=== PATIENT | female | born 1945 | race Caucasian/White ===

== ENCOUNTER 2024-06-25 11:45 | Outpatient (CLI) | payer MEDICARE, SELFPAY ==
--- NOTE | ~2024-06-25 | CT_ITS ---
EXAMINATION: CT brain wo con DATE: 06/25/2024 12:02 INDICATION: Syncope. Collapse. TECHNIQUE: Computed tomography (CT) of the head was performed without intravenous contrast. The dose- length product was 599.57 mGy-cm. Automated exposure control and iterative reconstruction technique w ere employed. COMPARISON: None FINDINGS: Generalized atrophy. There are scattered moderate periventricular and subcortical white mat ter changes, most likely related to small vessel ischemic disease (microangiopathy). There is intracr anial atherosclerosis. No ventriculomegaly or midline shift. Basilar cisterns are patent. No acute in farction, hemorrhage, mass or mass effect. There are changes of lens replacement surgery. Paranasal s inuses and mastoids are pneumatized. No depressed skull fractures. IMPRESSION: 1. No acute intracranial abnormality. 2: Chronic age-related findings. Reviewed, dictated and finalized at location A.
== END 2024-06-25 11:46 | disposition home or self-care (01) ==
LOC: MICIMG 11:47
PROVIDERS: PCP Family Medicine; Visit Provider Family Medicine
DX: R55 Syncope and collapse (principal)
CPT/HCPCS: 70450

== ENCOUNTER 2024-07-08 21:18 | Observation (INO) | payer MEDICARE, SELFPAY ==
[2024-07-08] VITALS (18 sets, daily range): BP systolic 143–158; BP diastolic 82–110; PULSE 83–106; RESP 14–20; TEMP 36.5; O2SAT 94–100
--- NOTE | ~2024-07-08 | XR_ITS ---
XR foot RT min 3V Ordering provider: Timi Delgadillo MD History: . pain s/p fall . Comparison: None. FINDINGS: BONES: No acute fracture or dislocation. Postoperative changes in the first and second metatarsal bon es. Osteopenia of the bones. JOINT SPACES: Narrowing of the tarsometatarsal joints. Osteoarthritic changes of the first and second metatarsophalangeal joints. No tarsal coalition. SOFT TISSUES: Normal. Calcaneal spur. IMPRESSION: No acute osseous abnormality of the right foot. Postoperative changes. Reviewed, dictated and finalized at location A.
--- NOTE | ~2024-07-08 | CT_ITS ---
Noncontrast CT scan of the thoracic spine CLINICAL HISTORY: Back pain, status post fall TECHNIQUE: Axial noncontrast imaging of the thoracic spine was performed. Sagittal and coronal reform atted images were constructed. Dose reduction technique was used on this scan by utilizing automated exposure control and iterative reconstruction technique. The dose-length product (DLP) was 576.24 mGy -cm. FINDINGS: There is mild compression deformity of T6, likely acute to subacute. No other fracture or s ubluxation seen. There is severe degenerative disc narrowing from T6 through T10. There are mild face t joint degenerative changes of lower thoracic spine. No definite disc bulge or herniation seen. No d efinite spinal canal stenosis identified. There is bilateral neural foraminal narrowing at T5-T6, T6- T7, T7-T8. Paravertebral soft tissues are unremarkable. Moderate hiatal hernia noted. Impression: T6 compression fracture, likely acute to subacute. Degenerative changes, as above. Reviewed, dictated and finalized at [facility]. Impression: T6 compression fracture, likely acute to subacute. Degenerative changes, as above.
--- NOTE | ~2024-07-08 | XR_ITS ---
XR chest 2V Ordering provider: Timi Delgadillo MD History: 79 years Female with . dizziness, pt fell . Comparison: None. FINDINGS: MEDIASTINUM: The cardiac silhouette is not enlarged. LUNGS: No infiltrates, effusions or pneumothorax. OTHER: No free air under the diaphragm. Kyphosis. Degenerative the spine. Small soft tissue density i s seen in the left paraspinal area is not seen in the lateral view most likely summation shadow. Foll ow-up 3 months x-rays advised for correlation. IMPRESSION: No acute cardiopulmonary pathology. Reviewed, dictated and finalized at location A.
--- NOTE | ~2024-07-08 | XR_ITS ---
XR ankle RT min 3V Ordering provider: Timi Delgadillo MD History: . pain s/p fall . Comparison: None. FINDINGS: BONES: No acute fracture or dislocation. Osteopenia of the bones. Postoperative changes in the pelvic bones. JOINT SPACES: Slight narrowing of the ankle joint. SOFT TISSUES: Soft tissue swelling over the medial and lateral malleoli. Calcaneus spur. IMPRESSION: No acute osseous abnormality of the right ankle. Reviewed, dictated and finalized at location A.
--- NOTE | ~2024-07-08 | XR_ITS ---
XR hip BI 2V w AP pelvis Ordering provider: Timi Delgadillo MD History: . pain s/p fall . Comparison: None. FINDINGS: BONES: No acute fracture or dislocation. HIP JOINT SPACES: Bilateral hip arthroplasty. SACROILIAC JOINT SPACES/LUMBAR SPINE: The sacroiliac joint spaces are normal. Mild degenerative king es of the visualized lower lumbar spine. Postoperative changes in the spine and iliac bones. PUBIC SYMPHYSIS: Normal. SOFT TISSUES: Normal. IMPRESSION: No acute osseous abnormality of the bilateral hips and pelvis. Postoperative changes in the hips and the spine. Reviewed, dictated and finalized at location A.
--- NOTE | ~2024-07-08 | CT_ITS ---
CT brain wo con Ordering provider: Timi Delgadillo MD History: 79 years Female with . dizzy falls . Comparison: June 25, 2024 Technique: CT of the head without contrast. Radiation reduction technique utilized.The dose-length pr oduct was 681 mGy-cm. 3 FINDINGS: BRAIN PARENCHYMA AND CSF SPACES: Moderate leukoaraiosis and diffuse cortical atrophy. Moderate athero matous disease. No midline shift, mass effect or hemorrhage. The brain parenchyma and CSF spaces are otherwise normal. VISUALIZED PARANASAL SINUSES: Well aerated. MASTOIDS: Well aerated. BONES: The bones appear intact. SOFT TISSUES: Visualized nasopharynx is normal. Superficial soft tissues are normal. Hyperdense area seen in the right orbit unchanged from previous IMPRESSION: No acute intracranial findings. Reviewed, dictated and finalized at location A.
--- NOTE | ~2024-07-08 | CT_ITS ---
Noncontrast CT scan of the cervical spine Technique: Multiple contiguous axial [address] images of the cervical spine were obtained and rec onstructed in 2D sagittal and coronal planes on the acquisition scanner. Dose reduction technique was used on this scan by utilizing automated exposure control, adjustment of the mA and/or kV according to patient size. The dose-length product (DLP) was 147.71 mGy-cm. Clinical History: Pain Findings: No fractures or dislocations. There is advanced degenerative disc narrowing at C5-C6 and C 6-C7. There is bilateral neural foraminal narrowing at C5-C6 and probably C6-C7. No prevertebral soft tissue swelling. Impression: No fracture or subluxation of the cervical spine. Degenerative change at the lower cervical spine, as above. Reviewed, dictated and finalized at location M. Impression: No fracture or subluxation of the cervical spine. Degenerative change at the lower cervical spine, as above.
--- NOTE | ~2024-07-08 | XR_ITS ---
XR wrist RT min 3V Ordering provider: Timi Delgadillo MD History: . pain s/p fall . Comparison: None. FINDINGS: BONES: Old fracture of the ulnar spinous process. Possibility of fracture in the distal ulna cannot b e excluded. Clinical correlation advised. JOINT SPACES: Severe osteoarthritic changes of the first carpometacarpal joint and scaphotrapezial ghanshyam int. Narrowing of the radiocarpal joint. SOFT TISSUES: Normal. IMPRESSION: Possible fracture in the distal ulna. Clinical correlation advised Reviewed, dictated and finalized at location A.
--- NOTE | ~2024-07-08 | MR_ITS ---
EXAMINATION: MR brain/brain stem wo/w con DATE: 07/09/2024 12:35 INDICATION: Dizziness TECHNIQUE: Magnetic resonance imaging (MRI) of the brain and brainstem was performed without and with 10 mL ProHance intravenous contrast. Sequences included sagittal and axial T1-weighted SE, axial dif fusion-weighted FS SE, axial T2*-weighted GRE, axial T2-weighted FLAIR, and axial T2-weighted FSE. Po stcontrast axial and coronal T1-weighted SE was obtained. Apparent diffusion coefficient (ADC) maps w ere created. COMPARISON: CT dated 07/08/2024 FINDINGS: There are no areas of restricted diffusion to suggest acute infarction. No intracranial hemorrhage or abnormal intracranial mass lesion. There are scattered areas of nonspecific increased T2-weighted si gnal intensity in the pontine and cerebral white matter, predominantly involving the deep and periven tricular white matter. There are no intraparenchymal signal abnormalities seen on the other pulse seq uences. Symmetric prominence of the sulci and ventricles consistent with moderate age-appropriate dif fuse cerebral volume loss. There are no abnormal extra-axial fluid collections. Flow voids are seen i n the cerebral arteries on the T2-weighted sequences consistent with their expected patency. Changes of bilateral intraocular lens replacement. Visualized orbits and soft tissues are unremarkable. Ther e are no areas of abnormal enhancement on the post contrast images. IMPRESSION: 1. No acute intracranial process. 2. Age-related changes including mild to moderate diffuse volume loss and moderate scattered pontine and cerebral white matter T2 hyperintensity consistent with chronic small vessel ischemic disease. Reviewed, dictated and finalized at location B. IMPRESSION: 1. No acute intracranial process. 2. Age-related changes including mild to moderate diffuse volume loss and moder ate scattered pontine and cerebral white matter T2 hyperintensity consistent wi th chronic small vessel ischemic disease.
--- NOTE | 2024-07-08 21:21 | ECG_ITS ---
Test Date: 2024-07-08 21:26:12 Measurements Intervals Mayo Rate: 96 P: 6 DE: 194 QRS: -7 QRSD: 56 T: 10 QT: 317 QTc: 402 Interpretive Statements SINUS RHYTHM EARLY PRECORDIAL R/S TRANSITION BASELINE ARTIFACT- II, III, AVR, AVL, AVF, V1-V6 BORDERLINE ECG No previous ECG available for comparison Electronically Signed On 07-09-2024 06:19:23 CDT by Vincenzo Colvin D.O.
[2024-07-08 21:45] LABS: Basophils Percent Auto 0.3 % (0.2-1.2); Eosinophils Absolute Auto 0.1 K/mm3 (0-0.3); Eosinophils Percent Auto 1.1 % (0-4.4); Hematocrit 33.9 % (37.0-47.0); Hemoglobin 10.8 g/dL (12.0-15.0); Immature Granulocyte Absolute 0.02 K/mm3 (0.00-0.031); Immature Granulocyte Percent A 0.3 % (0-0.5); Lymphocytes Percent Auto 12.3 % (18.3-44.2); Mean Corpuscular HGB Conc 31.9 g/dl (32-36); Mean Corpuscular Hemoglobin 29.3 pg (26-34); Mean Corpuscular Volume 92.1 fl (80-100); Mean Platelet Volume 9.8 fl (7.4-10.4); Monocytes Absolute Auto 0.7 K/mm3 (0.1-0.6); Neutrophils Absolute Auto 4.9 K/mm3 (1.3-6.7); Platelet Count Result 327 k/mm3 (150-375); Red Blood Count 3.68 M/mm3 (4.2-5.4); Red Cell Distribution Width 14.6 % (11.5-14.5); White Blood Count 6.5 K/mm3 (4.5-10.0)
[2024-07-08 21:55] LABS: Alanine Aminotransferase 14 U/L (6-35); Albumin Level 4.1 g/dL (3.5-5.1); Alkaline Phosphatase 79 U/L (38-126); Anion Gap 10 mmol/L (4-12); Aspartate Amino Transferase 23 U/L (14-36); Bilirubin,Total 0.6 mg/dL (0.2-1.3); Blood Urea Nitrogen 18 mg/dL (7-17); Calcium 8.6 mg/dL (8.4-10.2); Carbon Dioxide 22 mmol/L (22-30); Chloride 97 mmol/L (98-107); Estimated CRCL calculation 44 ml/min; Estimated Glomerular Filt Rate > 60; Glucose 117 mg/dL (65-110); Potassium 4.4 mmol/L (3.4-5.0); Sodium 129 mmol/L (137-145)
--- NOTE | 2024-07-08 22:05 | PC.NURSE ---
Went into pt room to give medication. Pt at scan. Will give medication when pt is back in room.
--- OUTSIDE RECORDS SUMMARY | 2024-07-08 22:18 | XMS_ITS | Referral Summary ---
Author Organization [facility] Medical Office Building B Address [address] [place] [address] Care Team Providers Care Aerial Installer Name Role Phone Ruddy Kingsley MD Primary Care Provider Encounters Date Type Department Care Team Description 06/28/2024 Orders Only [facility] Medical Group Primary Care at [address] [phone] Ruddy Kingsley MD Syncope and collapse 06/24/2024 12:30 PM CDT Ancillary Procedure [facility] Medical [facility] Cardiology at [address] [place] [address] Syncope, unspecified syncope type 05/27/2024 Telephone [facility] Medical [facility] Primary Care at [address] [phone] Ruddy Kingsley MD Medical Question/Miscellane ous 05/24/2024 Telephone [facility] Advanced Medicine 8th [place] [address] [place] [phone] Shelia Johansen 05/21/2024 Results Follow-Up [facility] Medical [facility] Primary Care at [address] [phone] Ruddy Kingsley MD Anemia, unspecified type (Primary Dx) 05/20/2024 10:00 AM [facility] Ancillary Procedure [facility] Vascular and Vein Surgery at [address] [place] [address] Syncope, unspecified syncope type; Syncope and collapse 05/19/2024 10:38 AM [facility] - 05/19/2024 11:59 PM [facility] Hospital Encounter [address] [address] Syncope, unspecified syncope type Discharge Disposition: Discharge to home or self care 05/19/2024 10:30 AM [facility] Lab [facility] Outpatient Lab at [address] [phone] 05/19/2024 9:45 AM [facility] Office Visit [facility] Primary Care at [address] [phone] Ruddy Kingsley MD Syncope, unspecified syncope type (Primary Dx); Syncope and collapse 05/18/2024 Nurse Triage [facility] Primary Care at [address] [phone] Sharee Tariq RN from Last 3 Months Allergies Active Allergy Reactions Criticality Noted Date Comments Mold Other (See comments),Rhinitis Low 11/26/2013 MOLD AND DUST CAUSE EYE IRRITATION AND RUNNY NOSE Other Rhinitis Low 02/22/2021 Agent: Dust Medications traMADoL (ULTRAM) 50 mg tabletIndications :Degeneration of intervertebral disc of lumbar region, unspecified whether pain present TAKE ONE-HALF TABLET BY MOUTH EVERY 8 HOURS NEEDED 12/02/19 24 Active latanoprost (XALATAN) 0.005 % ophthalmic solution 07/20/19 21 Active cholecalciferol (VITAMIN D-3) 5,000 unit capsuleIndication s:Vitamin D insufficiency Active cetirizine (ZyrTEC) 10 mg tablet Take 1 tablet (10 mg total) by mouth Active acetaminophen (TYLENOL) 325 mg tablet Take 2 tablets (650 mg total) by mouth every 4 (four) hours as needed 02/25/20 21 Active baclofen (LIORESAL) 10 mg tablet Take 1 tablet (10 mg total) by mouth nightly 01/03/20 21 Active dorzolamide (TRUSOPT) 2 % ophthalmic solution 1 drop 3 (three) times a day Active lisinopriL (PRINIVIL,ZESTRIL ) 10 mg tabletIndications :Essential hypertension Take 1 tablet (10 mg total) by mouth daily 90 tablet 3 01/22/20 24 2024 Active ferrous sulfate 325 mg (65 mg of elemental iron) tabletIndications :Iron Deficiency Anemia Take 1 tablet (325 mg total) by mouth daily with breakfast 30 tablet 05/21/[address] (PROTONIX) 40 mg EC tabletIndications :Gastroesophageal reflux disease without esophagitis Take 1 tablet (40 mg total) by mouth daily 30 tablet 3 06/30/19 25 2025 Active venlafaxine XR (EFFEXOR-XR) 150 mg 24 hr capsule Take 1 capsule (150 mg total) by mouth daily Take with 75 mg xr tab to bring total dose to 225 mg daily 30 capsule 06/30/19 Active venlafaxine XR (EFFEXOR-XR) 75 mg 24 hr capsule Take 1 capsule (75 mg total) by mouth daily Take with 150 mg xr tab to bring total dose to 225 mg daily 30 capsule 06/30/192025 Active pantoprazole DR (PROTONIX) 40 mg EC tabletIndications :Gastroesophageal reflux disease without esophagitis Take 1 tablet (40 mg total) by mouth daily 12/14/19 21 2024 Discontinued(R eorder) venlafaxine 225 mg tablet extended release 24hr 24 hr tabletIndications :Anxiety with Depression Take 1 tablet (225 mg total) by mouth daily with breakfast 30 tablet 3 01/22/20 24 2024 Discontinued Active Problems Problem Noted Date Diagnosed Date Syncope 05/23/2024 Encounter for medical examination to establish c are 01/22/2024 Assessment & Plan (01/22/2024 11:50 AM CDT): A(n) initial well visit to establish care has been performed today. Stella Connors is not up to date on screening tests. She is in need of DEXA, hepatitis B, C, and Cholesterol screening. She is not up to date on needed preventative vaccinations; She is in need of Influenza and Zoster. We discussed healthy lifestyle habits, educational material has been given. Medications reviewed, changes documented as per the medical record and discussed with patient along with risks vs benefits. Specific topics reviewed: drugs, ETOH, and tobacco, importance of regular dental care, importance of regular exercise, importance of varied diet, limit TV, media violence, minimize junk food, and seat belts. Will increase venlafaxine to 225 mg daily, also increase lisinopril to 10 mg daily Will consider neuroimaging; but I want to see the labs first Continue current regimen otherwise for now Return in 6 months Tension headache, chronic 01/22/2024 Difficulty sleeping 09/18/2021 Cellulitis of left lower leg 02/23/2021 Dizziness 11/24/2020 Urge incontinence 11/24/2020 Myofascial pain 11/02/2020 Postlaminectomy syndrome of lumbar region 2019 Facet degeneration of lumbosacral region 020 Lumbar disc disease with radiculopathy 0 Lumbar disc herniation 06/14/2019 Macrocytic anemia 11/17/2018 B12 deficiency 06/17/2018 Benign paroxysmal positional vertigo 08/21/2017 Incidental pulmonary nodule 06/03/2017 H/O total hip arthroplasty, right 05/26/2017 Primary osteoarthritis of right hip 05/26/2017 DDD (degenerative disc disease), lumbar 05/12/19 18 Glaucoma of both eyes 05/12/2017 Overview (01/22/2024): Only using drops in right eye Seasonal allergic rhinitis due to pollen 018 Insomnia 12/25/2015 Gastroesophageal reflux disease 06/23/2015 Hyperglycemia 06/23/2015 Recurrent major depressive disorder, in full rem ission 06/23/2015 Localized osteoarthrosis of left hip 03/09/2013 Degenerative arthritis of hip 02/16/2013 Hyperlipidemia 12/30/2012 Overview (01/22/2024): KOKI REVELES MD Raynaud's syndrome 06/22/2010 Overview (01/22/2024): Severity:controlled Chronicity:chronic NASRIN GEE MD Chronic low back pain 04/26/2010 Overview (01/22/2024): Severity:moderate Chronicity:acute NASRIN GEE MD Depressive disorder 11/29/2009 Overview (01/22/2024): KOKI REVELES MD Essential hypertension 10/30/2007 Overview (01/22/2024): KOKI REVELES MD Immunizations Immunization Administration Dates Next Due H1N1 Inj 04/13/2009 Influenza, Quadrivalent, Hig h Dose, Preservative Free, Intrr 03/18/2022,01/03/2021,12/25/2019 Influenza, Quadrivalent, Spl it, Preservative Free, Intramuscular 12/10/2017,01/12/2014,07/14/2011,02/12 Influenza, Trivalent, High D ose, Split, Preservative Free, Intramuscular 02/22/2019,02/11/2017,02/09/2017,12/24,03/16/2015 Influenza, Trivalent, IM (MDV) 02/06/2023,2021 Influenza, Trivalent, Preser vative Free, Intramuscular 03/31/2013 Influenza, Unspecified 12/28/2023,12/31/2011,01/2011 [employer] Sars-Cov-2 Bivalent V accination (12+ YRS) 03/18/2022 Pneumococcal Conjugate PCV 13 04/19/2015, 015 Pneumococcal Polysaccharide PPV23 12/29/2012 Tdap 04/14/2022 Social History Tobacco Use Types Packs/Day Years Used Date Smoking Tobacco: Never Smokeless Tobacco: Never Tobacco Cessation:Counseling Given: Not Answered AUDIT-C Answer Date Recorded Q1: How often do you have a drink containing alcohol? 4 or more times a week 01/22/2024 Q2: How many drinks containi ng alcohol do you have on a typical day when you are drinking? 1 or 2 Q3: How often do you have si x or more drinks on one occasion? Never 01/22/2024 PHQ-2 Answer Date Recorded PHQ-2 Total Score (If total score is 3 or more points, staff should administer the PHQ-9) 1 05/19/2024 PHQ-9 Answer Date Recorded PHQ-9 Total Score 5 05/19/2024 Comments Unknown Sex and Gender Information Value Date Recorded Sex Assigned at Not on file Legal Sex Female 3:59 PM CDT Gender Identity Not on file Sexual Orientation Not on file Last Filed Vital Signs Vital Sign Reading Time Taken Comments Blood Pressure 112/70 05/19/2024 9:58 AM [facility] Pulse 122 05/19/2024 9:58 AM [facility] Temperature 36 C (96.8 F) 05/19/2024 9:42 AM [facility] Respiratory Rate 18 05/19/2024 9:42 AM [facility] Oxygen Saturation 97% 05/19/2024 9:58 AM [facility] Inhaled Oxygen Concentration - - Weight 56.7 kg (125 lb) 05/19/2024 9:42 AM [facility] Height 152.4 cm (5') 05/19/2024 9:42 AM [facility] Body Mass Index 24.41 05/19/2024 9:42 AM [facility] Plan of Treatment Not on file Procedures Procedure Name Priority Date/Time Associated Diagnosis Comments TRANSTHORACIC ECHO (TTE) COMPLETE W DOPPLER/CF WO CONTRAST Routine 06/24/2024 12:56 PM CDT Syncope, unspecified syncope type US CAROTIDS DUPLEX BILATERAL Schedule Routine, Read Routine (OP Routine) 05/20/2024 10:29 AM [facility] Syncope, unspecified syncope type Syncope and collapse EGFR Routine 05/19/2024 10:38 AM [facility] [facility] Syncope, unspecified syncope type DIFFERENTIAL AUTO Routine 05/19/2024 10: 38 AM [facility] [facility] Syncope, unspecified syncope type MAGNESIUM Routine 05/19/2024 10:38 AM [facility] Syncope, unspecified syncope type COMPREHENSIVE METABOLIC PANEL Routine 05/19/2024 10:38 AM [facility] Syncope, unspecified syncope type CBC WITH AUTO DIFFERENTIAL Routine 05/19/2024 10:38 AM [facility] Syncope, unspecified syncope type ECG 12-LEAD Routine 05/19/2024 10:16 AM [facility] [facility] Syncope, unspecified syncope type from Last 3 Months Results * TRANSTHORACIC ECHO (TTE) COMPLETE W DOPPLER/CF WO CONTRAST (06/24/2024 12:56 PM CDT) LV EF 65 % CONS SCIMAGE Anatomical Region Laterality Modality Ultrasound 06/24/2024 12:3 5 PM CDT Narrative 06/25/2024 7:09 AM CDT [facility] Medical Group Cardiology [address], [address], [place] [address] P:[phone] P:[phone] Echocardiographic Report Patient Name: STELLA CONNORS : 1945 Study Date: 06/24/2024 12:35:22 PM Gender: F Tech: SW Location: [facility] Ref Provider: RUDDY KINGSLEY Height(Cm): 152 BSA: 1.55 Weight(Kg): 56.7 Heart Rate: 93 BP: 112 / 70 Quality: Good Order Provider: RUDDY KINGSLEY PROCEDURES: Echocardiographic Report: Transthoracic echocardiogram with complete 2D, M-Mode, and color Doppler examination. With Strain Analysis. INDICATIONS: R55 Syncope and collapse. MEASUREMENTS: 2D/MM Value Range Doppler Value Range EF Mod BP 54 % [ 54 - 74 ] AV Mean PG 4 mmHg Estimated EF 65 % AV Peak Hira 1.40 m/s [ 1.00 - 1.70 ] LVIDd 2D 3.99 cm [ 3.80 - 5.20 ] AV Peak PG 8 mmHg LVIDd MM 4.79 cm [ 3.80 - 5.20 ] AV VTI 24.81 cm LVIDs 2D 2.65 cm [ 2.20 - 3.50 ] LVOT Peak Hira 0.89 m/s [ 0.70 - 1.10 ] LVIDs MM 3.03 cm [ 2.20 - 3.50 ] LVOT VTI 16.73 cm LVPWd 2D 0.82 cm [ 0.60 - 0.90 ] MV E Peak Hira 0.61 m/s [ 0.60 - 1.30 ] LVPWd MM 0.93 cm [ 0.60 - 0.90 ] MV A Peak Hira 0.93 m/s [ 1.00 - 1.20 ] IVSd 2D 0.76 cm [ 0.60 - 0.90 ] MV Decel Time 179 msec [ 104 - 258 ] IVSd MM 0.76 cm [ 0.60 - 0.90 ] PV Peak Hira 0.72 m/s [ 0.40 - 0.80 ] LA Dimension MM 3.33 cm [ 2.70 - 3.80 ] TR Peak Hira 2.57 m/s [ 1.00 - 2.80 ] AoR Diam MM 3.08 cm [ 2.70 - 3.70 ] TR Peak PG 26 mmHg LA Volume Index 34 cc/m2 [ 16 - 34 ] RVSP 34.00 mmHg [ 10.00 - 36.00 ] Lateral E` 0.07 m/s [ 0.10 - 0.15 ] E/E` 9 2D/MM Value Range Doppler Value Range - FINDINGS: Interpretation Site: Exam was interpreted at [facility]. Left Ventricle: Normal left ventricular size. Normal global left ventricular systolic function. Impaired diastolic relaxation Grade I. Ejection fraction is measured at 54 %. Ejection Fraction is visually estimated to be 65 %. Global Longitudinal Strain is -16 %. Right Ventricle: Normal right ventricular size. Left Atrium: There is mild enlargement of left atrium. Right Atrium: The right atrium is normal in size. Atrial Septum: Normal atrial septum. Mitral Valve: Normal appearance of the mitral valve. Trivial regurgitation of the mitral valve. Aortic Valve: Normal appearance of the aortic valve. Tricuspid Valve: Normal appearance of the tricuspid valve. Estimated peak RVSP is 34 mmHg. Mild tricuspid regurgitation. Pulmonic Valve: Normal appearance of the pulmonic valve. Pericardium: Normal pericardium with no significant pericardial effusion. Aorta: Normal aortic root. IVC: Normal size and normal respiratory collapse consistent with normal right atrial pressure (<5 mmHg). Pulmonary Artery: Normal pulmonary artery size. CONCLUSIONS: Normal left ventricular size. Normal global left ventricular systolic function. Impaired diastolic relaxation Grade I. Ejection fraction is measured at 54 %. Ejection Fraction is visually estimated to be 65 %. Global Longitudinal Strain is -16 %. There is mild enlargement of left atrium. Normal appearance of the mitral valve. Trivial regurgitation of the mitral valve. Electronically Signed By: Jay Wisdom MD, [facility] 06/25/2024 7:09:17 AM CDT Procedure Note Jay Wisdom MD - 06/25/2024 [facility] Medical Group Cardiology [address], [address], [place] [address] P:[phone] P:[phone] Echocardiographic Report Patient Name: STELLA CONNORS : 1945 Study Date: 06/24/2024 12:35:22 PM Gender: F Tech: Location: [facility] Ref Provider: RUDDY KINGSLEY Height(Cm): 152 BSA: 1.55 Weight(Kg): 56.7 Heart Rate: 93 BP: 112 / 70 Quality: Good Order Provider: RUDDY KINGSLEY PROCEDURES: Echocardiographic Report: Transthoracic echocardiogram with complete 2D, M-Mode, and color Dopplerexamination. With Strain Analysis. INDICATIONS: R55 Syncope and collapse. MEASUREMENTS: 2D/MM Value Range Doppler ValueRange EF Mod BP 54 % [ 54 - 74 ] AV Mean PG 4mmHg Estimated EF 65 % AV Peak Hira 1.40m/s [ 1.00 - 1.70 ] LVIDd 2D 3.99 cm [ 3.80 - 5.20 ] AV Peak PG 8mmHg LVIDd MM 4.79 cm [ 3.80 - 5.20 ] AV VTI 24.81cm LVIDs 2D 2.65 cm [ 2.20 - 3.50 ] LVOT Peak Hira 0.89m/s [ 0.70 - 1.10 ] LVIDs MM 3.03 cm [ 2.20 - 3.50 ] LVOT VTI 16.73cm LVPWd 2D 0.82 cm [ 0.60 - 0.90 ] MV E Peak Hira 0.61m/s [ 0.60 - 1.30 ] LVPWd MM 0.93 cm [ 0.60 - 0.90 ] MV A Peak Hira 0.93m/s [ 1.00 - 1.20 ] IVSd 2D 0.76 cm [ 0.60 - 0.90 ] MV Decel Time 179msec [ 104 - 258 ] IVSd MM 0.76 cm [ 0.60 - 0.90 ] PV Peak Hira 0.72m/s [ 0.40 - 0.80 ] LA Dimension MM 3.33 cm [ 2.70 - 3.80 ] TR Peak Hira 2.57m/s [ 1.00 - 2.80 ] AoR Diam MM 3.08 cm [ 2.70 - 3.70 ] TR Peak PG 26mmHg LA Volume Index 34 cc/m2 [ 16 - 34 ] RVSP 34.00mmHg [ 10.00 - 36.00 ] Lateral E` 0.07 m/s [ 0.10 - 0.15 ] E/E` 9 2D/MM Value Range Doppler ValueRange - FINDINGS: Interpretation Site: Exam was interpreted at [facility]. Left Ventricle: Normal left ventricular size. Normal global left ventricular systolicfunction. Impaired diastolic relaxation Grade I. Ejection fraction is measured at 54 %.Ejection Fraction is visually estimated to be 65 %. Global Longitudinal Strain is -16 %. Right Ventricle: Normal right ventricular size. Left Atrium: There is mild enlargement of left atrium. Right Atrium: The right atrium is normal in size. Atrial Septum: Normal atrial septum. Mitral Valve: Normal appearance of the mitral valve. Trivial regurgitation of the mitralvalve. Aortic Valve: Normal appearance of the aortic valve. Tricuspid Valve: Normal appearance of the tricuspid valve. Estimated peak RVSP is 34 mmHg.Mild tricuspid regurgitation. Pulmonic Valve: Normal appearance of the pulmonic valve. Pericardium: Normal pericardium with no significant pericardial effusion. Aorta: Normal aortic root. IVC: Normal size and normal respiratory collapse consistent with normal rightatrial pressure (<5 mmHg). Pulmonary Artery: Normal pulmonary artery size. CONCLUSIONS: Normal left ventricular size. Normal global left ventricular systolicfunction. Impaired diastolic relaxation Grade I. Ejection fraction is measured at 54 %.Ejection Fraction is visually estimated to be 65 %. Global Longitudinal Strain is -16 %. There is mild enlargement of left atrium. Normal appearance of the mitral valve. Trivial regurgitation of the mitralvalve. Electronically Signed By: Jay Wisdom MD, [facility] 06/25/2024 7:09:17 AM CDT us Ruddy Kingsley MD CV ECHO PROCEDURES Final Re sult * US Carotids (05/20/2024 10:29 AM [facility]) Anatomical Region Laterality Modality Vascular Bilateral Ultrasound 05/20/2024 9:54 AM [facility] Narrative 05/21/2024 8:10 AM [facility] Vascular & Vein Surgery [address] [place] [address] Carotid Duplex Ultrasound Report Patient Name: STELLA CONNORS : 1945 (79y ) Study Date: 05/20/2024 9:54:48 AM Gender: F Mail Room Clerk: Location: [facility] Ref Provider: RUDDY KINGSLEY Quality: Adequate Order Provider: RUDDY KINGSLEY PROCEDURES: Carotid Report: Carotid duplex examination of the extracranial arteries was performed using 2D, color and spectral Doppler. INDICATIONS: R55 Syncope and collapse and R55 Syncope and collapse. HISTORY: Hypertension. Hyperlipidemia. COMPARISONS: Prior MRA 03/21/18- WN. MEASUREMENTS: Right Value Left Value RT Prox CCA PSV 104 cm/sec LT Prox CCA PSV 90 cm/sec RT Prox CCA EDV 13 cm/sec LT Prox CCA EDV 12 cm/sec RT Distal CCA PSV 77 cm/sec LT Distal CCA PSV 72 cm/sec RT Distal CCA EDV 15 cm/sec LT Distal CCA EDV 14 cm/sec RT Prox ICA PSV 95 cm/sec LT Prox ICA PSV 89 cm/sec RT Prox ICA EDV 10 cm/sec LT Prox ICA EDV 12 cm/sec RT Mid ICA PSV 91 cm/sec LT Mid ICA PSV 67 cm/sec RT Mid ICA EDV 26 cm/sec LT Mid ICA EDV 19 cm/sec RT Distal ICA PSV 78 cm/sec LT Distal ICA PSV 77 cm/sec RT Distal ICA EDV 18 cm/sec LT Distal ICA EDV 19 cm/sec RT ECA Prx PSV 67 cm/sec LT ECA Prx PSV 57 cm/sec RT ICA/CCA 1.23 ratio LT ICA/CCA 1.23 ratio Rt Vert Dst PSV 62 cm/sec Lt Vert Dst PSV 61 cm/sec FINDINGS: Rt Common Carotid Artery: Duplex imaging of the right common carotid artery is within normal limits without evidence of atherosclerotic disease. Tortuous at origin. Rt Internal Carotid Artery: The plaque in the right internal carotid artery appears to be heterogeneous and smooth. Atherosclerotic changes of the right internal carotid artery without hemodynamically significant Doppler findings. <50% stenosis. Tortuous at distal segment. Rt External Carotid Artery: The right external carotid artery is patent without evidence of atherosclerotic plaque. Rt Vertebral Artery: The right vertebral artery is patent with antegrade flow. Lt Common Carotid Artery: Duplex imaging of the left common carotid artery is within normal limits without evidence of atherosclerotic disease. Lt Internal Carotid Artery: The plaque in the left internal carotid artery appears to be homogenous and smooth. Atherosclerotic changes of the left internal carotid artery without hemodynamically significant Doppler findings. <50% stenosis. Tortuous at distal segment. Lt External Carotid Artery: The left external carotid artery is patent without evidence of atherosclerotic plaque. Lt Vertebral Artery: The left vertebral artery is patent with antegrade flow. Comments: Brachial artery systolic blood pressure is 137 on the right, 128 on the left. CONCLUSIONS: 1. No evidence of hemodynamically significant disease of the bilateral extracranial carotid system. ATTESTATION: I have reviewed and interpreted the pertinent images and measurements of this study. I attest to the conclusions in the final report that is provided above. Electronically Signed By: Deshaun Rodriguez MD 05/21/2024 8:09:43 AM [facility] Procedure Note Deshaun Rodriguez MD - 05/21/2024 Vascular & Vein Surgery [address] [place] [id number] Carotid Duplex Ultrasound Report Patient Name: STELLA CONNORS : 1945 (79y ) Study Date: 05/20/2024 9:54:48 AM Gender: F Mail Room Clerk: Location: [facility] Ref Provider: RUDDY KINGSLEY Quality: Adequate Order Provider: RUDDY KINGSLEY PROCEDURES: Carotid Report: Carotid duplex examination of the extracranial arterieswas performed using 2D, color and spectral Doppler. INDICATIONS: R55 Syncope and collapse and R55 Syncope and collapse. HISTORY: Hypertension. Hyperlipidemia. COMPARISONS: Prior MRA 03/21/18- WNL. MEASUREMENTS: Right Value Left Value RT Prox CCA PSV 104 cm/sec LT Prox CCA PSV 90 cm/sec RT Prox CCA EDV 13 cm/sec LT Prox CCA EDV 12 cm/sec RT Distal CCA PSV 77 cm/sec LT Distal CCA PSV 72 cm/sec RT Distal CCA EDV 15 cm/sec LT Distal CCA EDV 14 cm/sec RT Prox ICA PSV 95 cm/sec LT Prox ICA PSV 89 cm/sec RT Prox ICA EDV 10 cm/sec LT Prox ICA EDV 12 cm/sec RT Mid ICA PSV 91 cm/sec LT Mid ICA PSV 67 cm/sec RT Mid ICA EDV 26 cm/sec LT Mid ICA EDV 19 cm/sec RT Distal ICA PSV 78 cm/sec LT Distal ICA PSV 77 cm/sec RT Distal ICA EDV 18 cm/sec LT Distal ICA EDV 19 cm/sec RT ECA Prx PSV 67 cm/sec LT ECA Prx PSV 57 cm/sec RT ICA/CCA 1.23 ratio LT ICA/CCA 1.23 ratio Rt Vert Dst PSV 62 cm/sec Lt Vert Dst PSV 61 cm/sec FINDINGS: Rt Common Carotid Artery: Duplex imaging of the right common carotidartery is within normal limits without evidence of atherosclerotic disease. Tortuous atorigin. Rt Internal Carotid Artery: The plaque in the right internal carotidartery appears to be heterogeneous and smooth. Atherosclerotic changes of the right internalcarotid artery without hemodynamically significant Doppler findings. <50% stenosis.Tortuous at distal segment. Rt External Carotid Artery: The right external carotid artery is patentwithout evidence of atherosclerotic plaque. Rt Vertebral Artery: The right vertebral artery is patent with antegradeflow. Lt Common Carotid Artery: Duplex imaging of the left common carotid arteryis within normal limits without evidence of atherosclerotic disease. Lt Internal Carotid Artery: The plaque in the left internal carotid arteryappears to be homogenous and smooth. Atherosclerotic changes of the left internalcarotid artery without hemodynamically significant Doppler findings. <50% stenosis.Tortuous at distal segment. Lt External Carotid Artery: The left external carotid artery is patentwithout evidence of atherosclerotic plaque. Lt Vertebral Artery: The left vertebral artery is patent with antegradeflow. Comments: Brachial artery systolic blood pressure is 137 on the right, 128on the left. CONCLUSIONS: 1. No evidence of hemodynamically significant disease of the bilateralextracranial carotid system. ATTESTATION: I have reviewed and interpreted the pertinent images and measurements ofthis study. I attest to the conclusions in the final report that is provided above. Electronically Signed By: Deshaun Rodriguez MD 05/21/2024 8:09:43 AM [facility] Ruddy Kingsley MD IMG US PROCEDURES Final Res ult * eGFR (05/19/2024 10:38 AM [facility]ET [facility]) eGFR 86 >=60 mL/min/1. 73 m2 Comment: Interpretive Data Reference Interval Normal >/= 90 mL/min/1.73m2 Mildly decreased* 60 - 89 mL/min/1.73m2 Mildly to moderately decreased 45 - 59 mL/min/1.73m2 Moderately to severely decreased 30 - 44 mL/min/1.73m2 Severely decreased 15 - 29 mL/min/1.73m2 Kidney Failure < 15 mL/min/1.73m2 *Relative to young adult level Estimated glomerular filtration rate is determined by the 2020 CKD-EPI equation recommended by the National [employer] (A Unifying Approach to GFR Estimation: Recommendations of the NKF-ASK Task Force on Reassessing the Inclusion of Race in Diagnosing Kidney Disease, JASN 2020). The CKD-EPI equation should not be used for patients with unstable renal function and has not been validated in children and those over 70. Current interpretive data was last reviewed 2021. Blood 05/19/2024 10:3 8 AM [facility] 05/19/2024 2:52 PM [facility] Ruddy Kingsley MD LAB BLOOD ORDERABLES Final Result [facility] [id number] [address] [place] [address] * Differential, auto (05/19/2024 10:38 AM MARKET GARDENER) Neutrophil abs 3.2 1.5 - 6.5 K/cumm Imm gran abs 0.0 0.0 - 0.1 K/cumm [facility] Lymphocyte abs 1.7 0.8 - 3.3 K/cumm [facility] Monocyte abs 0.5 0.2 - 0.8 K/cumm [facility] Eosinophil abs 0.2 0.0 - 0.5 K/cumm [facility] Basophil abs 0.0 0.0 - 0.1 K/cumm [facility] Neutrophil pct 56.5 % [facility] Comment: Interpretive Data Percent cell count reference ranges are not reported, since discordance with absolute values may lead to misinterpretation of CBC data. Current Interpretive Data was last revised on 2017. Imm gran pct 0.4 % [facility] Comment: Interpretive Data Percent cell count reference ranges are not reported, since discordance with absolute values may lead to misinterpretation of CBC data. Current Interpretive Data was last revised on 2017. Lymphocyte pct 30.0 % [facility] Comment: Interpretive Data Percent cell count reference ranges are not reported, since discordance with absolute values may lead to misinterpretation of CBC data. Current Interpretive Data was last revised on 2017. Monocyte pct 9.0 % [facility] Comment: Interpretive Data Percent cell count reference ranges are not reported, since discordance with absolute values may lead to misinterpretation of CBC data. Current Interpretive Data was last revised on 2017. Eosinophil pct 3.4 % [facility] Comment: Interpretive Data Percent cell count reference ranges are not reported, since discordance with absolute values may lead to misinterpretation of CBC data. Current Interpretive Data was last revised on 2017. Basophil pct 0.7 % [facility] Comment: Interpretive Data Percent cell count reference ranges are not reported, since discordance with absolute values may lead to misinterpretation of CBC data. Current Interpretive Data was last revised on 2017. Blood 05/19/2024 10:3 8 AM MARKET GARDENER 05/19/2024 2:51 PM MARKET GARDENER us Ruddy Kingsley MD LAB BLOOD ORDERABLES Final Result Performing Organization Address City/State/ZIP Co la Phone Number [facility] [address] Department [place] [address] * (ABNORMAL) CBC with auto differential (05/19/2024 10:38 [address] MARK[address] GARDENER) Pathologist [facility] WBC 5.7 3.8 - 9.9 K/cumm Hgb 9.0(L) 11.9 - 15.5 g/dL [facility] Hct 29.4(L) 35.6 - 45.5 % [facility] Plt 382 150 - 400 K/cumm [facility] MPV 10.1 9.1 - 12.3 fL [facility] RBC 3.12(L) 3.90 - 5.20 M/cumm [facility] MCV 94.2 81.3 - 96.4 fL [facility] MCH 28.8 27.1 - 33.3 pg [facility] MCHC 30.6(L) 32.3 - 35.7 g/dL [facility] RDW CV 14.4 11.1 - 14.9 % [facility] RDW SD 49.2(H) 35.7 - 48.1 fL [facility] NRBC abs 0.00 0.00 - 0.01 K/cumm [facility] Blood 05/19/2024 10:3 8 AM MARKET GARDENER 05/19/2024 2:51 PM MARK[address] GARDENER Ruddy Kingsley MD LAB BLOOD ORDERABLES Final Result Performing Organization Address City/[facility] Co de Phone Number [facility] [address] [place] [address] * Magnesium (05/19/2024 10:38 [address] MARK[address] GARDENER) [facility] Magnesium 2.0 1.4 - 2.5 mg/dL Blood 05/19/2024 10:3 8 AM MARKET GARDENER 05/19/2024 2:51 PM MARK[address] GARDENER Ruddy Kingsley MD LAB BLOOD ORDERABLES Final Result Performing Organization Address [facility] Co de Phone Number [facility] [address] Department [place] [address] * (ABNORMAL) Comprehensive metabolic panel (05/19/2024 10:[address] G[address]ENER) Sodium 131(L) 135 - 145 mmol/L Potassium, pl 4.6 3.3 - 4.9 mmol/L [facility] Chloride 96(L) 97 - 110 mmol/L [facility] CO2 24 22 - 32 mmol/L [facility] Anion gap 11 2 - 15 mmol/L [facility] BUN 18 6 - 25 mg/dL [facility] Creatinine 0.71 0.60 - 1.10 mg/dL [facility] Glucose 93 70 - 199 mg/dL [facility] Comment: Interpretive Data Fasting glucose >/= 126 mg/dl is diagnostic for diabetes. Fasting is defined as no caloric intake for at least 8 hours. Fasting glucose between 100 mg/dl to 125 mg/dl is diagnostic of prediabetes. In a patient with classic symptoms of hyperglycemia or hyperglycemic crisis, a random glucose >/= 200 mg/dl is diagnostic for diabetes. In the absence of unequivocal hyperglycemia, results should be confirmed by repeat testing. The classification and Diagnosis of Diabetes Diabetes Care 2021; 46: S19-S40. Current interpretive data was last revised 2022. Calcium 9.4 8.5 - 10.3 mg/dL [facility] Bilirubin, total 0.3 0.1 - 1.2 mg/dL [facility] Protein, pl 6.8 6.5 - 8.5 g/dL [facility] Albumin 4.1 3.5 - 5.0 g/dL [facility] Alk phos 72 40 - 130 Units/L [facility] ALT 11 7 - 45 Units/L [facility] AST 24 10 - 45 Units/L [facility] Blood 05/19/2024 10:3 8 AM MARK[address] GARDENER 05/19/2024 2:51 PM MARKET GARDENER us Ruddy Kingsley MD LAB BLOOD ORDERABLES Final Result [facility] [place] [id number] [place] [address] * ECG 12-LEAD (05/19/2024 10:16 AM MARK[address] GARDENER) Narrative Ruddy Kingsley MD - 05/19/2024 10:16 AM MARK[address] GARDENER Ruddy Kingsley MD 05/23/2024 11:22 AM ECG 12 lead Date/Time: 05/19/2024 10:16 AM Performed by: Ruddy Kingsley MD Authorized by: Ruddy Kingsley MD Comparison: not compared with previous ECG Previous ECG: no previous ECG available Rhythm: sinus rhythm Rate: normal QRS axis: normal Conduction: conduction normal ST Segments: ST segments normal T flattening: V1-V6 Clinical impression: non-specific ECG us Ruddy Kingsley MD ECG ORDERABLES Edited Resu lt - Final from Last 3 Months Insurance [facility] Address: [address] [address] [facility] Address: [address] [address] Care Teams Aerial Installer Relationship Specialty Start Date End Date Ruddy Kingsley MD [address] [address] PCP - General Family Medicine 01/22/24
--- OUTSIDE RECORDS SUMMARY | 2024-07-08 22:18 | XMS_ITS | Encounter Summary ---
Author Organization [facility] Address [address] [place] [address] Phone Care Team Providers Care Jinriksha Driver Name Role Phone Sudhir Back MD, Holly Elizabeth DO Primary Care Prov ider Reason for Visit * Reason Comments Medication Refill Encounter Details Date Type Department Care Team (Late st Contact Info) Description 03/14/2022 Refill [facility] - Family Medicine - [facility] [address] [place] [address] Bryant Mcallister MD [address] [place] [address] Medication Refill Social History Tobacco Use Types Packs/Day Years Used Date Smoking Tobacco: Never Smokeless Tobacco: Never Alcohol Use Standard Drinks/Week Comments Yes 0 (1 standard drink = 0.6 oz pur e alcohol) 1-2 glass of wine daily PHQ-2 Answer Date Recorded Total Score - Questions 1-9 0 08/30 Education Answer Date Recorded What is the highest level of school you have completed or the highest degree you have received? Associate degree: academic program 05/07/2021 Sexually Active Control Partners Comments Not Currently Comments No Sex and Gender Information Value Date Recorded Sex Assigned at Not on file Legal Sex Female 3:02 AM CANDY STARCH MOLD PRINTER Gender Identity Not on file Sexual Orientation Not on file documented as of this encounter Miscellaneous Notes * Telephone Encounter - Sravanthi Schmidt RN - 03/18/2022 7:52 AM CST Images from the original note were not included. Caroline Gonsalves You 3 days ago RP Left message to call & schedule an appt Y [employer]ARCH [employer] PRINTER * Telephone Encounter - Radha Hanks DO - 03/14/2022 1:19 PM CANDY ST[employer] M[employer] PRINTER tsh and cmp, they were ordered after her 6 month visit in May Y [employer] M[employer] PRINTER * Telephone Encounter - Sravanthi Schmidt RN - 03/14/2022 11:08 AM CST What labs does patient need? Y [employer] M[employer] PRINTER * Telephone Encounter - Radha Hanks DO - 03/14/2022 11:04 AM CST Patient is due for follow up appointment with labs prior Y [employer]ARCH MOLD PRINTER * Telephone Encounter - Debbie Saldivar RN - 03/14/2022 7:26 AM CANDY ST[employer] M[employer] PRINTER Requested Prescriptions Pending Prescriptions Disp Refills ??? lisinopril (PRINIVIL, ZESTRIL) 5 MG Tablet [Pharmacy Med Name: LISINOPRIL 5 MG Tablet] 90 Tablet 3 Sig: TAKE 1 TABLET EVERY DAY Refill request received for Lisinopril 5 mg. RANJEET: 09/14/21 NOV: Visit date not found Last Ordered: 03/20/21 #90 with 3 refills Medication pended and routed for review. Y STARCH MOLD PRINTER documented in this encounter Plan of Treatment Not on file documented as of this encounter Goals Goal Patient Goal Type Associated Problems Recent Progress Patient-Stated? Author I'd like to bend over with a pain score of 7 or below Pain Management No Jeannette Chaidez, RN Note: Goal Reviewed with: patient Readiness to change: Ready to change Department associated with goal: [facility] Steps to achieve goal: injetion documented as of this encounter Visit Diagnoses Not on filedocumented in this encounter Additional Health Concerns Assessment Noted Time PHQ-9 Depression Total Score: 0 05/09/19 22 3:06 PM CANDY ST[employer] M[employer] PRINTER documented as of this encounter Care Teams Jinriksha Driver Relationship Specialty Start Date End Date Radha Hanks DO [address] [place] [address] PCP - General Family Medicine 01/08/20 Sudhir Back MD Consulting Physician Neurological Surgery 02/10/13 documented as of this encounter
--- OUTSIDE RECORDS SUMMARY | 2024-07-08 22:18 | XMS_ITS | Clinical Summary ---
Author Organization [facility] Address [address] [place] [address] Care Team Providers Care Military Science Instructor Name Role Phone Ruddy Kingsley MD Primary Care Provider Allergies Active Allergy Reactions Criticality Noted Date [...] by mouth daily with breakfast 30 tablet 11 05/21/[address] (PROTONIX) [...] hypertension 10/30/2007 Overview (01/22/2024): KOKI REVELES MD Encounters Date Type Department Care Team Description 06/28/[address] [facility] Primary Care at [address] [address] Ruddy Kingsley MD Syncope and collapse 06/24/2024 12:30 PM CDT Ancillary Procedure [facility] Cardiology at [address] [place] [address] Syncope, unspecified syncope type 05/27/2024 Telephone [facility] Primary Care at [address] [address] Ruddy Kingsley MD Medical Question/Miscellane ous 05/24/2024 Telephone [facility] Cardiology [address] [place] [address] 8th [place] [address] [place] [address] Shelia Johansen 05/21/2024 Results Follow-Up [facility] Primary Care at [address] [address] Ruddy Kingsley MD Anemia, unspecified type (Primary Dx) 05/20/2024 10:00 AM BOTTLE SORTER Ancillary Procedure [facility] Vascular and Vein Surgery at [address] [place] [address] Syncope, unspecified syncope type; Syncope and collapse 05/19/2024 10:38 AM BOTTLE SORTER - 05/19/2024 11:59 PM BOTTLE SORTER Hospital Encounter [id number] [place] [address] Syncope, unspecified syncope type Discharge Disposition: Discharge to home or self care 05/19/2024 10:30 AM BOTTLE SORTER Lab [facility] Outpatient Lab at [address] [address] 05/19/2024 9:45 AM BOTTLE SORTER Office Visit [facility] Primary Care at [address] [address] Ruddy Kingsley MD Syncope, unspecified syncope type (Primary Dx); Syncope and collapse 05/18/[address] [facility] Primary Care at [address] [address] Sharee Tariq RN from Last 3 Months Immunizations Immunization Administration Dates Next Due H1N1 Inj 04/13/2009 Influenza, Quadrivalent, Hig h Dose, Preservative Free, Intrr 03/18/2022,01/03/2021,12/25/2019 Influenza, Quadrivalent, Spl it, Preservative Free, Intramuscular 12/10/2017,01/12/2014,07/14/2011,02/12 Influenza, Trivalent, High D ose, Split, Preservative Free, Intramuscular 02/22/2019,02/11/2017,02/09/2017,12/24,03/16/2015 Influenza, Trivalent, IM (MDV) 02/06/2023,2021 Influenza, Trivalent, Preser vative Free, Intramuscular 03/31/2013 Influenza, Unspecified 12/28/2023,12/31/2011,01/2011 Memvu Sars-Cov-2 Bivalent V accination (12+ YRS) 03/18/2022 Pneumococcal Conjugate PCV 13 04/19/2015, 015 Pneumococcal Polysaccharide PPV23 12/29/2012 Tdap 04/14/2022 Surgical History Surgery Date Site/Laterality Comments BREAST BIOPSY 03/05/2016 Right BUNIONECTOMY HIP SURGERY Bilateral hip replacement Medical History Medical History Date Comments Vertigo Hypertension Depression Anxiety Allergic Headache Family History Medical History Relation Name Comments No Known Problems Brother 1 No Known Problems Brother 2 No Known Problems Father Dementia Mother No Known Problems Sister Relation Name Status Comments Brother 1 Alive Brother 2 Alive Father Mother Sister Alive Social History Tobacco Use Types Packs/Day Years [...] on file Sexual Orientation Not on file Obstetrics History Last Filed Vital Signs Vital Sign Reading Time Taken Comments Blood Pressure 112/70 05/19/2024 9:58 AM BOTTLE SORTER Pulse 122 05/19/2024 9:58 AM BOTTLE SORTER Temperature 36 C (96.8 F) 05/19/2024 9:42 AM BOTTLE SORTER Respiratory Rate 18 05/19/2024 9:42 AM BOTTLE SORTER Oxygen Saturation 97% 05/19/2024 9:58 AM BOTTLE SORTER Inhaled Oxygen Concentration - - Weight 56.7 kg (125 lb) 05/19/2024 9:42 AM BOTTLE SORTER Height 152.4 cm (5') 05/19/2024 9:42 AM BOTTLE SORTER Body Mass Index 24.41 05/19/2024 9:42 AM BOTTLE SORTER Plan of Treatment Health Maintenance Due Date Last Done Comments Hepatitis B Screening 1963 Covid-19 Vaccine ( season) 2024 11/27/2023, 03/18/2022, 01/03/2021, Additional history exists Fall Risk Assessment 01/21/2025 01/22/2024 Well Visit 65+ 01/21/2025 01/22/2024 Zoster Vaccine (1 of 2) 01/21/2025 Post poned from 1994 (Insurance / Financial) Depression Screening 05/19/2025 05/19/2024, 05/19/2024, 01/22/2024, Additional history exists Osteoporosis Screening-Bone Density Scan 05/19/2025 11/29/2020, 11/29/2020, 02/20/2016 Postponed from 11/29/2022 (Patient declined, but will receive in the future) DTaP/Tdap/Td Vaccine (2 - Td or Tdap) 04/14/2032 04/14/2022 Pneumococcal vaccine 65+ Completed 016, 12/21/2014, 12/29/2012 Influenza Vaccine Completed 12/28/2023, , 03/19/2022, Additional history exists Procedures Procedure Name Priority Date/Time Associated Diagnosis Comments TRANSTHORACIC ECHO (TTE) COMPLETE W DOPPLER/CF WO CONTRAST Routine 06/24/2024 12:56 PM CDT Syncope, unspecified syncope type US CAROTIDS DUPLEX BILATERAL Schedule Routine, Read Routine (OP Routine) 05/20/2024 10:29 AM BOTTLE SORTER Syncope, unspecified syncope type Syncope and collapse EGFR Routine 05/19/2024 10:38 AM BOTTLE SORTER Syncope, unspecified syncope type DIFFERENTIAL AUTO Routine 05/19/2024 10: 38 AM BOTTLE SORTER Syncope, unspecified syncope type MAGNESIUM Routine 05/19/2024 10:38 AM BOTTLE SORTER Syncope, unspecified syncope type COMPREHENSIVE METABOLIC PANEL Routine 05/19/2024 10:38 AM BOTTLE SORTER Syncope, unspecified syncope type CBC WITH AUTO DIFFERENTIAL Routine 05/19/2024 10:38 AM BOTTLE SORTER Syncope, unspecified syncope type ECG 12-LEAD Routine 05/19/2024 10:16 AM BOTTLE SORTER Syncope, unspecified syncope type from Last 3 Months Results * TRANSTHORACIC ECHO (TTE) COMPLETE W DOPPLER/CF WO CONTRAST (06/24/2024 12:56 PM CDT) LV EF 65 % CONS SCIMAGE Anatomical Region Laterality Modality Ultrasound 06/24/2024 12:3 5 PM CDT Narrative 06/25/2024 7:[address] [facility] Cardiology [address], [address], [place] [address] P:[phone] P:[phone] Echocardiographic Report Patient Name: STELLA CONNORS : [...] FINDINGS: Interpretation Site: Exam was interpreted at [facility]. Left Ventricle: Normal left ventricular [...] valve. Electronically Signed By: Jay Wisdom MD, [facility] 06/25/2024 7:09:17 AM CDT Procedure Note Jay Wisdom MD - 06/25/2024 [facility] Cardiology [address], [address], [place] [address] P:[phone] P:[phone] Echocardiographic Report Patient Name: STELLA CONNORS : [...] FINDINGS: Interpretation Site: Exam was interpreted at [facility]. Left Ventricle: Normal left ventricular [...] mitralvalve. Electronically Signed By: Jay Wisdom MD, [facility] 06/25/2024 7:09:17 AM CDT us Ruddy Kingsley MD CV ECHO PROCEDURES Final Re sult * Vl US Carotids (05/20/2024 10:29 AM BOTTLE SORTER) Anatomical Region Laterality Modality Vascular Bilateral Ultrasound 05/20/2024 9:54 AM BOTTLE SORTER Narrative 05/21/2024 8:10 AM BOTTLE SORTER Vascular & Vein Surgery [address] [place] [address] Carotid Duplex Ultrasound Report Patient Name: STELLA CONNORS : 1945 (79y ) Study Date: 05/20/2024 9:54:48 AM Gender: F Butcher All Round: Location: VV Ref Provider: RUDDY KINGSLEY Quality: Adequate Order [...] By: Deshaun Rodriguez MD 05/21/2024 8:09:43 AM BOTTLE SORTER Procedure Note Deshaun Rodriguez MD - 05/21/2024 Vascular & Vein Surgery [address] [facility] [place] [address] Carotid Duplex Ultrasound Report Patient Name: STELLA CONNORS : 1945 (79y ) Study Date: 05/20/2024 9:54:48 AM Gender: F Butcher All Round: Location: VVSE Ref Provider: RUDDY KINGSLEY Quality: Adequate Order [...] By: Deshaun Rodriguez MD 05/21/2024 8:09:43 AM BOTTLE SORTER us Ruddy Kingsley MD IM US PROCEDURES Final Res ult * eGFR (05/19/2024 10:38 AM BOTTLE SORTER) eGFR 86 >=60 mL/min/1. 73 m2 Comment: [...] reviewed 2021. Blood 05/19/2024 10:3 8 AM BOTTLE SORTER 05/19/2024 2:52 PM BOTTLE SORTER us Ruddy Kingsley MD LAB BLOOD ORDERABLES Final Result [facility] [id number] Department [place] [address] * Differential, auto (05/19/2024 10:38 AM BOTTLE SORTER) Pathologist [facility] Neutrophil abs 3.2 1.5 - 6.5 K/cumm Imm gran abs 0.0 0.0 - 0.1 K/cumm [facility] Lymphocyte abs 1.7 0.8 - 3.3 K/cumm [facility] Monocyte abs 0.5 0.2 - 0.8 K/cumm [facility] Eosinophil abs 0.2 0.0 - 0.5 K/cumm [facility] Basophil abs 0.0 0.0 - 0.1 K/cumm [facility] Neutrophil pct 56.5 % [facility] Comment: Interpretive Data Percent cell count reference ranges are not reported, since discordance with absolute values may lead to misinterpretation of CBC data. Current Interpretive Data was last revised on 2017. Imm gran pct 0.4 % [facility] Comment: Interpretive Data Percent cell count reference ranges are not reported, since discordance with absolute values may lead to misinterpretation of CBC data. Current Interpretive Data was last revised on 2017. Lymphocyte pct 30.0 % [facility] Comment: Interpretive Data Percent cell count reference ranges are not reported, since discordance with absolute values may lead to misinterpretation of CBC data. Current Interpretive Data was last revised on 2017. Monocyte pct 9.0 % [facility] Comment: Interpretive Data Percent cell count reference ranges are not reported, since discordance with absolute values may lead to misinterpretation of CBC data. Current Interpretive Data was last revised on 2017. Eosinophil pct 3.4 % [facility] Comment: Interpretive Data Percent cell count reference ranges are not reported, since discordance with absolute values may lead to misinterpretation of CBC data. Current Interpretive Data was last revised on 2017. Basophil pct 0.7 % [facility] Comment: Interpretive Data Percent cell count reference ranges are not reported, since discordance with absolute values may lead to misinterpretation of CBC data. Current Interpretive Data was last revised on 2017. Blood 05/19/2024 10:3 8 AM BOTTLE SORTER 05/19/2024 2:51 PM BOTTLE SORTER us Ruddy Kingsley MD LAB BLOOD ORDERABLES Final Result Performing Organization Address City/State/[facility] Co de Phone Number [facility] [address] Department [place] [address] * (ABNORMAL) CBC with auto differential (05/19/2024 10:38 AM BOTTLE SORTER) WBC 5.7 3.8 - 9.9 K/cumm Hgb 9.0(L) 11.9 - 15.5 g/dL [facility] Hct 29.4(L) 35.6 - 45.5 % [facility] Plt 382 150 - 400 K/cumm [facility] MPV 10.1 9.1 - 12.3 fL [facility] RBC 3.12(L) 3.90 - 5.20 M/cumm CERNER [...] [facility] Blood 05/19/2024 10:3 8 AM BOTTLE SORTER 05/19/2024 2:51 PM BOTTLE SORTER Ruddy Kingsley MD LAB BLOOD ORDERABLES Final Result Performing Organization Address [facility] Co dc Phone Number [facility] [address] [facility] [place] [address] * Magnesium (05/19/2024 10:38 AM BOTTLE SORTER) [facility] Magnesium 2.0 1.4 - 2.5 mg/dL Blood 05/19/2024 10:3 8 AM BOTTLE SORTER 05/19/2024 2:51 PM BOTTLE SORTER Ruddy Kingsley MD LAB BLOOD ORDERABLES Final Result Performing Organization Address [facility] Phone Number [facility] [address] [place] [address] * (ABNORMAL) Comprehensive metabolic panel (05/19/2024 10:38 AM BOTTLE SORTER) Pathologist [facility] Sodium 131(L) 135 - 145 mmol/L Potassium, pl 4.6 3.3 - 4.9 mmol/L [facility] Chloride 96(L) 97 - 110 mmol/L [facility] CO2 24 22 - 32 mmol/L [facility] Anion gap 11 2 - 15 mmol/L [facility] BUN 18 6 - 25 mg/dL [facility] Creatinine 0.71 0.60 - 1.10 mg/dL [facility] Glucose 93 70 - 199 mg/dL [facility] Comment: Interpretive Data Fasting glucose >/= 126 [...] [facility] Blood 05/19/2024 10:3 8 AM BOTTLE SORTER 05/19/2024 2:51 PM BOTTLE SORTER us Ruddy Kingsley MD LAB BLOOD ORDERABLES Final Result Performing Organization Address City/State/ZIP [facility] Phone Number [facility] [address] [facility] Department [place] [address] * ECG 12-LEAD (05/19/2024 10:16 AM BOTTLE SORTER) Narrative Ruddy Kingsley MD - 05/19/2024 10:16 AM BOTTLE SORTER Ruddy Kingsley MD 05/23/2024 11:22 AM ECG [...] - Final from Last 3 Months Insurance [facility] MEDICARE [facility] Address[id number] [place] [address] [facility] MEDICARE [facility] [facility] Address: [id number] [place] [address] Care Teams Military Science Instructor Relationship Specialty Start Date End Date Ruddy Kingsley MD [address] [place] [address] PCP - General Family Medicine 01/22/24
--- OUTSIDE RECORDS SUMMARY | 2024-07-08 22:18 | XMS_ITS | Encounter Summary ---
Author Organization [facility] Address [address] [place] [address] Phone Care Team Providers Care Fast Brim Pouncer Name Role Phone Sabrina Vazquez MD Primary Care Provider Sudhir Graham MD Unavailable Unavailable Sabrina Vazquez MD Unavailable Unavailable Radha Hanks DO Primary Care Prov ider Reason for Visit * Reason Onset Date Comments Medication Refill 07/23/2019 trazodone 50 m g Encounter Details Date Type Department Care Team (Late st Contact Info) Description 07/23/2019 Refill [facility] [address], [place] [id number] Cheikh Landon MD [address], [place] [id number] Medication Refill (trazodone 50 mg) Social History Tobacco Use Types Packs/Day Years Used Date Smoking Tobacco: Never Smokeless Tobacco: Never Alcohol Use Standard Drinks/Week Comments Yes 0 (1 standard drink = 0.6 oz pur e alcohol) 1-2 glass of wine daily PHQ-2 Answer Date Recorded PHQ-2 Score 0 11/30/2018 Sexually Active Control Partners Comments Not Currently Comments No Sex and Gender Information Value Date Recorded Sex Assigned at Not on file Legal Sex Female 3:02 AM PRINTER SLOTTER FEEDER Gender Identity Not on file Sexual Orientation Not on file COVID-19 Exposure Response Date Recorded In the last month, have you been in contact with someone who was confirmed or suspected to have Coronavirus / COVID-19? No / Unsure 07/02/2019 2:05 PM CDT documented as of this encounter Miscellaneous Notes * Telephone Encounter - Leonarda Escamilla - 07/26/2019 12:04 PM CDT I called patient to get her scheduled for follow up, per patient she does not understand why this refill sent to us, says she has not seen you in a while and says she is doing good and no follow up appointment needed, patient declined follow appt. Told her I will route this to dr for review. * Telephone Encounter - Cheikh Landon MD - 07/26/2019 12:00 PM CDT Sent refill for 30 days, needs to make f/u visit to continue * Telephone Encounter - Leonarda Escamilla - 07/23/2019 2:18 PM CDT Refill request received for trazodone 50 mg. Patient not been seen for a while and does not look like we are refilling this med. Please review RANJEET: 11-06-18 NOV: none Last Filled: Not refilled by us 12-18-18 # 90 Medication pended and routed for review. documented in this encounter Plan of Treatment Not on file documented as of this encounter Visit Diagnoses Diagnosis Major depressive disorder, recurrent episode, in full remission (HCC) Major depressive disorder, recurrent episode, in full remission documented in this encounter Additional Health Concerns Infection Onset Date Last Indicated Resolved Time COVID - 19 Confirmed 03/24/2021 03/27/2021 022 12:16 AM PRINTER SLOTTER FEEDER Assessment Noted Time PHQ-9 Depression Total Score: 0 11/07/19 19 2:00 PM CDT documented as of this encounter Care Teams Fast Brim Pouncer Relationship Specialty Start Date End Date Sabrina Vazquez MD PCP - General Family Medicine 04/11/14 01/07/20 Sabrina Vazquez MD PCP - Payer Assigned Physician Family Medicine 11/17/17 01/07/20 Radha Hanks DO [address] [place] [address] PCP - General Family Medicine 01/08/20 Sudhir Back MD Consulting Physician Neurological Surgery 02/10/13 documented as of this encounter
--- OUTSIDE RECORDS SUMMARY | 2024-07-08 22:18 | XMS_ITS | Continuity of Care Document ---
Author Organization [facility] Address [address] [address] Phone Care Team Providers Care Communications Project Lead Name Role Phone Rudy YUEIveth Unavailable Unavailable Procedures Procedure Date THERAPEUTIC EXERCISES NEUROMUSCULAR RE-ED FUNC ACTIVITY 15 MIN THERAPEUTIC EXERCISES MANUAL THERAPY FUNC ACTIVITY 15 MIN THERAPEUTIC EXERCISES NEUROMUSCULAR RE-ED MANUAL THERAPY FUNC ACTIVITY 15 MIN THERAPEUTIC EXERCISES NEUROMUSCULAR RE-ED FUNC ACTIVITY 15 MIN THERAPEUTIC EXERCISES MANUAL THERAPY FUNC ACTIVITY 15 MIN THERAPEUTIC EXERCISES MANUAL THERAPY FUNC ACTIVITY 15 MIN THERAPEUTIC EXERCISES NEUROMUSCULAR RE-ED MANUAL THERAPY FUNC ACTIVITY 15 MIN PT EVALUATION THERAPEUTIC EXERCISES NEUROMUSCULAR RE-ED MANUAL THERAPY FUNC ACTIVITY 15 MIN Carrying, Moving And Handling Objects-Cu rrent Carrying, Moving And Handling Objects-Go al Medications Name Dose Freq Route DOC Jan Pain Assess Positive DOC 2012 No Falls or 1 Fall w/o Injury Screened f or Fall Risk Advance Directives Directive Yes / No Effective Date File Name No Information Encounters Encounter Description Practice Location Reason(s) For Visit Diagnoses Date Provider Providers Copied on Encounter [facility], [address], [place], [place], [id number], [place] tel:[phone] [facility] [place] No Information 3 Ross Iveth. [address] [place], [address], . tel: [phone] [facility], [address], [place], [place], [id number], [place] tel:[phone] [facility] [place] No Information 2 3 Leopoldo Jovie. [address] [place], [address], [place]. tel: [phone] [facility], [address], [place], [place], [id number], tel:[phone] [facility] No Information 3 Ross Iveth. [address] [place], [address], [place]. tel: [phone] [facility], [address], [place], [place], [id number], [place] tel: [phone] [facility] No Information 3 Ross Iveth. [address] [place], [address], [place]. tel: [phone] [facility], [address], [place], [place], [id number], [place] tel: [phone] [facility] No Information 3 Leopoldo Jovie. [address] [place], [address], [place]. tel: [phone] [facility], [address], [place], [place], [id number], [place] tel:[phone] [facility] No Information 3 Leopoldo Jovie. [address] [place], [address], . tel: [phone] [facility], [address], [place], [place], [id number], tel:[phone] Delmis Alvarenga No Information 3 Rudy Lazaro. [facility] [place], [place], [facility], . tel: [phone] [facility], [address], [place], [place], [id number], tel:[phone] [place] Alva[place]ga Stress incontinence, femaleLumbagoPain in joint involving pelvic region and thigh 3 Leopoldo Jackie. [address] [place], [address], . tel: [phone] Family History Family Member Type Diagnosis Age At Onset No Information Payers Payer name Insurance type Covered democrat ID Authorshayya zoila(s) Medicare [place] [id number] MEDICARE C AP Consociate CI [id number] Social History Type Description Quantity Date Captured Comments Sex Female Smoking Status No Information Chief Complaint And Reason For Visit No Information Reason For Referral Reason For Referral No Information History Of Present Illness Encounter Date Complaint History Of Prese nt Illness No Information Functional Status Date Functional Assessmen t No Information Instructions Date Instruction Additional Infor mation No Information Assessments Type Assessment Date No Information Patient Care Teams Name Effective Dates (start - stop) Status Members No Information
--- OUTSIDE RECORDS SUMMARY | 2024-07-08 22:18 | XMS_ITS | Encounter Summary ---
Author Organization [facility] Address [address] [facility] 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 Gender Identity Not on file Sexual Orientation Not on file documented as of this encounter Plan of Treatment Not on file documented as of this encounter Procedures Procedure Name Priority Date/Time Associated Diagnosis Comments HEMATOLOGICAL CHROMOSOME ANALYSIS Routine 01/21/2020 2:00 PM CDT Anemia, unspecified BONE MARROW, FLOW CYTOMETRY Routine 01/21/2020 2:00 PM CDT Anemia, unspecified FISH, MDS/MYELOID PANEL -5/5Q-,-7/7Q-,+8,20Q-, ELEROY FFMDS Routine 01/21/2020 2:00 PM CDT Anemia, unspecified PATHOLOGY BONE MARROW Routine 01/21/2020 2:00 PM CDT Anemia, unspecified documented in this encounter Results * FISH, MDS/MYELOID PANEL -5/5Q-,-7/7Q-,+8,20Q-,ELEROY FFMDS (01/21/2020 2:00 PM CDT) Pathologist [facility] FFMDS, FISH MDS PANEL SEE SCANNED RESULT 01/28/2020 10:47 AM CDT [facility] Comment: Testing is complete. Final report has been sent to the referring laboratory. Note: There may be a delay of up to 2 hours before report is available to view in [facility]. Test Performed by: [facility] [address] [place] [id number] This is a corrected result. Previous result was SEE NOTE on 01/28/2020 at 0935 CDT Blood Venipuncture / Unknown 01/21/2020 2:00 PM CDT 01/22/2020 8:20 AM CDT us Fidel Mcclain MD LAB SEND OUT GENETIC Edited Result - Final [facility] [address] [place] [address], * BONE MARROW, FLOW CYTOMETRY (01/21/2020 2:00 PM CDT) Pathologist [facility] Final Diagnosis Bone marrow aspirate findings: No abnormal lymphoid or progenitor cell population is detected. See comment. 01/24/2020 10:55 AM CDT [facility] at 1055 CDT Comment See also results reported for material allocated for routine processing ([id number]). 01/24/2020 10:55 AM CDT [facility] Gross Description A. Received in an EDTA anticoagulated tube is a total of 1.0 mL bone marrow aspirate. 01/24/2020 10:55 AM [facility] Microscopic Description Stella Antunez is a 74-year-old female with a history of cytopenias. Bone marrow aspirate was procured and a portion of the sample was allocated for flow cytometric evaluation. A cell suspension of the allocated material was prepared and incubated with a panel of antibodies that identify lymphocyte, plasma cell and progenitor cell maturation and differentiation antigens. Evaluation of the cells in the gated QL12-mnpegrni mononuclear cell region shows 71% CD3-positive T-cells in a T-helper to suppressor cell ratio of 5.1. T-cells show appropriate expression of matthews T-cell antigen CD5 and they show appropriate expression of either CD4 or CD8. Also present is a population of SS31-mfgawkuu B-cells that account for 11% of the cells in the gated region. B-cells coexpress CD20 and CD22. B-cells demonstrate no evidence of surface kappa or lambda immunoglobulin light chain restriction. Also present is a population of OH21-balipqju progenitor cells (blasts) that account for an estimated less than 2% of nucleated cells in the prepared cell suspension. Selective evaluation of GF67-snfwcimg cells reveals a population of ZK57-qbakwotb apparent plasma cells that account for an estimated less than 2% of nucleated cells in the prepared cell suspension. The cell population shows no evidence of cytoplasmic kappa or lambda immunoglobulin light chain restriction. Evaluation of a Grover stained bone marrow aspirate smear and cytospin preparation shows mixed hematopoietic precursors. 01/24/2020 10:55 AM [facility] Phenotyping Markers Utilized Marker Principle Reactivity CD3 T-cell lineage-associated CD4 T-cell subset CD5 T-cell lineage-associated CD8 T-cell subset, NK-cell lineage-associated CD10 B-cell lineage-associated CD11c NK-cell, monocytic lineage-associated CD19 B-cell lineage-associated CD20 B-cell lineage-associated CD22 B-cell lineage-associated CD23 Activated B-cell lineage-associated CD25 Interleukin-2 receptor CD34 Hematopoietic progenitor cells CD38 B-cell subset CD45 Leukocytes, broad spectrum CD56 NK-cell lineage-associated cCD79a Cytoplasmic B-cell lineage-associated CD138 B-cell lineage-associated Weston Surface immunoglobulin light chain Lambda Surface immunoglobulin light chain cyto-Weston Cytoplasmic immunoglobulin light chain cyto-Lambda Cytoplasmic immunoglobulin light chain This test was developed and its performance characteristics determined by [facility]. It has not been cleared or approved by the U.S. Food and Drug Administration. 01/24/2020 10:55 AM CDT [facility] Comment: This document was completed utilizing speech recognition software. Grammatical errors, random word insertions, pronoun errors, and incomplete sentences are an occasional consequence of this system due to software limitations, ambient noise, and hardware issues. Any formal questions or concerns about the content, text or information contained within the body of this dictation should be directly addressed to the provider for clarification. Case Report Flow Cytometry Report Case: [id number] Authorizing Provider: Fidel Mcclain, Collected: 01/21/2020 02:00 PM Ordering Location: [facility] Received: 01/22/2020 08:37 AM [facility] Laboratory Services Pathologist: Ever Knowles MD Specimen: Bone Marrow 01/24/2020 10:55 AM CDT [facility] Bone Marrow BONE MARROW SPECIMEN / Unknown 01/21/2020 2:00 PM CDT 01/22/2020 8:37 AM CDT us Fidel Mcclain MD PATHOLOGY/CYTOLOGY O RDERABLES Final Result Performing Organization Address City/State/[facility] Co de Phone Number [facility] [address] [place] [address], * HEMATOLOGICAL CHROMOSOME ANALYSIS (01/21/2020 2:00 PM CDT) Final Diagnosis Normal 46,XX[20] 02/07/2020 3:27 PM WILDLIFE CONSERVATION PROFESSOR [facility] at 1527 WILDLIFE CONSERVATION PROFESSOR LAB AP CLINICAL INDICATION Anemia, unspecified 02/07/2020 3:27 PM WILDLIFE CONSERVATION PROFESSOR [facility] LAB AP METHOD Cells from a bone marrow aspirate specimen were cultured for 24 and 48 hours without mitogen and harvested after mitotic arrest. Slides were stained using a GTG-banding procedure. Chromosome number and structure were analyzed at the microscope. Karyotypes of selected metaphases were prepared using an image analysis system. No. of Cells Counted: 20 Modal Chromosome No.: 46 No. of Cells Analyzed: 20 No. of Clones: 1 No. of Cells Captured: 20 No. of Nonclonal Cells: 1 No. of Cells Karyotyped: 8 Haploid Band Resolution: 400 02/07/2020 3:27 PM [facility] Cytogenetic analysis revealed a modal karyotype containing 46 chromosomes, including two X chromosomes. No consistent numerical or structural abnormalities were detected. These results indicate a female with an apparently normal banding pattern. 02/07/2020 3:27 PM [facility] AP RELATED ORDERS A portion of the specimen was sent to [facility], subsequently referred to [facility], for FISH analysis for MDS panel, and results were reported to be negative. 02/07/2020 3:27 PM WILDLIFE CONSERVATION PROFESSOR [facility] Case Report Surgical Pathology Report Case: [id number] Authorizing Provider: Fidel Mcclain, Collected: 01/21/2020 02:00 PM Ordering Location: [facility] Received: 01/22/2020 08:37 AM [facility] Laboratory Services Pathologist: Emi Valdez, PhD Specimen: Bone Marrow 02/07/2020 3:27 PM WILDLIFE CONSERVATION PROFESSOR [facility] Other BONE MARROW SPECIMEN / Unknown 01/21/2020 2:00 PM CDT 01/22/2020 8:37 AM CDT us Fidel Mcclain MD PATHOLOGY/CYTOLOGY O RDERABLES Final Result Performing Organization Address City/State/[facility] Co de Phone Number [facility] [address] [place] [address], * PATHOLOGY BONE MARROW (01/21/2020 2:00 PM CDT) Case Report Bone Marrow Pathology Report Case: [id number] Authorizing Provider: Fidel Mcclain, Collected: 01/21/2020 02:00 PM Ordering Location: [facility] Received: 01/22/2020 08:37 AM [facility] Laboratory Services Pathologist: Juan Bradford MD Specimen: Bone Marrow, Left iliac 01/27/2020 1:19 PM CDT [facility] Final Diagnosis Bone marrow aspirate smears, core biopsy and aspirate clot: 1. Mildly hypocellular bone marrow for age with maturing trilineage hematopoiesis. 2. Normocytic anemia with adequate iron stores. 3. No morphologic or immunophenotypic evidence of malignancy. 4. See comment. 01/27/2020 1:19 PM CDT [facility] at 1319 CDT Comment Flow cytometry revealed no abnormal lymphoid or myeloid cell population (see [id number]). Cytogenetic studies are pending and will be reported separately (see [id number]). 01/27/2020 1:19 PM CDT [facility] Bone Marrow Summary Number of cells counted: 300 Myeloid/Erythroid ratio: 3.1 Blasts Less than 2% Promyelocytes Less than 2% Myelocytes 4% Metamyelocytes 23% Segmented/band neutrophils 39% Eosinophils 3% Monocytes 3% Lymphocytes 5% Plasma cells 1% Erythroid precursors 22% 01/27/2020 1:19 PM CDT [facility] Gross Description A. Left iliac Received are blood cell count data, peripheral blood smear, bone marrow aspirate smears, touch imprint, core biopsy and aspirate clot from the above patient. The core biopsy is submitted for decalcification prior to histologic processing. 01/27/2020 1:19 PM CDT [facility] Microscopic Description Peripheral blood cell count performed on 01-21-2020 shows a hemoglobin of 10.9 g/dl, hematocrit 33.8%, MCV 95.5 fl, MCH 30.8 pg, and RDW 12.6%. White blood cells number 4680/cmm with a differential that shows 39% neutrophils, 48% lymphocytes, 9% monocytes, 3% eosinophils and 1% basophils. Platelets number 306,000/cmm. Evaluation of a Grover-stained blood smear shows a normochromic, normocytic red blood cell population with no anisopoikilocytosis . White cells appear adequate in number with a differential as described above. Granulocytes show no significant nuclear hyper or hyposegmentation. Granulocytes show no significant cytoplasmic hypogranulation. Platelets appear adequate in number and show no diagnostic morphologic changes. Bone marrow aspirate smears and touch imprint are adequate for evaluation. Erythroid precursors are adequately represented and show normoblastic maturation. Myeloid precursors are adequately represented and show control officer manager maturation. Megakaryocytes are adequately represented; no abnormal forms are seen. No increase in blasts is seen. Bone marrow biopsy and aspirate clot sections demonstrate similar histologic findings and therefore they are described together. These demonstrate adequate sampling of medullary tissue with an overall cellularity of 10-20%. The estimated myeloid/erythroid ratio appears normal. Erythroid, myeloid, and megakaryocytic precursors are all represented and show progressive cellular maturation. No lymphoid aggregates, granulomatous inflammation, necrosis or metastatic tumor are seen. One iron-stained aspirate clot and one core biopsy are reviewed. Iron stores appear adequate. Sideroblasts are present. Ring sideroblasts are not increased in number. Reticulin stain shows no significant reticulin fibrosis. Trichrome stain is negative for collagen fibrosis. CD34 and CD117 immunostains reveal scattered positive blasts. E-cadherin immunostain is positive in erythroid precursors. Factor VIII immunostain highlights megakaryocytes present in adequate numbers. Controls reacted appropriately. 01/27/2020 1:19 PM CDT [facility] Comment: This document was completed utilizing speech recognition software. Grammatical errors, random word insertions, pronoun errors, and incomplete sentences are an occasional consequence of this system due to software limitations, ambient noise, and hardware issues. Any formal questions or concerns about the content, text or information contained within the body of this dictation should be directly addressed to the provider for clarification. Bone Marrow BONE MARROW SPECIMEN / Unknown 01/21/2020 2:00 PM CDT 01/22/2020 8:37 AM CDT us Fidel Mcclain MD PATHOLOGY/CYTOLOGY O RDERABLES Final Result [facility] [address] [facility] [facility] [place] [address], documented in this encounter Visit Diagnoses Diagnosis Anemia, unspecified documented in this encounter Additional Health Concerns Infection Onset Date Last Indicated Resolved Time COVID - 19 Confirmed 03/24/2021 03/27/2021 022 12:16 AM WILDLIFE CONSERVATION PROFESSOR Assessment Noted Time PHQ-9 Depression Total Score: 0 11/07/19 19 2:00 PM CDT documented as of this encounter Care Teams Porter Marina Relationship Specialty Start Date End Date Radha Hanks DO [address] [place] [address] PCP - General Family Medicine 01/08/20 Sudhir Back MD Consulting Physician Neurological Surgery 02/10/13 documented as of this encounter
--- OUTSIDE RECORDS SUMMARY | 2024-07-08 22:18 | XMS_ITS | Encounter Summary ---
Author Organization [facility] Address [address] [place] [address] Care Team Providers Care Mh Teacher Name Role Phone Ruddy Kingsley MD Primary Care Provider Encounter Details Date Type Department Care Team (Late st Contact Info) Description 05/21/2024 Results Follow-Up [facility] Primary Care at [address] [address] Ruddy Kingsley MD [address] [place] [address] [address] [place] [address] Anemia, unspecified type (Primary Dx) Social History Tobacco Use Types Packs/Day Years Used Date Smoking Tobacco: Never Smokeless Tobacco: Never AUDIT-C Answer Date Recorded Q1: How often [...] on file documented as of this encounter Ordered Prescriptions Prescription Sig Dispense Quantity Refills Last Filled Start Date End Date ferrous sulfate 325 mg (65 mg of elemental iron) tabletIndications: Iron Deficiency Anemia Take 1 tablet (325 mg total) by mouth daily with breakfast 30 tablet 11 05/21/2024 documented in this encounter Plan of Treatment Scheduled Orders Name Type Priority Associated Diagnoses Orde r Schedule Guaiac occult blood, fecal, not for neoplasm screening Lab Routine Anemia, unspecified type Expected: 05/21/2024, Expires: 05/21/2025 Urinalysis reflex to microscopic and culture Urine Microbiology Routine Anemia, unspecified type Expected: 05/21/2024 (Approximate), Expires: 05/21/2025 documented as of this encounter Visit Diagnoses Diagnosis Anemia, unspecified type- Primary documented in this encounter Care Teams Mh Teacher Relationship Specialty Start Date End Date Ruddy Kingsley MD [facility] [address] [address] PCP - General Family Medicine 01/22/24 documented as of this encounter
--- OUTSIDE RECORDS SUMMARY | 2024-07-08 22:18 | XMS_ITS | Encounter Summary ---
Author Organization [facility] Address [address] [place] [address] Phone Care Team Providers Care Stoker Installation Mechanic Name Role Phone Sudhir Back MD Unavailable Unavailable Radha Hanks DO Primary Care Prov ider Reason for Visit * Reason Comments Medication Refill Encounter Details Date Type Department Care Team (Late st Contact Info) Description 08/27/2023 Refill [facility] - Family Medicine [facility] [address] [place] [address] Cristian Carrasquillo, APPLICATION SUPPORT ADMINISTRATOR, BECK TENDER [address] [place] [address] Medication Refill Social History Tobacco Use Types Packs/Day Years Used Date Smoking Tobacco: Never Smokeless Tobacco: Never Alcohol Use Standard Drinks/Week Comments Yes 0 (1 standard drink = 0.6 oz pur e alcohol) 1-2 glass of wine daily PHQ-2 Answer Date Recorded Total Score - Questions 1-9 8 01/29 Education Answer Date Recorded What is the highest level of school you have completed or the highest degree you have received? 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 Gender Identity Not on file Sexual Orientation Not on file documented as of this encounter Miscellaneous Notes * Telephone Encounter - Candy Montano CMA - 08/27/2023 8:08 AM CDT Requested Prescriptions Pending Prescriptions Disp Refills venlafaxine (EFFEXOR-XR) 150 MG CAPSULE SR 24 HR [Pharmacy Med Name: VENLAFAXINE HYDROCHLORIDEER 150 MG Capsule Extended Release 24 Hour] 90 Capsule 3 Sig: TAKE 1 CAPSULE EVERY DAY Last ov: 02/10/23 Next ov: none Med last filled: 06/14/23 documented in this encounter Plan of Treatment Not on file documented as of this encounter Goals Goal Patient Goal Type Associated Problems Recent Progress Patient-Stated? Author I'd like to bend over with a pain score of 7 or below Pain Management No Jeannette Chaidez, RN Note: Goal Reviewed with: patient Readiness to change: Ready to change Department associated with goal: [facility] Steps to achieve goal: injetion documented as of this encounter Visit Diagnoses Diagnosis Major depressive disorder, recurrent episode, in full remission (HCC) Major depressive disorder, recurrent episode, in full remission documented in this encounter Additional Health Concerns Assessment Noted Time PHQ-9 Depression Total Score: 8 02/11/20 23 11:38 AM STORES ASSISTANT documented as of this encounter Care Teams Stoker Installation Mechanic Relationship Specialty Start Date End Date Radha Hanks DO [address] [place] [address] PCP - General Family Medicine 01/08/20 Sudhir Back MD Consulting Physician Neurological Surgery 02/10/13 documented as of this encounter
--- OUTSIDE RECORDS SUMMARY | 2024-07-08 22:18 | XMS_ITS | Clinical Summary ---
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 02/21/2016 Active Cyanocobalamin (B-12) 500 MCG Tablet Take 2 Tabs by mouth daily. Active Cholecalciferol (Vitamin D) 125 MCG (5000 UT) Capsule Active latanoprost (XALATAN) 0.005 % Solution 07/19/2020 Active aspirin EC 81 MG Tablet Delayed Response Take 1 Tablet by mouth daily. 100 Tablet 3 04/25/2022 Active meclizine (ANTIVERT) 12.5 MG Tablet 1-2 tablets every 8 hours as needed for vertigo 90 Tablet 3 02/10/2023 Active ACETAMINOPHEN PO Take 650 mg by mouth every 4 hours as needed. Active venlafaxine (EFFEXOR-XR) 150 MG CAPSULE SR 24 HRIndications:M marian depressive disorder, recurrent episode, in full remission (HCC) TAKE 1 CAPSULE EVERY DAY 90 Capsule 3 08/27/2023 Active pantoprazole (PROTONIX) 40 MG Tablet Delayed Response Take 1 Tablet by mouth daily. 90 Tablet 1 09/16/2023 Active lisinopril (PRINIVIL, ZESTRIL) 5 MG Tablet TAKE 1 TABLET EVERY DAY 90 Tablet 10/27/2023 Active Active Problems Problem Noted Date Diagnosed Date Difficulty sleeping 09/18/2021 Urge incontinence 11/24/2020 Dizziness 11/24/2020 Myofascial pain 11/02/2020 Postlaminectomy syndrome of lumbar region 2019 Lumbar disc disease with radiculopathy 0 Lumbar disc herniation 06/14/2019 Facet degeneration of lumbosacral region 020 Macrocytic anemia 11/17/2018 B12 deficiency 06/17/2018 Screen for colon cancer 08/27/2017 Benign paroxysmal positional vertigo 08/21/2017 Incidental pulmonary nodule 06/03/2017 Primary osteoarthritis of right hip 05/26/2017 H/O total hip arthroplasty, right 05/26/2017 DDD (degenerative disc disease), lumbar 05/12/19 18 Seasonal allergic rhinitis due to pollen 018 Glaucoma of both eyes 05/12/2017 Overview (06/03/2017): Only using drops in right eye Insomnia 12/25/2015 Recurrent major depressive disorder, in full rem ission 06/23/2015 Gastroesophageal reflux disease 06/23/2015 Therapeutic drug monitoring 06/23/2015 Hyperglycemia 06/23/2015 Localized osteoarthrosis of left hip 03/09/2013 Chronic low back pain 02/16/2013 Degenerative arthritis of hip 02/16/2013 Essential hypertension Resolved Problems Problem Noted Date Diagnosed Date Resolved Date Suicide attempt using analgesics 06/05/2017 06/17/2018 Bronchopneumonia due to bharath n metapneumovirus (hMPV) 06/04/2017 08/21/2017 Acute respiratory insufficiency 06/03/2017 08/21/2017 Acute bronchitis due to metapneumovirus 06/03/2017 08/21/2017 Hypokalemia 06/03/2017 11/17/2018 Encounters Date Type Department Care Team Description 05/31/2024 Telephone [facility] - Neurology - Delmis Hernandes Avceasar [address] [place] [address] Tim Pennington MD from Last 3 Months Immunizations Immunization Administration Dates Next Due COVID-19, MRNA, LNP-S, BIVAL ENT , PFIZER, 30 MCG/0.3 ML (12+ Y/O) 03/19/2022,03/18/2022 Covid-19, Mrna, Lnp-s, Pf, 3 0 Mcg/0.3 Ml Dose (Pfizer) 06/10/2020,05/20/2020 Influenza Vaccine 03/31/2013 Influenza Vaccine greater than 3 yrs 02/06/2023, 03/19/2022 Influenza Vaccine, Quadrivalent, PF 11/30,12/10/2017,01/12/2014,2011,07/14/2011,01/08/2011,04/13/2009,1 04/14/2008 Influenza Vaccine,unspecifie d Formulation 12/31/2011,01/08/2011 Influenza, High-dose, Quadrivalent 03/18/2022, Influenza, high-dose, trivalent, PF 08/2020,12/25/2019,02/22/2019,2016,12/25/2015,03/16/2015 Novel [id number], Injectable 04/13/2009 PUR FLU HIGH DOSE (FLUZONE) 12/25/2015 PUR PCV-13 12/21/2014 PUR PCV-13 (BH $0.00) 04/19/2015 Pneumococcal Vaccine - 13 Valent 04/19/2015,11/30 Pneumococcal Vaccine Adult - 23 Valent 12/29/2012 TDAP Vaccine 04/14/2022 Family History Medical History Relation Name Comments Other-comment Father 82 No Known Problems Mother 82 Breast Cancer Neg Hx Ovarian Cancer Neg Hx Relation Name Status Comments Brother Alive Father 82 Mother 82 Sister Alive Social History Tobacco Use Types Packs/Day Years Used Date Smoking Tobacco: Never Smokeless Tobacco: Never Tobacco Cessation:Counseling Given: Not Answered Alcohol Use Standard Drinks/Week Comments Yes 0 [...] on file 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 Gender Identity Not on file Sexual Orientation Not on file Last Filed Vital Signs Vital Sign Reading Time Taken Comments Blood Pressure 142/91 09/22/2023 4:07 PM CDT Pulse 101 09/22/2023 4:07 PM CDT Temperature 36.7 C (98.1 F) 02/10/2023 11:27 AM BUFFER MACHINE Respiratory Rate 16 02/10/2023 11:27 AM BUFFER MACHINE Oxygen Saturation 100% 02/10/2023 11:27 AM BUFFER MACHINE Inhaled Oxygen Concentration - - Weight 59 kg (130 lb) 09/22/2023 4:07 PM CDT Height 152.4 cm (5') 09/22/2023 4:07 PM CDT Body Mass Index 25.39 09/22/2023 4:07 PM CDT Plan of Treatment Health Maintenance Due Date Last Done Comments Hepatitis C Virus (HCV) Screening 1944 Zoster Immunization (1 of 2) 1994 Respiratory Syncytial Virus (RSV) Immunization (Adult) (1 - 1-dose 75+ series) 2019 DEXA Bone Density 11/29/2022 11/29/2020, , 04/05/2011 Influenza Immunization (#1) 2023 11/0 11/2022, 03/19/2022, 03/18/2022, Additional history exists SARS-COV-2 Immunization ( season) 2023 03/19/2022, 03/18/2022, 01/03/2021, Additional history exists Td Immunization Every 10 Years (Adults With 1 Tdap) 04/14/2032 04/14/2022 Colonoscopy High Risk Discontinued 04/29/2007 Colonoscopy Discontinued 04/29/2007, 05/01/2006 Pneumococcal Immunization (50+ years) Completed 04/19/2015, 12/21/2014, 12/21/2014, Additional history exists Pneumococcal Immunization Combined Discontinued 04/19/2015, 12/21/2014, 12/21/2014, Additional history exists Immunochemical Fecal Occult Blood Discontinued 01/08/2019, 08/27/2017 Cologuard Discontinued Colorectal Cancer Screening Discontinued Hepatitis B Immunization Aged Out No longer eligible based on patient's age to complete this topic Meningococcal Immunization (ACWY) Aged Out No longer eligible based on patient's age to complete this topic Rotavirus Immunization Aged Out No lo nger eligible based on patient's age to complete this topic Goals Goal Patient Goal Type Associated Problems Recent Progress Patient-Stated? Author I'd like to bend over with a pain score of 7 or below Pain Management Jeannette Leiva RN Note: Goal Reviewed with: patient Readiness to change: Ready to change Department associated with goal: [facility] Steps to achieve goal: injetion Medical Devices Implanted Type Area Fixing Machine Operator Device Identifier Shelf Expiration Date Model / Serial / Lot Pinn Sector W/Gription 54mm - [id number] Implanted:Qty: 1 on 03/08/2013 by Dakota Julien MD at [facility] IMPLANT Left: Hip JNJ / [employer] [id number] / / [id number] Scr Acet Canc Pinn 6.5x25mm - [id number] Implanted:Qty: 1 on 03/08/2013 by Dakota Julien MD at [facility] IMPLANT Left: Hip JNJ / [employer] [id number] / / [id number] Scr Acet Canc Pinn 6.5x30mm - [id number] Implanted:Qty: 1 on 03/08/2013 by Dakota Julien MD at [facility] IMPLANT Left: Hip JNJ / [employer] [id number] / / [id number] Implant Hip Liner Lipped Polyethelene Be - [id number] Implanted:Qty: 1 on 03/08/2013 by Dakota Julien MD at [facility] IMPLANT Left: Hip JNJ / [employer] [id number] / / [id number] Corail2 Lat Coxa Vara Size 9 - [id number] Implanted:Qty: 1 on 03/08/2013 by Dakota Julien MD at [facility] IMPLANT Left: Hip JNJ / [employer] [id number] / / [id number] Head Fem 03/13 Artc Ez M 36mm +1.5mm - [id number] Implanted:Qty: 1 on 03/08/2013 by Dakota Julien MD at [facility] IMPLANT JNJ / [employer] [id number] / / [id number] Stem Fem 140mm 10mm Collar Cementless Loprfl Neck Vertical Groove Corail Articul/Tristian Ti Marin 125d 46.5 - [id number] Implanted:Qty: 1 on 05/26/2017 by Dakota Julien MD at [facility] IMPLANT Right: Hip [employer] 12/29/2019 [id number] / / [id number] Head Fem 1.5mm 28mm Hip M Specification Metal Articul/Tristian 03/13 - [id number] Implanted:Qty: 1 on 05/26/2017 by Dakota Julien MD at [facility] IMPLANT Right: Hip [employer] 12/28/2021 [id number] / / [id number] Liner Actb [place] Neutral 48mm 28mm Altrx Hip - [id number] Implanted:Qty: 1 on 05/26/2017 by Dakota Julien MD at [facility] IMPLANT Right: Hip [employer] 12/29/2019 [id number] / / [id number] Eliminator Hole Duraloc [place] Hip [place] Positive Stop Hessel - [id number] Implanted:Qty: 1 on 05/26/2017 by Dakota Julien MD at [facility] IMPLANT Right: Hip [employer] 11/28/2026 [id number] / / [id number] Shell Actb 48mm Hip Porocoat [place] 100 Series - [id number] Implanted:Qty: 1 on 05/26/2017 by Dakota Julien MD at [facility] IMPLANT Right: Hip [employer] 02/27/2027 [id number] / / [id number] Procedures Procedure Name Priority Date/Time Associated Diagnosis Comments PARISH BONE DENSITOMETRY AXIAL SKELETON Routine 11/29/2020 9:25 AM CDT Menopause STOOL, OCCULT BLOOD IMMUNOASSAY (IFOB) Routine 01/08/2019 8:00 AM CDT Screen for colon cancer from Last 3 Months or Most Recently Relevant to Health Maintenance Results * PARISH BONE DENSITOMETRY AXIAL SKELETON (11/29/2020 9:25 AM CDT) Anatomical Region Laterality Modality BODY N/A Other 11/29/2020 9:25 AM CDT Impressions 11/29/2020 9:57 AM CDT IMPRESSION: Bone mineral density value is now in the range of osteopenia. A follow-up exam in 1-2 years can be used to assess any change. Narrative 11/29/2020 9:57 AM CDT EXAM: Bone Densitometry 11/29/2020 9:25 AM. CLINICAL HISTORY: Post menopausal female. TECHNIQUE: Bone mineral density was assessment using dual energy X-ray absorptiometry (DEXA). COMPARISON: DEXA exam dated 02/20/2016. FINDINGS: Lumbar Spine The average bone mineral density of the lumbar spine (L1-L3) was measured to be 1.029 gms/cm2. The T-score is 0.1. Compared to the prior exam, there has been a statistically significant 11.9 % increase in bone mineral density. Right forearm The average bone mineral density of the distal third right radius and ulna was measured to be 0.564 gms/cm2. The T-score is -2.2. There are no comparison data for the left forearm. Procedure Note Niko Lopez MD - 11/29/2020 EXAM: Bone Densitometry 11/29/2020 9:25 AM. CLINICAL HISTORY: Post menopausal female. TECHNIQUE: Bone mineral density was assessment using dual energy X- rayabsorptiometry (DEXA). COMPARISON: DEXA exam dated 02/20/2016. FINDINGS: Lumbar Spine The average bone mineral density of the lumbar spine (L1-L3) was measuredto be 1.029 gms/cm2. The T-score is 0.1. Compared to the prior exam,there has been a statistically significant 11.9 % increase in bone mineraldensity. Right forearm The average bone mineral density of the distal third right radius and ulnawas measured to be 0.564 gms/cm2. The T-score is -2.2. There are nocomparison data for the left forearm. IMPRESSION: Bone mineral density value is now in the range of osteopenia. A follow-up exam in 1-2 years can be used to assess any change. Radha Barth Latonya DO IMG DEXA ORDERABLE S Final Result * STOOL, OCCULT BLOOD IMMUNOASSAY (IFOB) (01/08/2019 8:00 AM CDT) OCCULT BLOOD - IFOB Negative Negative 01/08/2019 10:14 AM CDT [facility] Specimen of unknown material (specimen) STOOL SPECIMEN / Unknown Non-Phlebotomy Collection / Unknown 01/08/2019 8:00 AM CDT 01/08/2019 8:50 AM CDT Sabrina Vazquez MD BODY FLUIDS & STOOLS ORDERAB LES Final Result [facility] [address] [place] [address], from Last 3 Months or Most Recently Relevant to Health Maintenance Insurance MEDICARE C [place] MEDICARE C [employer] Advance Directives * Full Code (Latest Code Status on File) Date Activated Date Inactivated Comments 06/03/2017 8:36 PM 06/11/2017 2:55 PM CPR-Full Karen tment: FULL ARREST: Attempt Resuscitation/CPR wit intubation and mechanical ventilation. PRE-ARREST: Use entire range of life support measures to stabilize the patient. * Full Code Date Activated Date Inactivated Comments 03/29/2013 4:51 PM 05/26/2017 5:23 AM * Full Code Date Activated Date Inactivated Comments 03/08/2013 11:52 AM 03/12/2013 2:27 PM Care Teams Water Plant Maintenance Mechanic Relationship Specialty Start Date End Date Radha Hanks DO [address] [place] [address] PCP - General Family Medicine 01/08/20 Sudhir Back MD Consulting Physician Neurological Surgery 02/10/13
[2024-07-08 22:27] LABS: Magnesium 1.8 mg/dL (1.6-2.3)
[2024-07-08] MEDS: MECLIZINE HCL 25 MG TABLET PO (22:33)
[2024-07-08 23:02] LABS: Lactic Acid Reflex 0.7 mmol/L (0.7-2.0)
[2024-07-08 23:27] LABS: Add Urine Microscopic? YES; Appearance Urine Clear (Clear); Bacteria Urine None Seen /hpf; Bilirubin Urine Negative (Negative); Blood Urine Trace (Negative); Color Urine Yellow (Yellow); Glucose Urine UA Negative (Negative); Ketones Urine 1+ mg/dL (Negative); Leukocyte Esterase Ur Negative LEU/UL (Negative); Need Manual Microscopic Reviewed; Nitrate Urine Negative (Negative); Non Pathogenic Casts 0-2; Protein Urine Trace mg/dL (Negative); Specific Grav Ur 1.018 (1.001-1.035); Squamous Epithelial Cell Urine None Seen /hpf (Few); WBC Urine 0-5 /hpf (0-3); pH Urine 5.5 (5.0-9.0)
[2024-07-08 23:48] LABS: Troponin I < 0.012 ng/mL (0.000-0.034)
[2024-07-09] VITALS (27 sets, daily range): BP systolic 124–159; BP diastolic 58–112; PULSE 76–98; RESP 14–19; TEMP 36.5–37; O2SAT 93–100; BMI 22.8
--- NOTE | 2024-07-09 | PC.NURSE ---
Tech walked pt to bathroom. Pt denied any dizziness until pt sat up from supine position.
--- NOTE | 2024-07-09 00:01 | ED.GENADULT ---
HPI - General Adult General Chief complaint: Dizziness Stated complaint: FALL, DIZZY Time Seen by Provider: 07/08/24 21:37 History of Present Illness HPI narrative: Patient is a 79-year-old female who presents emergency department with chief complaint of ground level fall status post being dizzy. The patient reports she has chronic vertigo and reports that he today she bent over and then felt as though the room was spinning and fell to the ground the patient reports she has pain in her right wrist and reports he also had right foot pain and left ankle pain. Patient also reports she has had multiple other falls in her hips have been hurting her as well Related Data Home Medications ?Medication ?Instructions ?Recorded ?Confirmed ?Last Taken ?Type pantoprazole 40 mg tablet,delayed 40 mg PO Q12H 07/09/24 07/09/24 Unknown History release venlafaxine 150 mg 150 mg PO QPM 07/09/24 07/09/24 Unknown History capsule,extended release 24 hr venlafaxine 75 mg capsule,extended 75 mg PO QPM 07/09/24 07/09/24 Unknown History release 24 hr Allergies Allergy/AdvReac Type Severity Reaction Status Date / Time No Known Allergies Allergy Verified 07/08/24 21:34 Review of Systems Review of Systems: A 10 system review of systems was completed on the patient and is negative except for what is stated in the HPI. Nursing and ancillary documentation was reviewed. Course Vital Signs Vital signs: Vital Signs Pulse Rate 98 07/08/24 21:20 Respiratory Rate 16 07/08/24 21:20 Pulse Oximetry 100 07/08/24 21:20 Temperature 36.5 C 07/08/24 21:22 Pulse Rate 88 07/09/24 01:01 Respiratory Rate 14 07/09/24 01:01 Blood Pressure 135/82 07/09/24 01:01 Pulse Oximetry 95 07/09/24 00:31 Oxygen Delivery Room Air 07/08/24 21:22 Medical Decision Making [facility] Narrative Medical decision making narrative: Differential diagnosis includes fracture, intracranial hemorrhage, cervical spine fracture, Patient was given Antivert in the emergency depart CT head showed no acute abnormality Plain film x-rays of right wrist showed evidence of a possible ulnar styloid fracture. The patient will be placed in ulnar gutter Given the patient has had multiple falls with greater than 5 in the last month the case was discussed with the hospitalist for admission for observation Vital Signs Vital Signs: Vital Signs Pulse Rate 98 07/08/24 21:20 Respiratory Rate 16 07/08/24 21:20 Pulse Oximetry 100 07/08/24 21:20 Temperature 36.5 C 07/08/24 21:22 Pulse Rate 88 07/09/24 01:01 Respiratory Rate 14 07/09/24 01:01 Blood Pressure 135/82 07/09/24 01:01 Pulse Oximetry 95 07/09/24 00:31 Oxygen Delivery Room Air 07/08/24 21:22 Lab Data 07/08/24 21:37 07/08/24 21:37 Labs: Lab Results 07/08/24 07/08/24 Range/Units 21:37 22:43 WBC 6.5 (4.5-10.0) K/mm3 RBC 3.68 L (4.2-5.4) M/mm3 Hgb 10.8 L (12.0-15.0) g/dL Hct 33.9 L (37.0-47.0) % MCV 92.1 (80-100) fl MCH 29.3 (26-34) pg MCHC 31.9 L (32-36) g/dl RDW 14.6 H (11.5-14.5) % Plt Count 327 (150-375) k/mm3 MPV 9.8 (7.4-10.4) fl Immature Gran % (Auto) 0.3 (0-0.5) % Neut % (Auto) 76.0 H (45.5-73.1) % Lymph % (Auto) 12.3 L (18.3-44.2) % [place] % (Auto) 10.0 H (2.6-8.5) % Eos % (Auto) 1.1 (0-4.4) % Baso % (Auto) 0.3 (0.2-1.2) % Lymph # (Auto) 0.80 L (0.9-3.2) K/mm3 [place] # (Auto) 0.7 H (0.1-0.6) K/mm3 Eos # (Auto) 0.1 (0-0.3) K/mm3 Baso # (Auto) 0.0 (0.0-0.1) K/mm3 Abs Immat Gran (auto) 0.02 (0.00-0.031) K/mm3 Absolute Neuts (auto) 4.9 (1.3-6.7) K/mm3 Absolute Nucleated RBC 0.000 (0.0-0.012) K/mm3 Nucleated RBC % 0.0 (0.0-0.2) % Sodium 129 L (137-145) mmol/L Potassium 4.4 (3.4-5.0) mmol/L Chloride 97 L (98-107) mmol/L Carbon Dioxide 22 (22-30) mmol/L Anion Gap 10 (4-12) mmol/L BUN 18 H (7-17) mg/dL Creatinine 0.69 L (0.7-1.0) mg/dL Estim Creat Clear Calc 44 ml/min Estimated GFR > 60 (59 - ) Glucose 117 H (65-110) mg/dL Lactic Acid 0.7 (0.7-2.0) mmol/L Calcium 8.6 (8.4-10.2) mg/dL Magnesium 1.8 (1.6-2.3) mg/dL Total Bilirubin 0.6 (0.2-1.3) mg/dL AST 23 (14-36) U/L ALT 14 (6-35) U/L Alkaline Phosphatase 79 (38-126) U/L Troponin I < 0.012 (0.000-0.034) ng/mL Total Protein 7.0 (6.3-8.2) g/dL Albumin 4.1 (3.5-5.1) g/dL Urine Color Yellow (Yellow) Urine Appearance Clear (Clear) Urine pH 5.5 (5.0-9.0) Ur Specific [place] 1.018 (1.001-1.035) Urine Protein Trace (Negative) mg/dL Urine Glucose (UA) Negative (Negative) mg/dL Urine Ketones 1+ H (Negative) mg/dL Ur Blood (Man) Trace (Negative) Urine Nitrate Negative (Negative) Urine Bilirubin Negative (Negative) Urine Urobilinogen 1.0 (<2.0) mg/dL Add Ur Microanalysis Reviewed Leukocyte Esterase Rfl Negative (Negative) ZULAY/UL Urine RBC 3-5 H (0-2) /hpf Urine WBC 0-5 (0-3) /hpf Ur Squamous Epith Cells None seen (Few) /hpf Urine Bacteria None seen /hpf Urine Casts 0-2 Discharge Plan Discharge Clinical Impression: Vertigo, Frequent falls, Fracture of ulnar styloid Patient Disposition: Still a Patient Condition: Stable Patient Language: German Prescriptions: No Action venlafaxine 75 mg capsule,extended release 24hr 75 mg PO QPM venlafaxine 150 mg capsule,extended release 24hr 150 mg PO QPM pantoprazole 40 mg tablet,delayed release (DR/EC) 40 mg PO Q12H Follow-up/Referrals: Teetee,Ruddy Davis MD [Primary Care Provider] - Time of Disposition: 00:37
--- NOTE | 2024-07-09 02:35 | ADMGEN ---
This patient, Stella Antunez, was admitted to Medical Room 252-01. Patient/family oriented to hospital policies and general routines including ID bracelet, bed and alarms, visiting hours, pain management, procedures, bathroom and other care routines, personal items, smoking policy, room service/diet, and visiting hours. Information on how to activate the Rapid Response Team has been discussed. Patient/Family are encouraged to report perceived risks to care and to ask questions if they do not understand what they are told or what they should do.
--- NOTE | 2024-07-09 06:20 | PM.IMHP ---
H&P: HPI History of Present Illness Date/Time: 07/09/24 06:20 Chief Complaint: 1. Dizziness 2. Fall 3. left wrist pain/swelling Narrative: Stella Antunez is an 79-year-old female with medical history significant for glaucoma, vertigo, GERD, depression She resides alone and per son at the bedside, hours prior to admission via the ER she was not reachable after multiple calls, he performed a wellness check and found her on the floor, conscious and fatigued. She states that she while navigating the home developed overwhelming dizziness she suffered a fall as a result of the complications, and laid on the floor because she could not get up. By someone bedside she has been suffering multiple falls which 1 of the previous episodes leading to a right wrist pain/swelling She does not smoke/chew tobacco or consume recreational seizure drugs; however attest to consuming wine with 7-up on most nights of the week Work-up findings: UA: Unremarkable WBC 6.5, HGB 10.8, MCV 92, PLT 327 Na 139, K 4.4, Cl 97, CO2 22, EKG 10, BUN 18, CR 0.69, GFR 44 Mg 1.8; Unremarkable liver chemistries CT thoracic spine: T6 compression fracture, likely acute to subacute. CT Cervical spine: No fracture or subluxation of the cervical spine. CT head: No acute intracranial findings. XR Hip/Pelvis: No acute osseous abnormality of the bilateral hips and pelvis. Postoperative changes in the hips and the spine. XR right foot: No acute osseous abnormality of the right foot. XR right ankle: No acute osseous abnormality of the right ankle. XR right wrist: Possible fracture in the distal ulna CXR: Unremarkable Head CT: Unremarkable Stella Antunez will be admitted, evaluated and managed for physical deconditioning with recurrent falls and vertigo Review of Systems Review of Systems: All systems reviewed & are unremarkable except as noted in HPI and below [facility] Family History Family History (Updated 07/09/24 @ 02:59 by Cary Jones RN) Mother Alzheimer dementia Social History Social History Smoking status: Never smoker Alcohol intake: current Drinks per week: 5 Substance use: never Substance use type: does not use Do You Feel Safe in your Home?: Yes Lack of Transportation: No Lack of Food: Never True Current Housing: I Have Housing Concerned About Future Housing: No Difficulty Paying Gas/Electric Bills: No Difficulty Paying for Meds: No Currently Unemployed: No Education: High School Diploma/GED Difficulty w/ Childcare or Family Care: No Spiritual care concerns: No Meds Home Medications and Allergies Home Medications ?Medication ?Instructions ?Recorded ?Confirmed ?Type dorzolamide 2 % eye drops 1 drp RIGHT EYE DAILY 07/09/24 07/09/24 History latanoprost 0.005 % eye drops 1 drp RIGHT EYE BID 07/09/24 07/09/24 History pantoprazole 40 mg tablet,delayed 40 mg PO Q12H 07/09/24 07/09/24 History release venlafaxine 150 mg 150 mg PO QPM 07/09/24 07/09/24 History capsule,extended release 24 hr Allergies Allergy/AdvReac Type Severity Reaction Status Date / Time No Known Allergies Allergy Verified 07/08/24 21:34 Vital Signs Vital Signs - 24 hr 07/08/24 21:20 07/08/24 21:22 07/08/24 21:28 Temperature 97.7 F Pulse Rate 98 94 92 Respiratory Rate 16 17 Blood Pressure Pulse Oximetry 100 94 Oxygen Delivery Room Air 07/08/24 21:29 07/08/24 21:30 07/08/24 21:35 Temperature Pulse Rate 96 96 93 Respiratory Rate 17 17 15 Blood Pressure 153/89 H 151/95 H Pulse Oximetry 96 Oxygen Delivery 07/08/24 21:46 07/08/24 22:33 07/08/24 22:37 Temperature Pulse Rate 94 87 90 Respiratory Rate 17 16 14 Blood Pressure 144/94 H 158/95 H Pulse Oximetry 98 99 100 Oxygen Delivery 07/08/24 22:45 07/08/24 22:46 07/08/24 22:50 Temperature Pulse Rate 83 88 88 Respiratory Rate 18 16 17 Blood Pressure 153/95 H 153/95 H Pulse Oximetry 100 100 Oxygen Delivery 07/08/24 23:00 07/08/24 23:01 07/08/24 23:15 Temperature Pulse Rate 87 92 85 Respiratory Rate 16 15 18 Blood Pressure 144/89 H Pulse Oximetry 97 97 100 Oxygen Delivery 07/08/24 23:17 07/08/24 23:29 07/08/24 23:29 Temperature Pulse Rate 89 85 89 Respiratory Rate 20 Blood Pressure 146/85 H 143/82 H 146/85 H Pulse Oximetry 100 Oxygen Delivery 07/08/24 23:30 07/08/24 23:30 07/09/24 00:01 Temperature Pulse Rate 106 H 83 91 Respiratory Rate 15 19 Blood Pressure 151/110 H Pulse Oximetry 98 98 Oxygen Delivery 07/09/24 00:02 07/09/24 00:15 07/09/24 00:16 Temperature Pulse Rate 92 82 87 Respiratory Rate 16 18 17 Blood Pressure 134/97 H 139/80 Pulse Oximetry 100 98 97 Oxygen Delivery 07/09/24 00:30 07/09/24 00:31 07/09/24 00:45 Temperature Pulse Rate 82 86 86 Respiratory Rate 16 17 19 Blood Pressure 142/80 H Pulse Oximetry 98 95 Oxygen Delivery 07/09/24 01:00 07/09/24 01:01 07/09/24 01:02 Temperature Pulse Rate 85 88 84 Respiratory Rate 15 14 15 Blood Pressure 135/82 Pulse Oximetry Oxygen Delivery 07/09/24 01:15 07/09/24 01:16 07/09/24 01:26 Temperature Pulse Rate 82 87 86 Respiratory Rate 15 16 19 Blood Pressure 138/112 H 124/77 Pulse Oximetry 99 Oxygen Delivery 07/09/24 01:30 07/09/24 01:31 07/09/24 01:45 Temperature Pulse Rate 86 86 85 Respiratory Rate 16 16 18 Blood Pressure 137/83 Pulse Oximetry 100 97 100 Oxygen Delivery 07/09/24 02:02 07/09/24 02:15 07/09/24 02:24 Temperature 97.7 F Pulse Rate 87 90 76 Respiratory Rate 15 16 Blood Pressure 137/83 Pulse Oximetry 98 98 Oxygen Delivery 07/09/24 02:24 07/09/24 05:35 Temperature 98.6 F 97.8 F Pulse Rate 87 86 Respiratory Rate 18 17 Blood Pressure 146/82 H 134/81 Pulse Oximetry 100 98 Oxygen Delivery Exam Const: General: comfortable HENMT: Ears: TM's normal bilaterally Face/Nose/Sinus: Normal nares present Eyes: General: appearance normal, both eyes and all related structures Pupils: Equal, round and reactive pupils present Neck: Neck: supple Thyroid: thyroid normal Resp: Effort & Inspection: normal respiratory effort Cardio: Rate: regular rate Rhythm: regular rhythm GI: GI Palp: Yes Soft to palpation Auscultation: normal bowel sounds Skin: General skin exam: normal color Neuro: Speech: normal speech Motor exam (neuro): Abnormal motor strength present Extrem: General: normal to inspection Psych: Mental Status: mental status grossly normal Affect: Anxious affect present H&P: Results Labs Labs: Short CBC 07/08/24 Range/Units 21:37 WBC 6.5 (4.5-10.0) K/mm3 Hgb 10.8 L (12.0-15.0) g/dL Hct 33.9 L (37.0-47.0) % Plt Count 327 (150-375) k/mm3 BMP 07/08/24 21:37 Sodium 129 L Potassium 4.4 Chloride 97 L Carbon Dioxide 22 BUN 18 H Creatinine 0.69 L Glucose 117 H Calcium 8.6 Cardiac Enzymes 07/08/24 Range/Units 21:37 Troponin I < 0.012 (0.000-0.034) ng/mL Liver Function 07/08/24 Range/Units 21:37 Total Bilirubin 0.6 (0.2-1.3) mg/dL AST 23 (14-36) U/L ALT 14 (6-35) U/L Alkaline Phosphatase 79 (38-126) U/L Albumin 4.1 (3.5-5.1) g/dL Urine 07/08/24 Range/Units 22:43 Urine Color Yellow (Yellow) Urine Appearance Clear (Clear) Urine pH 5.5 (5.0-9.0) Ur Specific [place] 1.018 (1.001-1.035) Urine Protein Trace (Negative) mg/dL Urine Glucose (UA) Negative (Negative) mg/dL Assessment and Plan Assessment and plan (1) Vertigo: Code(s): R42 - Dizziness and giddiness Status: Acute (2) Fracture of ulnar styloid: Code(s): S52.613A - Displaced fracture of unspecified ulna styloid process, initial encounter for closed fracture Status: Acute (3) Physical deconditioning: Code(s): R53.81 - Other malaise Status: Acute (4) Fall: Code(s): W19.XXXA - Unspecified fall, initial encounter Status: Acute Plan Acute and principal conditions 1. Physical deconditioning 2. Frequent falls 3. Left ulnar fracture 4. T6 thoracic spine fracture 5. Vertigo/Dizziness Rx: A. PT/OT eval and Rx B. Falls and safety precautions C. Meclizine d. MRI brain e. Orthopedic surgery consult Chronic and stable conditions 1. Vertigo 2. GERD. 3. Glaucoma 4. Recurrent depression Miscellaneous care 1. Code status. Full 2. Nutrition. Heart healthy 3. VTE prophylaxis. SCDs; [facility] Quality VTE Prophylaxis VTE prophylaxis: mechanical ordered and pharmacologic ordered Hospitalist MIPS Advance Care Plan I have confirmed that the patient's Advanced Care Plan is present, code status is documented, or surrogate decision maker is listed in patient medical record.: Yes Medication Reconciliation I have utilized all available resources to obtain, update and review the patients current medications (includes all prescriptions, OTC, herbals, cannabis, and nutritional supplements).: Yes The patient is not eligible for med reconciliation; the patient is in a emergent medical situation where delaying treatment would jeopardize the patients health.: Yes
[2024-07-09 07:02] LABS: Cholesterol 156 mg/dL (0-200); HDL Direct 53 mg/dL; Triglycerides 52 mg/dL (<150)
[2024-07-09 07:13] LABS: LDL Cholesterol Direct 82 mg/dL
[2024-07-09 08:26] LABS: Hemoglobin A1C 5.2 % (<5.7)
[2024-07-09] MEDS: HEPARIN SODIUM 5,000 UNITS/ML VIAL 5000 UNITS SUB-Q ×2 (09:00→20:23)
[2024-07-09] MEDS: ACETAMINOPHEN 325 MG TABLET 650 MG PO ×2 (09:00→22:59)
--- NOTE | 2024-07-09 09:25 | PM.IMPN ---
Progress Note: A&P Assessment and Plan (1) Vertigo: Code(s): R42 - Dizziness and giddiness Status: Acute (2) Fracture of ulnar styloid: Code(s): S52.613A - Displaced fracture of unspecified ulna styloid process, initial encounter for closed fracture Status: Acute (3) Physical deconditioning: Code(s): R53.81 - Other malaise Status: Acute (4) Fall: Code(s): W19.XXXA - Unspecified fall, initial encounter Status: Acute Plan Acute and principal conditions 1. Physical deconditioning 2. Frequent falls 3. Left ulnar fracture 4. T6 thoracic spine fracture 5. Vertigo/Dizziness Rx: A. PT/OT eval B. Falls and safety precautions C. Meclizine prn d. MRI brain-pending e. Orthopedic surgery consult: Patient may remove a soft splint when at wrist splint is available. Ice, elevate. Pain control. Monitor neurovascular status. Splint may be removed for bathing and hand hygiene. PT and OT with protected weight-bearing of the right upper extremity. May follow-up in the outpatient orthopedic clinic in 6 weeks for re-evaluation. Chronic and stable conditions 1. Vertigo 2. GERD- restart home med 3. Glaucoma-restart home eye drops 4. Recurrent depression-restartt home meds Miscellaneous care 1. Code status. Full 2. Nutrition. Heart healthy 3. VTE prophylaxis. SCDs; JANE Time Spent With Patient Time with patient: 25 - 35 minutes Subjective Date/time seen: 07/09/24 09:25 Interval history: Stella Antunez is an 79-year-old female with medical history significant for glaucoma, vertigo, GERD, depression admitted for physical deconditioning with recurrent falls and vertigo. UA: Unremarkable WBC 6.5, HGB 10.8, MCV 92, PLT 327 Na 139, K 4.4, Cl 97, CO2 22, EKG 10, BUN 18, CR 0.69, GFR 44 Mg 1.8; liver unremarkable CT thoracic spine: T6 compression fracture, likely acute to subacute. CT Cervical spine: No fracture or subluxation of the cervical spine. CT head: No acute intracranial findings. XR Hip/Pelvis: No acute osseous abnormality of the bilateral hips and pelvis. Postoperative changes in the hips and the spine. XR right foot: No acute osseous abnormality of the right foot. XR right ankle: No acute osseous abnormality of the right ankle. XR right wrist: Possible fracture in the distal ulna CXR: Unremarkable Head CT: Unremarkable Pt is seen and examined. home meds restarted. PT/OT ordered. Review of Systems Review of Systems: All systems reviewed & are unremarkable except as noted in HPI and below Exam Const: General: comfortable HENMT: Ears: TM's normal bilaterally Face/Nose/Sinus: Normal nares present Eyes: General: appearance normal, both eyes and all related structures Pupils: Equal, round and reactive pupils present Neck: Neck: supple Thyroid: thyroid normal Resp: Effort & Inspection: normal respiratory effort Cardio: Rate: regular rate Rhythm: regular rhythm GI: Auscultation: normal bowel sounds Skin: General skin exam: normal color Neuro: Cranial nerves: Yes Equal, round and reactive pupils present Speech: normal speech Motor exam (neuro): Abnormal motor strength present Extrem: General: normal to inspection Psych: Mental Status: mental status grossly normal Affect: Anxious affect present Objective Data Vital Signs Vital Signs: Vital Signs - 24 hr 07/08/24 21:20 07/08/24 21:22 07/08/24 21:28 Temperature 97.7 F Pulse Rate 98 94 92 Respiratory Rate 16 17 Blood Pressure Pulse Oximetry 100 94 Oxygen Delivery Room Air 07/08/24 21:29 07/08/24 21:30 07/08/24 21:35 Temperature Pulse Rate 96 96 93 Respiratory Rate 17 17 15 Blood Pressure 153/89 H 151/95 H Pulse Oximetry 96 Oxygen Delivery 07/08/24 21:46 07/08/24 22:33 07/08/24 22:37 Temperature Pulse Rate 94 87 90 Respiratory Rate 17 16 14 Blood Pressure 144/94 H 158/95 H Pulse Oximetry 98 99 100 Oxygen Delivery 07/08/24 22:45 07/08/24 22:46 07/08/24 22:50 Temperature Pulse Rate 83 88 88 Respiratory Rate 18 16 17 Blood Pressure 153/95 H 153/95 H Pulse Oximetry 100 100 Oxygen Delivery 07/08/24 23:00 07/08/24 23:01 07/08/24 23:15 Temperature Pulse Rate 87 92 85 Respiratory Rate 16 15 18 Blood Pressure 144/89 H Pulse Oximetry 97 97 100 Oxygen Delivery 07/08/24 23:17 07/08/24 23:29 07/08/24 23:29 Temperature Pulse Rate 89 85 89 Respiratory Rate 20 Blood Pressure 146/85 H 143/82 H 146/85 H Pulse Oximetry 100 Oxygen Delivery 07/08/24 23:30 07/08/24 23:30 07/09/24 00:01 Temperature Pulse Rate 106 H 83 91 Respiratory Rate 15 19 Blood Pressure 151/110 H Pulse Oximetry 98 98 Oxygen Delivery 07/09/24 00:02 07/09/24 00:15 07/09/24 00:16 Temperature Pulse Rate 92 82 87 Respiratory Rate 16 18 17 Blood Pressure 134/97 H 139/80 Pulse Oximetry 100 98 97 Oxygen Delivery 07/09/24 00:30 07/09/24 00:31 07/09/24 00:45 Temperature Pulse Rate 82 86 86 Respiratory Rate 16 17 19 Blood Pressure 142/80 H Pulse Oximetry 98 95 Oxygen Delivery 07/09/24 01:00 07/09/24 01:01 07/09/24 01:02 Temperature Pulse Rate 85 88 84 Respiratory Rate 15 14 15 Blood Pressure 135/82 Pulse Oximetry Oxygen Delivery 07/09/24 01:15 07/09/24 01:16 07/09/24 01:26 Temperature Pulse Rate 82 87 86 Respiratory Rate 15 16 19 Blood Pressure 138/112 H 124/77 Pulse Oximetry 99 Oxygen Delivery 07/09/24 01:30 07/09/24 01:31 07/09/24 01:45 Temperature Pulse Rate 86 86 85 Respiratory Rate 16 16 18 Blood Pressure 137/83 Pulse Oximetry 100 97 100 Oxygen Delivery 07/09/24 02:02 07/09/24 02:15 07/09/24 02:24 Temperature 97.7 F Pulse Rate 87 90 76 Respiratory Rate 15 16 Blood Pressure 137/83 Pulse Oximetry 98 98 Oxygen Delivery 07/09/24 02:24 07/09/24 02:33 07/09/24 05:35 Temperature 98.6 F 97.8 F Pulse Rate 87 86 Respiratory Rate 18 17 Blood Pressure 146/82 H 134/81 Pulse Oximetry 100 98 Oxygen Delivery Room Air 07/09/24 08:00 07/09/24 09:06 Temperature 98.5 F Pulse Rate 88 Respiratory Rate 18 Blood Pressure 159/84 H Pulse Oximetry 97 Oxygen Delivery Room Air Intake/Output Intake/Output: Intake & Output 07/06/24 07/07/24 07/08/24 04/11/25 23:59 23:59 23:59 23:59 Intake Total 0 Output Total 100 Balance -100 0 Meds/Results Medications: Active Medications Generic Name Dose Route Start Last Admin Trade Name Sergioq PRN Reason Stop Dose Admin Acetaminophen 650 mg 07/09/24 01:32 07/09/24 09:00 Acetaminophen 325 Mg Tablet PO 650 mg Q4H PRN Administration Mild Pain (1-3) or Fever Heparin Sodium (Porcine) 5,000 units 07/09/24 09:00 07/09/24 09:00 Heparin Sodium 5,000 Units/Ml Vial SUB-Q 5,000 units Q12HR JANE Administration Melatonin 5 mg 07/09/24 06:19 Melatonin 5 Mg Tablet PO HS PRN Insomnia Radiology Results: ITS Impressions Chest X-Ray 07/08/24 22:28 IMPRESSION: No acute cardiopulmonary pathology. Wrist X-Ray 07/08/24 22:31 IMPRESSION: Possible fracture in the distal ulna. Clinical correlation advised Ankle X-Ray 07/08/24 22:33 IMPRESSION: No acute osseous abnormality of the right ankle. Foot X-Ray 07/08/24 22:34 IMPRESSION: No acute osseous abnormality of the right foot. Postoperative changes. Hip/Pelvis X-Ray 07/08/24 22:37 IMPRESSION: No acute osseous abnormality of the bilateral hips and pelvis. Postoperative changes in the hips and the spine. Head CT 07/08/24 22:43 IMPRESSION: No acute intracranial findings. Cervical Spine CT 07/09/24 05:37 Impression: No fracture or subluxation of the cervical spine. Degenerative change at the lower cervical spine, as above. Thoracic Spine CT 07/09/24 05:38 Impression: T6 compression fracture, likely acute to subacute. Degenerative changes, as above. Labs Labs: Laboratory Results - last 24 hr 07/08/24 07/08/24 07/09/24 21:37 22:43 06:39 WBC 6.5 RBC 3.68 L Hgb 10.8 L Hct 33.9 L MCV 92.1 MCH 29.3 MCHC 31.9 L RDW 14.6 H Plt Count 327 MPV 9.8 Immature Gran % (Auto) 0.3 Neut % (Auto) 76.0 H Lymph % (Auto) 12.3 L [place] % (Auto) 10.0 H Eos % (Auto) 1.1 Baso % (Auto) 0.3 Lymph # (Auto) 0.80 L [place] # (Auto) 0.7 H Eos # (Auto) 0.1 Baso # (Auto) 0.0 Abs Immat Gran (auto) 0.02 Absolute Neuts (auto) 4.9 Absolute Nucleated RBC 0.000 Nucleated RBC % 0.0 Sodium 129 L Potassium 4.4 Chloride 97 L Carbon Dioxide 22 Anion Gap 10 BUN 18 H Creatinine 0.69 L Estim Creat Clear Calc 44 Estimated GFR > 60 Glucose 117 H Hemoglobin A1c 5.2 Lactic Acid 0.7 Calcium 8.6 Magnesium 1.8 Total Bilirubin 0.6 AST 23 ALT 14 Alkaline Phosphatase 79 Troponin I < 0.012 Total Protein 7.0 Albumin 4.1 Triglycerides 52 Cholesterol 156 LDL Cholesterol Direct 82 HDL Direct 53 Urine Color Yellow Urine Appearance Clear Urine pH 5.5 Ur Specific [place] 1.018 Urine Protein Trace Urine Glucose (UA) Negative Urine Ketones 1+ H Ur Blood (Man) Trace Urine Nitrate Negative Urine Bilirubin Negative Urine Urobilinogen 1.0 Add Ur Microanalysis Reviewed Leukocyte Esterase Rfl Negative Urine RBC 3-5 H Urine WBC 0-5 Ur Squamous Epith Cells None seen Urine Bacteria None seen Urine Casts 0-2 Quality VTE Prophylaxis VTE prophylaxis: mechanical ordered and pharmacologic ordered
[2024-07-09] MEDS: PANTOPRAZOLE 40 MG TABLET PO ×2 (10:14→20:23)
--- NOTE | 2024-07-09 14:06 | P.CONOP_ITS ---
Assessment and Plan Assessment and plan (1) Ulna fracture: Qualifiers: Encounter type: initial encounter Ulna location: proximal ulna F racture type: closed Fracture morphology: other fracture Laterality: right Q ualified Code(s): S52.091A - Other fracture of upper end of right ulna, initial encounter for closed fracture Code(s): S52.209A - Unspecified fracture of shaft of unspecified ulna, initial encounter for closed fracture Status: Acute Assessment and Plan: History, exam and radiographs reviewed with the patient and family. Radiographs of the right wrist reveal an old fracture of the ulnar spinous process and possibility of fracture in the distal ulna. 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 The fracture type and injury as well as radiographs discussed with the patient and family. Operative and nonoperative treatment options reviewed. Recommended non operative treatment. Risk of nonunion, malunion or late displacement discussed. Stiffness, pain and possible dysfunction of the joint discussed. Fracture precautions and activity restrictions reviewed. The patient verbalizes understanding. Patient may remove a soft splint when at wrist splint is available. Ice, elevate. Pain control. Monitor neurovascular status. Splint may be removed for bathing and hand hygiene. PT and OT with protected weight-bearing of the right upper extremity. May follow-up in the outpatient orthopedic clinic in 6 weeks for re- evaluation. Plan Reviewed history, exam, radiographs and current labs with attending MD and covering surgeon, Dr. Lock, who agrees with current plan as indicated above. No further recommendations from Dr. Lock at this time. History of Present Illness HPI Consult date: 07/09/24 Chief complaint: Frequent falls, Vertigo, Ulnar styloid fracture Narrative: Orthopedic consult for this 79-year-old female who was admitted with right wrist pain after a fall at home with recurrent falls reported. An extensive workup in the emergency room. Radiographs of the right wrist did reveal a possible ulnar fracture. She was splinted and sent to the floor for further medical workup and orthopedic consult. Review of Systems 2 Review of Systems: All systems reviewed & are unremarkable except as noted in HPI and below PMFSH Past Medical History Medical History (Updated 07/09/24 @ 14:11 by DEE Louis) Ulna fracture Family History Family History Mother Alzheimer dementia Social History Social History Smoking status: Never smoker Alcohol intake: current Drinks per week: 5 Substance use: never Substance use type: does not use Do You Feel Safe in your Home?: Yes Lack of Transportation: No Lack of Food: Never True Current Housing: I Have Housing Concerned About Future Housing: No Difficulty Paying Gas/Electric Bills: No Difficulty Paying for Meds: No Currently Unemployed: No Education: High School Diploma/GED Difficulty w/ Childcare or Family Care: No Spiritual care concerns: No Meds Home Medications and Allergies Home Medications ?Medication ?Instructions ?Recorded ?Confirmed ?Type dorzolamide 2 % eye drops 1 drp RIGHT EYE DAILY 07/09/24 07/09/24 History latanoprost 0.005 % eye drops 1 drp RIGHT EYE BID 07/09/24 07/09/24 History pantoprazole 40 mg tablet,delayed 40 mg PO Q12H 07/09/24 07/09/24 History release venlafaxine 150 mg 150 mg PO QPM 07/09/24 07/09/24 History capsule,extended release 24 hr Allergies Allergy/AdvReac Type Severity Reaction Status Date / Time No Known Allergies Allergy Verified 07/08/24 21:34 Vital Signs Vital Signs - 24 hr 07/08/24 21:20 07/08/24 21:22 07/08/24 21:28 Temperature 36.5 C Pulse Rate 98 94 92 Respiratory Rate 16 17 Blood Pressure Pulse Oximetry 100 94 Oxygen Delivery Room Air 07/08/24 21:29 07/08/24 21:30 07/08/24 21:35 Temperature Pulse Rate 96 96 93 Respiratory Rate 17 17 15 Blood Pressure 153/89 H 151/95 H Pulse Oximetry 96 Oxygen Delivery 07/08/24 21:46 07/08/24 22:33 07/08/24 22:37 Temperature Pulse Rate 94 87 90 Respiratory Rate 17 16 14 Blood Pressure 144/94 H 158/95 H Pulse Oximetry 98 99 100 Oxygen Delivery 07/08/24 22:45 07/08/24 22:46 07/08/24 22:50 Temperature Pulse Rate 83 88 88 Respiratory Rate 18 16 17 Blood Pressure 153/95 H 153/95 H Pulse Oximetry 100 100 Oxygen Delivery 07/08/24 23:00 07/08/24 23:01 07/08/24 23:15 Temperature Pulse Rate 87 92 85 Respiratory Rate 16 15 18 Blood Pressure 144/89 H Pulse Oximetry 97 97 100 Oxygen Delivery 07/08/24 23:17 07/08/24 23:29 07/08/24 23:29 Temperature Pulse Rate 89 85 89 Respiratory Rate 20 Blood Pressure 146/85 H 143/82 H 146/85 H Pulse Oximetry 100 Oxygen Delivery 07/08/24 23:30 07/08/24 23:30 07/09/24 00:01 Temperature Pulse Rate 106 H 83 91 Respiratory Rate 15 19 Blood Pressure 151/110 H Pulse Oximetry 98 98 Oxygen Delivery 07/09/24 00:02 07/09/24 00:15 07/09/24 00:16 Temperature Pulse Rate 92 82 87 Respiratory Rate 16 18 17 Blood Pressure 134/97 H 139/80 Pulse Oximetry 100 98 97 Oxygen Delivery 07/09/24 00:30 07/09/24 00:31 07/09/24 00:45 Temperature Pulse Rate 82 86 86 Respiratory Rate 16 17 19 Blood Pressure 142/80 H Pulse Oximetry 98 95 Oxygen Delivery 07/09/24 01:00 07/09/24 01:01 07/09/24 01:02 Temperature Pulse Rate 85 88 84 Respiratory Rate 15 14 15 Blood Pressure 135/82 Pulse Oximetry Oxygen Delivery 07/09/24 01:15 07/09/24 01:16 07/09/24 01:26 Temperature Pulse Rate 82 87 86 Respiratory Rate 15 16 19 Blood Pressure 138/112 H 124/77 Pulse Oximetry 99 Oxygen Delivery 07/09/24 01:30 07/09/24 01:31 07/09/24 01:45 Temperature Pulse Rate 86 86 85 Respiratory Rate 16 16 18 Blood Pressure 137/83 Pulse Oximetry 100 97 100 Oxygen Delivery 07/09/24 02:02 07/09/24 02:15 07/09/24 02:24 Temperature 36.5 C Pulse Rate 87 90 76 Respiratory Rate 15 16 Blood Pressure 137/83 Pulse Oximetry 98 98 Oxygen Delivery 07/09/24 02:24 07/09/24 02:33 07/09/24 05:35 Temperature 37.0 C 36.6 C Pulse Rate 87 86 Respiratory Rate 18 17 Blood Pressure 146/82 H 134/81 Pulse Oximetry 100 98 Oxygen Delivery Room Air 07/09/24 08:00 07/09/24 08:00 07/09/24 09:06 Temperature 36.9 C Pulse Rate 88 92 Respiratory Rate 18 Blood Pressure 159/84 H Pulse Oximetry 97 Oxygen Delivery Room Air 07/09/24 12:00 Temperature 36.5 C Pulse Rate 79 Respiratory Rate 18 Blood Pressure 139/81 Pulse Oximetry 97 Oxygen Delivery Exam 2 Const: General: comfortable and no acute distress HENMT: Mouth: Yes moist mucous membranes Eyes: General: appearance normal, both eyes and all related structures Neck: Neck: supple and no JVD Resp: Effort & Inspection: normal respiratory effort Cardio: Rate: regular rate Rhythm: regular rhythm GI: Inspection: non-distended GI Palp: Yes Soft to palpation and No Tenderness to palpation present (GI) Neuro: General: gait normal Cognition (Neuro): normal cognition Speech: normal speech Extrem: Right upper extremity: wrist ( splint in place, moves fingers, neurovascularly intact) normal to inspection, normal ROM and radial pulse present 2+; no tenderness, no swelling and no deformity and Extremity exam: right hand ( Splint in place, moves fingers, neurovascularly intact) normal to inspection, normal capillary refill, neurosensory exam normal, vascular exam radial pulse present and swelling Psych: Mental Status: mental status grossly normal Affect: normal affect Results Labs 07/08/24 21:37 07/08/24 21:37 Labs: Abnormal lab results 07/08/24 07/08/24 Range/Units 21:37 22:43 RBC 3.68 L (4.2-5.4) M/mm3 Hgb 10.8 L (12.0-15.0) g/dL Hct 33.9 L (37.0-47.0) % MCHC 31.9 L (32-36) g/dl RDW 14.6 H (11.5-14.5) % Neut % (Auto) 76.0 H (45.5-73.1) % Lymph % (Auto) 12.3 L (18.3-44.2) % [place] % (Auto) 10.0 H (2.6-8.5) % Lymph # (Auto) 0.80 L (0.9-3.2) K/mm3 [place] # (Auto) 0.7 H (0.1-0.6) K/mm3 Sodium 129 L (137-145) mmol/L Chloride 97 L (98-107) mmol/L BUN 18 H (7-17) mg/dL Creatinine 0.69 L (0.7-1.0) mg/dL Glucose 117 H (65-110) mg/dL Urine Ketones 1+ H (Negative) mg/dL Urine RBC 3-5 H (0-2) /hpf H & H 07/08/24 Range/Units 21:37 Hgb 10.8 L (12.0-15.0) g/dL Hct 33.9 L (37.0-47.0) % All other labs normal.
[2024-07-09] MEDS: VENLAFAXINE HCL XR 75 MG CAP.ER.24H 150 MG PO (17:39)
[2024-07-09] MEDS: LATANOPROST 0.005% OP SOLN 2.5 ML BTL 1 DROP RIGHT EYE (17:40)
[2024-07-09] MEDS: MELATONIN 5 MG TABLET PO (22:59)
[2024-07-10] VITALS (9 sets, daily range): BP systolic 128–140; BP diastolic 62–85; PULSE 67–94; RESP 16–18; TEMP 36.4–36.9; O2SAT 97–100
[2024-07-10 06:16] LABS: Basophils Percent Auto 0.6 % (0.2-1.2); Eosinophils Absolute Auto 0.2 K/mm3 (0-0.3); Eosinophils Percent Auto 4.4 % (0-4.4); Hematocrit 32.1 % (37.0-47.0); Hemoglobin 10.3 g/dL (12.0-15.0); Immature Granulocyte Absolute 0.01 K/mm3 (0.00-0.031); Immature Granulocyte Percent A 0.2 % (0-0.5); Lymphocytes Absolute Auto 2.18 K/mm3 (0.9-3.2); Lymphocytes Percent Auto 43.5 % (18.3-44.2); Mean Corpuscular HGB Conc 32.1 g/dl (32-36); Mean Corpuscular Hemoglobin 29.3 pg (26-34); Mean Corpuscular Volume 91.5 fl (80-100); Mean Platelet Volume 9.8 fl (7.4-10.4); Monocytes Absolute Auto 0.5 K/mm3 (0.1-0.6); Monocytes Percent Auto 10.4 % (2.6-8.5); Neutrophils Absolute Auto 2.1 K/mm3 (1.3-6.7); Neutrophils Percent Auto 40.9 % (45.5-73.1); Platelet Count Result 350 k/mm3 (150-375); Red Blood Count 3.51 M/mm3 (4.2-5.4); Red Cell Distribution Width 14.5 % (11.5-14.5)
[2024-07-10 06:32] LABS: Alanine Aminotransferase 12 U/L (6-35); Albumin Level 3.7 g/dL (3.5-5.1); Alkaline Phosphatase 72 U/L (38-126); Anion Gap 7 mmol/L (4-12); Aspartate Amino Transferase 21 U/L (14-36); Bilirubin,Total 0.5 mg/dL (0.2-1.3); Blood Urea Nitrogen 10 mg/dL (7-17); Calcium 8.7 mg/dL (8.4-10.2); Carbon Dioxide 27 mmol/L (22-30); Chloride 95 mmol/L (98-107); Estimated CRCL calculation 45 ml/min; Estimated Glomerular Filt Rate > 60; Glucose 113 mg/dL (65-110); Potassium 3.9 mmol/L (3.4-5.0); Sodium 129 mmol/L (137-145)
--- NOTE | 2024-07-10 08:04 | P.PNIM_ITS ---
Progress Note: A&P Assessment and Plan (1) Vertigo: Code(s): R42 - Dizziness and giddiness Status: Acute (2) Fracture of ulnar styloid: Code(s): S52.613A - Displaced fracture of unspecified ulna styloid process, initial en counter for closed fracture Status: Acute (3) Physical deconditioning: Code(s): R53.81 - Other malaise Status: Acute (4) Fall: Code(s): W19.XXXA - Unspecified fall, initial encounter Status: Acute Plan Acute and principal conditions 1. Physical deconditioning 2. Frequent falls 3. Left ulnar fracture 4. T6 thoracic spine fracture 5. Vertigo/Dizziness Rx: A. PT/OT eval B. Falls and safety precautions C. Meclizine prn d. MRI brain- MPRESSION: 1. No acute intracranial process. 2. Age-related changes including mild to moderate diffuse volume loss and moderate scattered pontine and cerebral white matter T2 hyperintensity consistent with chronic small vessel ischemic disease e. Orthopedic surgery consult: Patient may remove a soft splint when at wrist splint is available. Ice, elevate. Pain control. Monitor neurovascular status. Splint may be removed for bathing and hand hygiene. PT and OT with protected weight-bearing of the right upper extremity. May follow-up in the outpatient orthopedic clinic in 6 weeks for re-evaluation. -neurology was consulted, awaiting recommendation -anticipate discharge in the next day or two Chronic and stable conditions 1. Vertigo 2. GERD- restart home med 3. Glaucoma-restart home eye drops 4. Recurrent depression-restart home meds Miscellaneous care 1. Code status. Full 2. Nutrition. Heart healthy 3. VTE prophylaxis. SCDs; JANE Time Spent With Patient Time with patient: 25 - 35 minutes Subjective Date/time seen: 07/10/24 08:04 Interval history: Stella Antunez is an 79-year-old female with medical history significant for glaucoma, vertigo, GERD, depression admitted for physical deconditioning with recurrent falls and vertigo. UA: Unremarkable WBC 6.5, HGB 10.8, MCV 92, PLT 327 Na 139, K 4.4, Cl 97, CO2 22, EKG 10, BUN 18, CR 0.69, GFR 44 Mg 1.8; liver unremarkable CT thoracic spine: T6 compression fracture, likely acute to subacute. CT Cervical spine: No fracture or subluxation of the cervical spine. CT head: No acute intracranial findings. XR Hip/Pelvis: No acute osseous abnormality of the bilateral hips and pelvis. Postoperative changes in the hips and the spine. XR right foot: No acute osseous abnormality of the right foot. XR right ankle: No acute osseous abnormality of the right ankle. XR right wrist: Possible fracture in the distal ulna CXR: Unremarkable Head CT: Unremarkable Pt is seen and examined. home meds restarted. PT/OT ordered. MRI completed yesterday, no acute process. 07/10 pt is calm and pleasant, in bed. REports no acute issues. rt arm hurts at times. no n/v. Review of Systems Review of Systems: All systems reviewed & are unremarkable except as noted in HPI and below Exam Const: General: comfortable HENMT: Ears: TM's normal bilaterally Face/Nose/Sinus: Normal nares present Eyes: General: appearance normal, both eyes and all related structures Pupils: Equal, round and reactive pupils present Neck: Neck: supple Thyroid: thyroid normal Resp: Effort & Inspection: normal respiratory effort Cardio: Rate: regular rate Rhythm: regular rhythm GI: Auscultation: normal bowel sounds Skin: General skin exam: normal color Neuro: Cranial nerves: Yes Equal, round and reactive pupils present Speech: normal speech Motor exam (neuro): Abnormal motor strength present Extrem: General: normal to inspection Psych: Mental Status: mental status grossly normal Affect: Anxious affect present Objective Data Vital Signs Vital Signs: Vital Signs - 24 hr 07/09/24 09:06 07/09/24 12:00 07/09/24 14:50 Temperature 97.7 F Pulse Rate 79 Respiratory Rate 18 Blood Pressure 139/81 Pulse Oximetry 97 Oxygen Delivery Room Air Room Air 07/09/24 15:06 07/09/24 16:00 07/09/24 16:00 Temperature 98.6 F Pulse Rate 86 93 Respiratory Rate 18 Blood Pressure 140/84 Pulse Oximetry 99 Oxygen Delivery Room Air 07/09/24 19:49 07/09/24 20:00 07/09/24 20:12 Temperature 98.0 F Pulse Rate 86 98 Respiratory Rate 17 Blood Pressure 127/58 L Pulse Oximetry 93 96 Oxygen Delivery Room Air 07/09/24 20:20 07/09/24 23:19 07/10/24 00:04 Temperature 97.7 F Pulse Rate 92 80 Respiratory Rate 18 Blood Pressure 145/87 H Pulse Oximetry 96 Oxygen Delivery Room Air 07/10/24 03:32 07/10/24 04:00 Temperature 98.4 F Pulse Rate 79 71 Respiratory Rate 16 Blood Pressure 140/85 Pulse Oximetry 97 Oxygen Delivery Intake/Output Intake/Output: Intake & Output 07/07/24 07/08/24 07/09/24 07/10/24 23:59 23:59 23:59 23:59 Intake Total 680 150 Output Total 100 100 Balance -100 580 150 Meds/Results Medications: Active Medications Generic Name Dose Route Start Last Admin Trade Name Freq PRN Reason Stop Dose Admin Acetaminophen 650 mg 07/09/24 01:32 07/09/24 22:59 Acetaminophen 325 Mg Tablet PO 650 mg Q4H PRN Administration Mild Pain (1-3) or Fever Dorzolamide HCl 1 drop 07/10/24 09:00 Dorzolamide Hcl 2% Ophth Drops RIGHT EYE DAILY JANE Heparin Sodium (Porcine) 5,000 units 07/09/24 09:00 07/09/24 20:23 Heparin Sodium 5,000 Units/Ml Vial SUB-Q 5,000 units Q12HR JANE Administration Latanoprost 1 drop 07/09/24 17:00 07/09/24 17:40 Latanoprost 0.005% Op Soln 2.5 Ml Btl RIGHT EYE 1 drop BID JANE Administration Melatonin 5 mg 07/09/24 06:19 07/09/24 22:59 Melatonin 5 Mg Tablet PO 5 mg HS PRN Administration Insomnia Pantoprazole Sodium 40 mg 07/09/24 09:35 07/09/24 20:23 Pantoprazole 40 Mg Tablet PO 40 mg Q12HR JANE Administration Venlafaxine HCl 150 mg 07/09/24 18:00 07/09/24 17:39 Venlafaxine Hcl Xr 75 Mg Cap.Er.24h PO 150 mg QPM JANE Administration Radiology Results: ITS Impressions Chest X-Ray 07/08/24 22:28 IMPRESSION: No acute cardiopulmonary pathology. Wrist X-Ray 07/08/24 22:31 IMPRESSION: Possible fracture in the distal ulna. Clinical correlation advised Ankle X-Ray 07/08/24 22:33 IMPRESSION: No acute osseous abnormality of the right ankle. Foot X-Ray 07/08/24 22:34 IMPRESSION: No acute osseous abnormality of the right foot. Postoperative changes. Hip/Pelvis X-Ray 07/08/24 22:37 IMPRESSION: No acute osseous abnormality of the bilateral hips and pelvis. Postoperative changes in the hips and the spine. Head CT 07/08/24 22:43 IMPRESSION: No acute intracranial findings. Cervical Spine CT 07/09/24 05:37 Impression: No fracture or subluxation of the cervical spine. Degenerative change at the lower cervical spine, as above. Thoracic Spine CT 07/09/24 05:38 Impression: T6 compression fracture, likely acute to subacute. Degenerative changes, as above. Brain MRI 07/09/24 12:35 IMPRESSION: 1. No acute intracranial process. 2. Age-related changes including mild to moderate diffuse volume loss and moderate scattered pontine and cerebral white matter T2 hyperintensity consistent with chronic small vessel ischemic disease. Labs Labs: Laboratory Results - last 24 hr 07/09/24 07/10/24 06:39 06:10 WBC 5.0 RBC 3.51 L Hgb 10.3 L Hct 32.1 L MCV 91.5 MCH 29.3 MCHC 32.1 RDW 14.5 Plt Count 350 MPV 9.8 Immature Gran % (Auto) 0.2 Neut % (Auto) 40.9 L Lymph % (Auto) 43.5 [place] % (Auto) 10.4 H Eos % (Auto) 4.4 Baso % (Auto) 0.6 Lymph # (Auto) 2.18 [place] # (Auto) 0.5 Eos # (Auto) 0.2 Baso # (Auto) 0.0 Abs Immat Gran (auto) 0.01 Absolute Neuts (auto) 2.1 Absolute Nucleated RBC 0.000 Nucleated RBC % 0.0 Sodium 129 L Potassium 3.9 Chloride 95 L Carbon Dioxide 27 Anion Gap 7 BUN 10 D Creatinine 0.65 L Estim Creat Clear Calc 45 Estimated GFR > 60 Glucose 113 H Hemoglobin A1c 5.2 Calcium 8.7 Total Bilirubin 0.5 AST 21 ALT 12 Alkaline Phosphatase 72 Total Protein 7.0 Albumin 3.7 Quality VTE Prophylaxis VTE prophylaxis: mechanical ordered and pharmacologic ordered
[2024-07-10] MEDS: ACETAMINOPHEN 325 MG TABLET 650 MG PO (09:09)
[2024-07-10] MEDS: PANTOPRAZOLE 40 MG TABLET PO ×2 (09:09→21:04)
[2024-07-10] MEDS: HEPARIN SODIUM 5,000 UNITS/ML VIAL 5000 UNITS SUB-Q ×2 (09:10→21:04)
[2024-07-10] MEDS: VENLAFAXINE HCL XR 75 MG CAP.ER.24H 150 MG PO (17:57)
[2024-07-10] MEDS: DORZOLAMIDE HCL 2% OPHTH DROPS 1 DROP RIGHT EYE (18:17)
[2024-07-10] MEDS: LATANOPROST 0.005% OP SOLN 2.5 ML BTL 1 DROP RIGHT EYE (18:17)
[2024-07-10] MEDS: MELATONIN 5 MG TABLET PO (21:04)
[2024-07-11] VITALS: BP 143/76; PULSE 80; RESP 18; TEMP 36.1; O2SAT 97
[2024-07-11 00:04] VITALS: PULSE 76
[2024-07-11 04:00] VITALS: BP 131/78; PULSE 86; PULSE 88; RESP 18; TEMP 36.2; O2SAT 97
[2024-07-11 06:18] LABS: Basophils Percent Auto 0.7 % (0.2-1.2); Eosinophils Absolute Auto 0.2 K/mm3 (0-0.3); Eosinophils Percent Auto 5.1 % (0-4.4); Hematocrit 33.6 % (37.0-47.0); Hemoglobin 10.4 g/dL (12.0-15.0); Immature Granulocyte Absolute 0.01 K/mm3 (0.00-0.031); Immature Granulocyte Percent A 0.2 % (0-0.5); Lymphocytes Absolute Auto 1.53 K/mm3 (0.9-3.2); Lymphocytes Percent Auto 37.3 % (18.3-44.2); Mean Corpuscular Hemoglobin 29.5 pg (26-34); Mean Corpuscular Volume 95.2 fl (80-100); Mean Platelet Volume 9.9 fl (7.4-10.4); Monocytes Absolute Auto 0.4 K/mm3 (0.1-0.6); Monocytes Percent Auto 9.3 % (2.6-8.5); Neutrophils Absolute Auto 1.9 K/mm3 (1.3-6.7); Neutrophils Percent Auto 47.4 % (45.5-73.1); Platelet Count Result 363 k/mm3 (150-375); Red Blood Count 3.53 M/mm3 (4.2-5.4); Red Cell Distribution Width 14.4 % (11.5-14.5); White Blood Count 4.1 K/mm3 (4.5-10.0)
[2024-07-11 06:26] LABS: Alanine Aminotransferase 12 U/L (6-35); Albumin Level 3.5 g/dL (3.5-5.1); Alkaline Phosphatase 66 U/L (38-126); Anion Gap 8 mmol/L (4-12); Aspartate Amino Transferase 20 U/L (14-36); Bilirubin,Total 0.3 mg/dL (0.2-1.3); Blood Urea Nitrogen 13 mg/dL (7-17); Calcium 8.6 mg/dL (8.4-10.2); Carbon Dioxide 27 mmol/L (22-30); Chloride 96 mmol/L (98-107); Estimated CRCL calculation 41 ml/min; Estimated Glomerular Filt Rate > 60; Glucose 103 mg/dL (65-110); Potassium 3.6 mmol/L (3.4-5.0); Sodium 131 mmol/L (137-145)
[2024-07-11 08:00] VITALS: BP 122/67; PULSE 84; PULSE 93; RESP 12; O2SAT 98
[2024-07-11] MEDS: ACETAMINOPHEN 325 MG TABLET 650 MG PO (08:21)
[2024-07-11] MEDS: LATANOPROST 0.005% OP SOLN 2.5 ML BTL 1 DROP RIGHT EYE (08:22)
[2024-07-11] MEDS: PANTOPRAZOLE 40 MG TABLET PO (08:22)
[2024-07-11] MEDS: HEPARIN SODIUM 5,000 UNITS/ML VIAL 5000 UNITS SUB-Q (08:22)
[2024-07-11] MEDS: DORZOLAMIDE HCL 2% OPHTH DROPS 1 DROP RIGHT EYE (08:22)
--- NOTE | 2024-07-11 11:17 | P.DS_ITS ---
DS: Admitting Diagnosis Discharge Date 07/11 Admitting Diagnosis fall, vertigo DS: Discharge Diagnosis Discharge Diagnosis (1) Vertigo: Code(s): R42 - Dizziness and giddiness Status: Acute (2) Fracture of ulnar styloid: Code(s): S52.613A - Displaced fracture of unspecified ulna styloid process, initial encounter for closed fracture Status: Acute (3) Physical deconditioning: Code(s): R53.81 - Other malaise Status: Acute (4) Fall: Code(s): W19.XXXA - Unspecified fall, initial encounter Status: Acute DS: Summary Hospital Course Hospital Course: Stella Antunez is an 79-year-old female with medical history significant for glaucoma, vertigo, GERD, depression admitted for physical deconditioning with recurrent falls and vertigo. Several issues were addressed: 1. Physical deconditioning 2. Frequent falls 3. Left ulnar fracture 4. T6 thoracic spine fracture 5. Vertigo/Dizziness A. PT/OT eval B. Falls and safety precautions C. Meclizine prn d. MRI brain- MPRESSION: 1. No acute intracranial process. 2. Age-related changes including mild to moderate diffuse volume loss and moderate scattered pontine and cerebral white matter T2 hyperintensity consistent with chronic small vessel ischemic disease e. Orthopedic surgery consult: Patient may remove a soft splint when at wrist splint is available. Ice, elevate. Pain control. Monitor neurovascular status. Splint may be removed for bathing and hand hygiene. PT and OT with protected weight-bearing of the right upper extremity. May follow-up in the out patient orthopedic clinic in 6 weeks for re-evaluation. -neurology was consulted, awaiting recommendation -anticipate discharge in the next day or two -she worked with pt/ot and did well. stable for discharge today. Status at Discharge Functional status at discharge: uses cane/walker Overall status at discharge: patient is progressing back to baseline Time Spent with Patient Time attestation: Total time spent providing and/or coordinating discharge services: Time spent: Greater than 30 minutes Exam Const: General: comfortable HENMT: Ears: TM's normal bilaterally Face/Nose/Sinus: Normal nares present Eyes: General: appearance normal, both eyes and all related structures Pupils: Equal, round and reactive pupils present Neck: Neck: supple Thyroid: thyroid normal Resp: Effort & Inspection: normal respiratory effort Cardio: Rate: regular rate Rhythm: regular rhythm GI: Auscultation: normal bowel sounds Skin: General skin exam: normal color Neuro: Cranial nerves: Yes Equal, round and reactive pupils present Speech: normal speech Motor exam (neuro): Abnormal motor strength present Extrem: General: normal to inspection Psych: Mental Status: mental status grossly normal Affect: Anxious affect present DS: Data Data Completed and Pending Labs on day of discharge: Labs from last 24 hours 07/11/24 05:48 WBC 4.1 L RBC 3.53 L Hgb 10.4 L Hct 33.6 L MCV 95.2 MCH 29.5 MCHC 31.0 L RDW 14.4 Plt Count 363 MPV 9.9 Immature Gran % (Auto) 0.2 Neut % (Auto) 47.4 Lymph % (Auto) 37.3 [place] % (Auto) 9.3 H Eos % (Auto) 5.1 H Baso % (Auto) 0.7 Lymph # (Auto) 1.53 [place] # (Auto) 0.4 Eos # (Auto) 0.2 Baso # (Auto) 0.0 Abs Immat Gran (auto) 0.01 Absolute Neuts (auto) 1.9 Absolute Nucleated RBC 0.000 Nucleated RBC % 0.0 Sodium 131 L Potassium 3.6 Chloride 96 L Carbon Dioxide 27 Anion Gap 8 BUN 13 Creatinine 0.71 Estim Creat Clear Calc 41 Estimated GFR > 60 Glucose 103 Calcium 8.6 Total Bilirubin 0.3 AST 20 ALT 12 Alkaline Phosphatase 66 Total Protein 6.0 L Albumin 3.5 Discharge Plan Discharge Attending physician on discharge: Sacha Guardado Consulting providers: Samir Lock Discharging Clinician: Kaila Brooke Patient Disposition: Home Activity: may shower Diet: regular Discharge Instructions: You were seen for vertigo and fall. Ortho evaluated you. Please see their recommendations: Recommended non operative treatment. Patient may remove a soft splint when at wrist splint is available. Ice, elevate. Pain control. Monitor neurovascular status. Splint may be removed for bathing and hand hygiene. PT and OT with protected weight-bearing of the right upper extremity. May follow-up in the outpatient orthopedic clinic in 6 weeks for re- evaluation. As we discussed, please elevate rt arm to reduce swelling. Take tylenol if need ed for pain. Patient Instructions: Antibiotic Form Patient Language: Ukrainian Stand Alone Forms: General Discharge Information Follow-up/Referrals: Teetee,Ruddy Davis MD [Primary Care Provider] - 2 Weeks Genoveva Coello FNP [Advanced Practice Nurse] - 6 Weeks Discharge Medications: Continued venlafaxine 150 mg capsule,extended release 24hr 150 mg PO QPM pantoprazole 40 mg tablet,delayed release (DR/EC) 40 mg PO Q12H latanoprost 0.005 % drops 1 drp RIGHT EYE BID dorzolamide 2 % drops 1 drp RIGHT EYE DAILY Date of admission: 07/09/24 01:32 Primary Care Provider: TeeteeRuddy Admitting Provider: Robert Junior Attending physician on admission: Robert Junior Condition: Stable Quality VTE Prophylaxis VTE prophylaxis: mechanical ordered and pharmacologic ordered Hospitalist MIPS Heart Failure (Exclusion) Patient has history of Heart Transplant or Left Ventricular Assistive Device?: No IF YES, STOP HERE Heart Failure (Qualifier) Patient has current or prior documentation of LVEF less than or equal to 40%, or mod/servere depressed LVSF?: No IF NO, STOP HERE
== END 2024-07-11 12:32 | disposition home or self-care (01) ==
LOC: ANHED 07-09 01:53 → ANH2MED 07-09 07:30
PROVIDERS: Admitting Provider Internal Medicine; Emergency Provider Emergency Medicine; PCP Family Medicine; Visit Provider General Practice
DX: R42 Dizziness and giddiness (principal); S52.091A Other fracture of upper end of right ulna, initial encounter for closed fracture; W18.30XA Fall on same level, unspecified, initial encounter; R29.6 Repeated falls; S22.059A Unspecified fracture of T5-T6 vertebra, initial encounter for closed fracture; R53.81 Other malaise; K21.9 Gastro-esophageal reflux disease without esophagitis; H40.9 Unspecified glaucoma; Z79.899 Other long term (current) drug therapy
CPT/HCPCS: 36415; 70450; 70553; 71046; 72125; 72128; 73110; 73521; 73610; 73630; 80053; 80061; 81001; 83036; 83605; 83735; 84484; 85025; 93005; 96372; 97110; 97161; 97165; 97530; 99285; A9270; A9579; G0378; J1644

== ENCOUNTER 2024-10-12 12:37 | Observation (INO) | payer MEDICARE, SELFPAY ==
[2024-10-12] VITALS (8 sets, daily range): BP systolic 125–171; BP diastolic 70–100; PULSE 81–116; RESP 16–22; TEMP 36.4–36.6; O2SAT 96–100; BMI 19.7
--- NOTE | ~2024-10-12 | CT_ITS ---
CTA brain carotid Ordering provider: Kaylin Pavon PA-C History: . persistent vertigo, unable to ambulate . Comparison: July 08, 2024 Technique: CT angiogram head and neck was performed following timed intravenous injection of contrast . Thin slice axial images and reformatted coronal images were obtained. Three dimensional reformatted images of the brain were also obtained using a [employer] workstation. Radiation reduction technique ut ilized. The dose-length product was 1335.32 mGy-cm. 100 mL Omnipaque 350 was given IV. FINDINGS: HEAD: --ANTERIOR AND MIDDLE CEREBRAL ARTERIES AND BRANCHES: Normal caliber and contour. --INTERNAL CAROTID ARTERIES: Mild atheromatous disease but no significant stenosis. No occlusion. --BASILAR ARTERY AND BRANCHES: Normal caliber and contour. No atheromatous disease. --POSTERIOR CEREBRAL ARTERIES: Normal caliber and contour --POSTERIOR COMMUNICATING ARTERIES: The right is demonstrated. The left is not visualized which is pr obably related to congenital absence or small size. --ANEURYSM: None visualized. --BRAIN: Moderate the brain atrophy with deep white matter ischemic changes. Otherwise, normal. --BONES AND SUPERFICIAL SOFT TISSUES: Normal. Calcification in the right orbit unchanged. --PARANASAL SINUSES AND MASTOIDS: Well aerated. NECK: --RIGHT CERVICAL CAROTID SYSTEM: Mild atheromatous disease of the carotid bulb and proximal internal carotid artery without significant stenosis. Percent stenosis per NASCET criteria is 0%. No carotid dissection. Otherwise, no significant atheromatous disease or stenosis of the cervical carotid system . --LEFT CERVICAL CAROTID SYSTEM: Normal caliber and contour. Percent stenosis per NASCET criteria is No carotid dissection. Otherwise, no significant atheromatous disease or stenosis of the cervical carotid system. --VERTEBRAL ARTERIES: Normal caliber and contour. --VISUALIZED AORTIC ARCH AND BRANCHING VESSELS: Mild atheromatous disease but no significant stenosis . Dependent atelectatic changes in the lungs. --SOFT TISSUES: Normal. --CERVICAL SPINE: Age appropriate degenerative changes. IMPRESSION: 1. Normal CTA head. 2. CTA neck. Percent stenosis per NASCET criteria is 0%. Reviewed, dictated and finalized at location A.
--- OUTSIDE RECORDS SUMMARY | 2024-10-12 12:40 | XMS_ITS | Referral Summary ---
Author Organization [facility] [address] Address [address] [place] [address] Care Team Providers Care Color Print Inspector Name Role Phone Ruddy Kingsley MD Primary Care Provider Encounters Date Type Department Care Team Description 09/03/2024 Patient Message [facility] Primary Care at [address] [phone] Ruddy Kingsley MD Rollator 09/02/2024 Orders Only [facility] Primary Care at [address] [phone] Jeremi Vanessa MD 08/24/2024 Documentation [facility] Cardiology [address] [facility] [place] [address] Glo Ivrin MD 08/19/2024 10:15 AM CDT Office Visit [facility] Primary Care at [address] [phone] Ruddy Kingsley MD Essential hypertension (Primary Dx); Pure hypercholesterolemi a; Vertigo; Gastroesophageal reflux disease without esophagitis; SVT (supraventricular tachycardia) 08/07/2024 Telephone [facility] Primary Care at [address] [phone] Ruddy Kingsley MD Med Refill 07/27/2024 Telephone [facility] Primary Care at [address] [phone] Lyudmila Ritter MA 07/21/2024 Telephone [facility] Primary Care at [address] [phone] Ruddy Kingsley MD 07/19/2024 Telephone [facility] Primary Care at [address] [phone] Ruddy Kingsley MD Medication Request 07/19/2024 Documentation [facility] Cardiology [facility] [address] [place] [address] Glo Irvin MD 07/19/2024 3:30 PM CDT Office Visit [facility] Primary Care at [address] [phone] Ruddy Kingsley MD Vertigo (Primary Dx) 07/13/2024 Telephone [facility] Cardiology [address] [facility] Medicine 8th [place] [address] [place] [address] Glo Irvin MD 07/13/2024 11:30 AM CDT Ancillary Procedure [facility] Cardiology [address] [place] [address] [address] [facility] [place] [address] Dizziness; Falls frequently 07/13/2024 11:15 AM CDT Office Visit [facility] Cardiology [address] [facility] [address] [place] [address] Glo Irvin MD Dizziness (Primary Dx); Syncope, unspecified syncope type; Falls frequently from Last 3 Months Allergies Active Allergy Reactions Criticality Noted Date Comments Mold Other (See comments),Rhinitis Low 11/26/2013 MOLD AND DUST CAUSE EYE IRRITATION AND RUNNY NOSE Other Rhinitis Low 02/22/2021 Agent: Dust Medications traMADoL (ULTRAM) 50 mg tabletIndications :Degeneration of intervertebral disc of lumbar region, unspecified whether pain present TAKE ONE-HALF TABLET BY MOUTH EVERY 8 HOURS NEEDED Active latanoprost (XALATAN) 0.005 % ophthalmic solution Active cholecalciferol (VITAMIN D-3) 5,000 unit capsuleIndication s:Vitamin D insufficiency Active cetirizine (ZyrTEC) 10 mg tablet Take 1 tablet (10 mg total) by mouth Active acetaminophen (TYLENOL) 325 mg tablet Take 2 tablets (650 mg total) by mouth every 4 (four) hours as needed Active baclofen (LIORESAL) 10 mg tablet Take 1 tablet (10 mg total) by mouth nightly Active dorzolamide (TRUSOPT) 2 % ophthalmic solution 1 drop 3 (three) times a day Active pantoprazole DR (PROTONIX) 40 mg EC tabletIndications :Gastroesophageal reflux disease without esophagitis Take 1 tablet (40 mg total) by mouth daily 30 tablet 3 025 2025 Active ondansetron ODT (ZOFRAN-ODT) 4 mg disintegrating tabletIndications :Vertigo Take 1 tablet (4 mg total) by mouth every 8 (eight) hours as needed for nausea or vomiting 20 tablet 1 Active diazePAM (VALIUM) 2 mg tabletIndications :vertigo Take 1 tablet (2 mg total) by mouth every 6 (six) hours as needed for anxiety 30 tablet 1 Active naloxone (NARCAN) 4 mg/actuation spray,non-aerosol Indications:risk mitigation for opioid overdose Administer 1 spray into affected nostril(s) as needed for opioid reversal or respiratory depression Call 911. Administer a single spray in one nostril. Repeat every 3 minutes as needed if no or minimal response. 1 each 025 Active meclizine (ANTIVERT) 12.5 mg tablet Take 1 tablet (12.5 mg total) by mouth 3 (three) times a day as needed for dizziness 90 tablet 1 025 Active sodium chloride (OCEAN) 0.65 % nasal spray Administer 1 spray into each nostril as needed for rhinitis Active metoprolol XL (TOPROL-XL) 25 mg extended release tablet Take 1 tablet (25 mg total) by mouth daily 30 tablet 11 025 2025 Active venlafaxine XR (EFFEXOR-XR) 75 mg 24 hr capsule TAKE 1 CAPSULE BY MOUTH DAILY - TAKE WITH FOOD. 90 capsule 1 025 Active venlafaxine XR (EFFEXOR-XR) 75 mg 24 hr capsule Take 1 capsule (75 mg total) by mouth daily Take with food. 30 capsule 025 2024 Discontinued venlafaxine XR (EFFEXOR-XR) 75 mg 24 hr capsule TAKE 1 CAPSULE BY MOUTH DAILY TAKE WITH FOOD. 30 capsule 025 2024 Discontinued Active Problems Problem Noted Date Diagnosed Date Falls frequently 07/13/2024 Syncope 05/23/2024 Encounter for medical examination to [...] vative Free, Intramuscular 03/31/2013 Influenza, Unspecified 12/28/2023,12/31/2011,01/2011 Pfizer Sars-Cov-2 Bivalent V accination (12+ YRS) 03/18/2022 [...] more points, staff should administer the PHQ-9) 2 08/19/2024 PHQ-9 Answer Date Recorded PHQ-9 Total Score 5 08/19/2024 Comments Unknown Sex and Gender Information Value Date Recorded Sex Assigned at Not on file Legal Sex Female 3:59 PM CDT Gender Identity Not on file Sexual Orientation Not on file Last Filed Vital Signs Vital Sign Reading Time Taken Comments Blood Pressure 132/80 08/19/2024 10:36 AM CDT Pulse 77 08/19/2024 10:36 AM CDT Temperature 36.1 C (96.9 F) 08/19/2024 10:36 AM CDT Respiratory Rate 18 08/19/2024 10:36 AM CDT Oxygen Saturation 99% 08/19/2024 10:36 AM CDT Inhaled Oxygen Concentration - - Weight 54.4 kg (120 lb) 08/19/2024 10:36 AM CDT Height 152.4 cm (5') 08/19/2024 10:36 AM CDT Body Mass Index 23.44 08/19/2024 10:36 AM CDT Plan of Treatment Not on file Procedures Procedure Name Priority Date/Time Associated Diagnosis Comments MCT - MOBILE CARDIAC TELEMETRY EVENT MONITOR Routine 07/13/2024 1:22 PM CDT Dizziness Falls frequently from Last 3 Months Results * MCT Mobile Cardiac Telemetry Event Monitor (07/13/2024 1:22 PM CDT) Anatomical Region Laterality Modality Electrocardiogra phy 08/12/2024 11:5 9 PM CDT Narrative 08/16/2024 3:13 PM CDT [facility] [address], [address] [place] [address] CARDIAC EVENT MONITOR REPORT Patient Name: STELLA CONNORS : 1945 (79y 3m) Gender: F Study Date: 08/12/2024 11:59:00 PM Ht(Inch): 60 Wt(Lb): 121 BSA: 1.52 Tech: Location: [facility] Order Provider: GLO IRVIN BMI: 23.63 Ref Provider: GLO IRVIN PROCEDURES: Enrollment Period: 07/14/2024 - 08/12/2024. Monitor Number: [id number]. Hookup: Hookup Tech: Saji Glover. Patient Instructions: Patient given monitor in office during appointment, patient understands directions and use of equipment. Location: [facility]. INDICATIONS: R42 Dizziness and giddiness and R29.6 Repeated falls. FINDINGS: Event Data: Min Rate: 65 BPM Min Rate Timestamp: 2024-07-31 01:18:00 Max Rate: 191 BPM Max Rate Timestamp: 2024-08-11 20:28:00 Mean Rate: 90 BPM Total beats: [id number] Protocol: Number of Diary entries: 30 Automatically Detected Events: 1 Serious: SVT, Sinus Tachycardia w/PACs 2 Serious: SVT, Sinus Tachycardia 1 Serious: SVT (2.2 - 35.7 sec), Sinus Tachycardia w/PACs 1 Serious: SVT (), Sinus Tachycardia w/PACs 1 Stable: Sinus Rhythm 1 Stable: Sinus Rhythm, SVT Onset w/PACs Manually Detected Events: 1 Stable: Sinus Tachycardia, Sinus Rhythm Dizziness 1 Stable: Sinus Tachycardia, Sinus Rhythm w/PACs Dizziness; Shortness of Breath; Light-Headedness 2 Stable: Sinus Rhythm w/PACs None or Accidental Push 3 Stable: Sinus Rhythm w/PACs None Reported 1 Stable: Sinus Tachycardia, Sinus Rhythm w/PACs None Reported 1 Stable: Sinus Rhythm w/PACs Shortness of Breath 1 Stable: Sinus Rhythm w/PACs Tired or Fatigued; Light-Headedness; Dizziness; Shortness of Breath 1 Stable: Sinus Rhythm w/PACs Dizziness; Shortness of Breath; Light-Headedness 1 Stable: Sinus Tachycardia w/PACs Light-Headedness; Shortness of Breath; Dizziness 1 Stable: Sinus Rhythm w/PACs Rapid or Fast Heartbeat; Tired or Fatigued; Light- Headedness; Dizziness; Short 1 Stable: Sinus Tachycardia w/PACs Tired or Fatigued; Rapid or Fast Heartbeat; Light- Headedness; Dizziness; Short 1 Stable: Sinus Rhythm w/PACs Tired or Fatigued 1 Stable: Sinus Tachycardia w/PACs Light-Headedness; Dizziness; Shortness of Breath 1 Stable: Sinus Tachycardia w/Couplet PACs/PACs/Non-Conducted P Wave Light-Headedness; Dizziness; Shortness of Breath; Rapid or Fast Heartbeat 1 Stable: Sinus Tachycardia w/Couplet PACs/PACs Flutter or Skipped Beats; Shortness of Breath; Rapid or Fast Heartbeat; Light- 1 Stable: Sinus Tachycardia w/PACs None Reported 1 Stable: Sinus Tachycardia w/Couplet PACs None or Accidental Push 1 Stable: Sinus Tachycardia Light-Headedness; Dizziness; Shortness of Breath 1 Stable: Sinus Rhythm Rapid or Fast Heartbeat; Light-Headedness; Dizziness 1 Stable: Tachyarrhythmia, Sinus Rhythm w/Artifact None or Accidental Push Study Quality: Study quality is good. SUMMARY: y Findings: *The predominant rhythm was Sinus Rhythm. *The Maximum Heart Rate recorded was 191 BPM, 08:28 PM 08/11, the Minimum Heart Rate recorded was 65 BPM, 01:18 AM 3 and the Average Heart Rate was 90 BPM. *There were 1,005 VE beats with a burden of <1 %. *There were 195,124 SVE beats with a burden of 6 %. There were 21 occurrences of Supraventricular Tachycardia with the longest episode 2m 26s, 10:46 PM 08/11 and fastest episode 196 BPM, 10:46 PM 08/11. *There were 23 manually detected events all in sinus rhythm or sinus tach. 5 Automatically Detected Serious, narrow complex, Events: as afast as 191 bpm 1 Serious: SVT, Sinus Tachycardia w/PACs 2 Serious: SVT, Sinus Tachycardia 1 Serious: SVT (2.2 - 35.7 sec), Sinus Tachycardia w/PACs 1 Serious: SVT (), Sinus Tachycardia w/PACs. Summary $ReportSummary$. CONCLUSIONS: 1. y Findings: *The predominant rhythm was Sinus Rhythm. *The Maximum Heart Rate recorded was 191 BPM, 08:28 PM 08/11, the Minimum Heart Rate recorded was 65 BPM, 01:18 AM 07/31 and the Average Heart Rate was 90 BPM. *There were 1,005 VE beats with a burden of <1 %. *There were 195,124 SVE beats with a burden of 6 %. There were 21 occurrences of Supraventricular Tachycardia with the longest episode 2m 26s, 10:46 PM 08/11 and fastest episode 196 BPM, 10:46 PM 08/11. *There were 23 manually detected events all in sinus rhythm or sinus tach. 5 Automatically Detected Serious, narrow complex, Events: as afast as 191 bpm 1 Serious: SVT, Sinus Tachycardia w/PACs 2 Serious: SVT, Sinus Tachycardia 1 Serious: SVT (2.2 - 35.7 sec), Sinus Tachycardia w/PACs 1 Serious: SVT (), Sinus Tachycardia w/PACs Summary $ReportSummary$. 2. The PDF can be found in the [facility] Patient chart. Please go to the Cardiology tab, click on the holter or event exam. Scroll to bottom where the ORDER-LEVEL Documents reside and click the blue link to the pdf. Electronically Signed By: Frantz Ervin Jr., M.D. 08/16/2024 3:12:23 PM CDT Electronically Signed By: Frantz Ervin Jr., M.D. 08/16/2024 3:12:23 PM CDT Procedure Note Frantz Ervin MD PhD - 08/16/2024 [facility], [address] [place] [address] CARDIAC EVENT MONITOR REPORT Patient Name: STELLA CONNORS : 1945 (79y 3m) Gender: F Study Date: 08/12/2024 11:59:00 PM Ht(Inch): 60 Wt(Lb): 121 BSA: 1.52 Tech: Location: [facility] Order Provider: GLO IRVIN BMI: 23.63 Ref Provider: GLO IRVIN PROCEDURES: Enrollment Period: 07/14/2024 - 08/12/2024. Monitor Number: [id number]. Hookup: Hookup Tech: Saji Glover. Patient Instructions: Patient given monitor in office during appointment,patient understands directions and use of equipment. Location: [facility]. INDICATIONS: R42 Dizziness and giddiness and R29.6 Repeated falls. FINDINGS: Event Data: Min Rate: 65 BPM Min Rate Timestamp: 2024-07-31 01:18:00 Max Rate: 191 BPM Max Rate Timestamp: 2024-08-11 20:28:00 Mean Rate: 90 BPM Total beats: [id number] Protocol: Number of Diary entries: 30 Automatically Detected Events: 1 Serious: SVT, Sinus Tachycardia w/PACs 2 Serious: SVT, Sinus Tachycardia 1 Serious: SVT (2.2 - 35.7 sec), Sinus Tachycardia w/PACs 1 Serious: SVT (), Sinus Tachycardia w/PACs 1 Stable: Sinus Rhythm 1 Stable: Sinus Rhythm, SVT Onset w/PACs Manually Detected Events: 1 Stable: Sinus Tachycardia, Sinus Rhythm Dizziness 1 Stable: Sinus Tachycardia, Sinus Rhythm w/PACs Dizziness; Shortness of Breath; Light-Headedness 2 Stable: Sinus Rhythm w/PACs None or Accidental Push 3 Stable: Sinus Rhythm w/PACs None Reported 1 Stable: Sinus Tachycardia, Sinus Rhythm w/PACs None Reported 1 Stable: Sinus Rhythm w/PACs Shortness of Breath 1 Stable: Sinus Rhythm w/PACs Tired or Fatigued; Light-Headedness; Dizziness; Shortness of Breath 1 Stable: Sinus Rhythm w/PACs Dizziness; Shortness of Breath; Light-Headedness 1 Stable: Sinus Tachycardia w/PACs Light-Headedness; Shortness of Breath; Dizziness 1 Stable: Sinus Rhythm w/PACs Rapid or Fast Heartbeat; Tired or Fatigued; Light- Headedness; Dizziness; Short 1 Stable: Sinus Tachycardia w/PACs Tired or Fatigued; Rapid or Fast Heartbeat; Light- Headedness; Dizziness; Short 1 Stable: Sinus Rhythm w/PACs Tired or Fatigued 1 Stable: Sinus Tachycardia w/PACs Light-Headedness; Dizziness; Shortness of Breath 1 Stable: Sinus Tachycardia w/Couplet PACs/PACs/Non-Conducted P Wave Light-Headedness; Dizziness; Shortness of Breath; Rapid or Fast Heartbeat 1 Stable: Sinus Tachycardia w/Couplet PACs/PACs Flutter or Skipped Beats; Shortness of Breath; Rapid or Fast Heartbeat; Light- 1 Stable: Sinus Tachycardia w/PACs None Reported 1 Stable: Sinus Tachycardia w/Couplet PACs None or Accidental Push 1 Stable: Sinus Tachycardia Light-Headedness; Dizziness; Shortness of Breath 1 Stable: Sinus Rhythm Rapid or Fast Heartbeat; Light-Headedness; Dizziness 1 Stable: Tachyarrhythmia, Sinus Rhythm w/Artifact None or Accidental Push Study Quality: Study quality is good. SUMMARY: y Findings: *The predominant rhythm was Sinus Rhythm. *The Maximum Heart Rate recorded was 191 BPM, 08:28 PM 08/11, the MinimumHeart Rate recorded was 65 BPM, 01:18 AM 5/3 and the Average Heart Rate was 90 BPM. *There were 1,005 VE beats with a burden of <1 %. *There were 195,124 SVE beats with a burden of 6 %. There were 21occurrences of Supraventricular Tachycardia with the longest episode 2m 26s, 10:46 PM5/14 and fastest episode 196 BPM, 10:46 PM 14. *There were 23 manually detected events all in sinus rhythm or sinustach. 5 Automatically Detected Serious, narrow complex, Events: as afast as 191bpm 1 Serious: SVT, Sinus Tachycardia w/PACs 2 Serious: SVT, Sinus Tachycardia 1 Serious: SVT (2.2 - 35.7 sec), Sinus Tachycardia w/PACs 1 Serious: SVT (), Sinus Tachycardia w/PACs. Summary $ReportSummary$. CONCLUSIONS: 1. y Findings: *The predominant rhythm was Sinus Rhythm. *The Maximum Heart Rate recorded was 191 BPM, 08:28 PM 08/11, the MinimumHeart Rate recorded was 65 BPM, 01:18 AM 3 and the Average Heart Rate was 90 BPM. *There were 1,005 VE beats with a burden of <1 %. *There were 195,124 SVE beats with a burden of 6 %. There were 21occurrences of Supraventricular Tachycardia with the longest episode 2m 26s, 10:46 PM5/14 and fastest episode 196 BPM, 10:46 PM 14. *There were 23 manually detected events all in sinus rhythm or sinustach. 5 Automatically Detected Serious, narrow complex, Events: as afast as 191bpm 1 Serious: SVT, Sinus Tachycardia w/PACs 2 Serious: SVT, Sinus Tachycardia 1 Serious: SVT (2.2 - 35.7 sec), Sinus Tachycardia w/PACs 1 Serious: SVT (), Sinus Tachycardia w/PACs Summary $ReportSummary$. 2. The PDF can be found in the [facility] Patient chart. Please go to theCardiology tab, click on the holter or event exam. Scroll to bottom where the ORDER-LEVELDocuments reside and click the blue link to the pdf. Electronically Signed By: Frantz Ervin Jr., M.D. 08/16/2024 3:12:23 PM CDT Electronically Signed By: Frantz Ervin Jr., M.D. 08/16/2024 3:12:23 PM CDT Glo Irvin MD CV CARDIAC SERVICES PROCEDURES Final Result from Last [address] [facility] MED[facility] Address: [address] [phone] [facility] [facility] Address: [address] [place] [phone] Care Teams Color Print Inspector Relationship Specialty Start Date End Date Ruddy Kingsley MD [address] [place] [id number] PCP - General Family Medicine 01/22/24
--- OUTSIDE RECORDS SUMMARY | 2024-10-12 12:40 | XMS_ITS | Clinical Summary ---
Author Organization [facility] Medical Office Building B Address [address] [place] [address] Care Team Providers Care Doughnut Glazier Name Role Phone Ruddy Kingsley MD Primary [...] TABLET BY MOUTH EVERY 8 HOURS NEEDED 024 Active latanoprost (XALATAN) 0.005 % ophthalmic solution 021 Active cholecalciferol (VITAMIN D-3) 5,000 unit capsuleIndication s:Vitamin D insufficiency Active cetirizine (ZyrTEC) 10 mg tablet Take 1 tablet (10 mg total) by mouth Active acetaminophen (TYLENOL) 325 mg tablet Take 2 tablets (650 mg total) by mouth every 4 (four) hours as needed 021 Active baclofen (LIORESAL) 10 mg tablet Take 1 tablet (10 mg total) by mouth nightly 021 Active dorzolamide (TRUSOPT) 2 % ophthalmic solution [...] if no or minimal response. 1 each Active meclizine (ANTIVERT) 12.5 mg tablet Take 1 tablet (12.5 mg total) by mouth 3 (three) times a day as needed for dizziness 90 tablet 1 Active sodium chloride (OCEAN) 0.65 % nasal spray Administer 1 spray into each nostril as needed for rhinitis Active metoprolol XL (TOPROL-XL) 25 mg extended release tablet Take 1 tablet (25 mg total) by mouth daily 30 tablet 11 025 2025 Active venlafaxine XR (EFFEXOR-XR) 75 mg 24 hr capsule TAKE 1 CAPSULE BY MOUTH DAILY - TAKE WITH FOOD. 90 capsule 1 Active venlafaxine XR (EFFEXOR-XR) 75 mg 24 [...] Department Care Team Description 09/03/2024 Patient Message [facility] Primary Care at [address] [phone] Ruddy Kingsley MD Rollator 09/02/2024 Orders Only [facility] Primary Care at [address] [phone] Jeremi Vanessa MD 08/24/2024 Documentation [facility] Cardiology [address] [facility] [address] [place] [address] Glo Irvin MD 08/19/2024 10:15 AM CDT Office Visit [facility] Primary Care at [address] [phone] Ruddy Kingsley MD Essential hypertension (Primary Dx); Pure hypercholesterolemi a; Vertigo; Gastroesophageal reflux disease without esophagitis; SVT (supraventricular tachycardia) 08/07/2024 Telephone [facility] Primary Care at [address] [phone] Ruddy Kingsley MD Med Refill 07/27/2024 Telephone [facility] Primary Care at [address] [phone] Lyudmila Ritter MA 07/21/2024 Telephone [facility] Medical [facility] Primary Care at [address] [phone] Ruddy Kingsley MD 07/19/2024 3:30 PM CDT Office Visit [facility] Medical [facility] Primary Care at [address] [phone] Ruddy Kingsley MD Vertigo (Primary Dx) 07/19/2024 Telephone [facility] Primary Care at [address] [phone] Ruddy Kingsley MD Medication Request 07/19/2024 Documentation [facility] Cardiology [address] [facility] Medical Office Building 3 [address] [place] [address] Glo Irvin MD 07/13/2024 11:30 AM CDT Ancillary Procedure [facility] Cardiology [address] [place] [address] [place] [phone] Dizziness; Falls frequently 07/13/2024 11:15 AM CDT Office Visit [facility] Cardiology [address] [place] [address] [place] [phone] Glo Irvin MD Dizziness (Primary Dx); Syncope, unspecified syncope type; Falls frequently 07/13/2024 Telephone [facility] Cardiology [address] [facility] 8th [place] [address] [place] [address] Glo Irvin MD from Last 3 Months Immunizations Immunization [...] 04/14/2022 Surgical History Surgery Date Site/Laterality Comments BUNIONECTOMY HIP SURGERY Bilateral hip replacement JOINT REPLACEMENT CATARACT EXTRACTION Medical History Medical History Date Comments Vertigo [...] 08/19/2024 10:36 AM CDT Plan of Treatment Health Maintenance Due Date Last Done Comments Hepatitis B Screening 1963 Covid-19 Vaccine ( season) 2024 11/27/2023, 03/18/2022, 01/03/2021, Additional history exists Influenza Vaccine (#1) 2024 , 02/06/2023, 03/19/2022, Additional history exists Fall Risk Assessment 01/21/2025 01/22/2024 Well Visit 65+ 01/21/2025 01/22/2024 Zoster Vaccine (1 of 2) 01/21/2025 Post poned from 1994 (Insurance / Financial) Osteoporosis Screening-Bone Density Scan 05/19/2025 Postponed from 1945 (Patient declined, but will receive in the future) Depression Screening 08/19/2025 08/19/2024, 08/19/2024, 05/19/2024, Additional history exists DTaP/Tdap/Td Vaccine (2 - Td or Tdap) 04/14/2032 04/14/2022 Pneumococcal vaccine 65+ Completed 016, 12/21/2014, 12/29/2012 Procedures Procedure Name Priority Date/Time Associated Diagnosis Comments MCT - MOBILE CARDIAC TELEMETRY EVENT MONITOR Routine 07/13/2024 1:22 PM CDT Dizziness Falls frequently from Last 3 Months Results * MCT Mobile Cardiac Telemetry Event Monitor (07/13/2024 1:22 PM CDT) Anatomical Region Laterality Modality Electrocardiogra phy 08/12/2024 11:5 9 PM CDT Narrative 08/16/2024 3:13 PM CDT [facility] [place] [address] CARDIAC EVENT MONITOR REPORT Patient Name: STELLA CONNORS : 1945 (79y 3m) Gender: F Study Date: 08/12/2024 11:59:00 PM Ht(Inch): 60 Wt(Lb): 121 BSA: 1.52 Tech: Location: [facility] Order Provider: GLO IRVIN BMI: 23.63 Ref Provider: GLO IRVIN PROCEDURES: Enrollment Period: 07/14/2024 - 08/12/2024. Monitor Number: [id number]. Hookup: Hookup Tech: Saji Glover. Patient Instructions: Patient given monitor in office during appointment, patient understands directions and use of equipment. Location: [facility]. INDICATIONS: R42 Dizziness and giddiness and R29.6 Repeated falls. FINDINGS: Event Data: Min Rate: 65 BPM Min Rate Timestamp: 2024-07-31 01:18:00 Max Rate: 191 BPM Max Rate Timestamp: 2024-08-11 20:28:00 Mean Rate: 90 BPM Total beats: [id number] Protocol: Number of Diary entries: 30 Automatically [...] MD PhD - 08/16/2024 [facility], [address] [place] [address] CARDIAC EVENT MONITOR REPORT Patient Name: STELLA CONNORS : 1945 (79y 3m) Gender: F Study Date: 08/12/2024 11:59:00 PM Ht(Inch): 60 Wt(Lb): 121 BSA: 1.52 Tech: Location: [facility] Order Provider: BRET GLO BMI: 23.63 Ref Provider: GLO IRVIN PROCEDURES: Enrollment Period: 07/14/2024 - 08/12/2024. Monitor Number: [id number]. Hookup: Hookup Tech: Saji Glover. Patient Instructions: Patient given monitor in office during appointment,patient understands directions and use of equipment. Location: [facility]. INDICATIONS: R42 Dizziness and giddiness and R29.6 Repeated falls. FINDINGS: Event Data: Min Rate: 65 BPM Min Rate Timestamp: 2024-07-31 01:18:00 Max Rate: 191 BPM Max Rate Timestamp: 2024-08-11 20:28:00 Mean Rate: 90 BPM Total beats: [id number] Protocol: Number of Diary entries: 30 Automatically [...] with the longest episode 2m 26s, 10:46 PM08/11 and fastest episode 196 BPM, 10:46 PM [...] with the longest episode 2m 26s, 10:46 PM08/11 and fastest episode 196 BPM, 10:46 PM [...] Final Result from Last 3 Months Insurance [facility] MEDIC[facility] ADVANTAGE * Guarantor: Stella Connors Account Type Relation to Patient Date of Phone Billing Address Personal/Family Self 1945 [address] [place] [address] [facility] MEDIC[facility] Address: [address] [address] [place] [address] Care Teams Doughnut Glazier Relationship Specialty Start Date End Date Ruddy Kingsley MD [address] [address] PCP - General Family Medicine 01/22/24
--- OUTSIDE RECORDS SUMMARY | 2024-10-12 13:41 | XMS_ITS | Clinical Summary ---
Author Organization [facility] Medical Office Building B Address [address] [place] [address] Care Team Providers Care Aircraft Rigging And Controls Mechanic Name Role Phone Ruddy Kingsley MD Primary [...] Department Care Team Description 09/03/2024 Patient Message [facility] Primary Care at [address] [phone] Ruddy Kingsley MD Rollator 09/02/2024 Orders Only [facility] Primary Care at [address] [phone] Jeremi Vanessa MD 08/24/2024 Documentation [facility] Cardiology [address] [facility] [address] [place] [address] Glo Irvin MD 08/19/2024 10:15 AM CDT Office Visit [facility] Primary Care at [address] [phone] Ruddy Kingsley MD Essential hypertension (Primary Dx); Pure hypercholesterolemi a; Vertigo; Gastroesophageal reflux disease without esophagitis; SVT (supraventricular tachycardia) 08/07/2024 Telephone [facility] Primary Care at [address] [phone] Ruddy Kingsley MD Med Refill 07/27/2024 Telephone [facility] Primary Care at [address] [phone] Lyudmila Ritter MA 07/21/2024 Telephone [facility] Medical [facility] Primary Care at [address] [phone] Ruddy Kingsley MD 07/19/2024 3:30 PM CDT Office Visit [facility] Medical [facility] Primary Care at [address] [phone] Ruddy Kingsley MD Vertigo (Primary Dx) 07/19/2024 Telephone [facility] Primary Care at [address] [phone] Ruddy Kingsley MD Medication Request 07/19/2024 Documentation [facility] Cardiology [address] [facility] Medical Office Building 3 [address] [place] [address] Glo Irvin MD 07/13/2024 11:30 AM CDT Ancillary Procedure [facility] Cardiology [address] [place] [address] [place] [phone] Dizziness; Falls frequently 07/13/2024 11:15 AM CDT Office Visit [facility] Cardiology [address] [place] [address] [place] [phone] Glo Irvin MD Dizziness (Primary Dx); Syncope, unspecified syncope type; Falls frequently 07/13/2024 Telephone [facility] Cardiology [address] [facility] Medicine 8th [place] [address] [place] [address] Glo Irvin MD from Last 3 Months [...] 08/16/2024 3:13 PM CDT [facility], [address] [place] [address] CARDIAC EVENT MONITOR REPORT Patient Name: STELLA CONNORS : 1945 (79y 3m) Gender: F Study Date: 08/12/2024 11:59:00 PM Ht(Inch): 60 Wt(Lb): 121 BSA: 1.52 Tech: [place] [facility] Order Provider: GLO IRVIN BMI: 23.63 Ref Provider: GLO IRVIN PROCEDURES: Enrollment Period: 07/14/2024 - 08/12/2024. Monitor Number: [id number]. Hookup: Hookup Tech: Saji Glover. Patient Instructions: Patient given monitor in office during appointment, patient understands directions and use of equipment. Location: [facility]. INDICATIONS: R42 Dizziness and giddiness and R29.6 Repeated falls. FINDINGS: Event Data: Min Rate: 65 BPM Min Rate Timestamp: 2024-07-31 01:18:00 Max Rate: 191 BPM Max Rate Timestamp: 2024-08-11 20:28:00 Mean Rate: 90 BPM Total beats: [id number] Protocol: Number of Diary entries: 30 Automatically [...] The PDF can be found in the [facility] Patient chart. Please go to the Cardiology [...] MD PhD - 08/16/2024 [facility], [address] [place] [address] CARDIAC EVENT MONITOR REPORT Patient Name: STELLA CONNORS : 1945 (79y 3m) Gender: F Study Date: 08/12/2024 11:59:00 PM Ht(Inch): 60 Wt(Lb): 121 BSA: 1.52 Tech: Location: [facility] Order Provider: BRET GLO BMI: 23.63 Ref Provider: GLO IRVIN PROCEDURES: Enrollment Period: 07/14/2024 - 08/12/2024. Monitor Number: [id number]. Hookup: Hookup Tech: Saji Glover. Patient Instructions: Patient given monitor in office during appointment,patient understands directions and use of equipment. Location: [facility]. INDICATIONS: R42 Dizziness and giddiness and R29.6 Repeated falls. FINDINGS: Event Data: Min Rate: 65 BPM Min Rate Timestamp: 2024-07-31 01:18:00 Max Rate: 191 BPM Max Rate Timestamp: 2024-08-11 20:28:00 Mean Rate: 90 BPM Total beats: [id number] Protocol: Number of Diary entries: 30 Automatically [...] The PDF can be found in the [facility] Patient chart. Please go to theCardiology tab, [...] Final Result from Last 3 Months Insurance [facility] MEDICARE ADVANTAGE [facility] MEDICARE ADVANTAGE Care Teams Aircraft Rigging And Controls Mechanic Relationship Specialty Start Date End Date Ruddy Kingsley MD [address] [address] PCP - General Family Medicine 01/22/24
--- OUTSIDE RECORDS SUMMARY | 2024-10-12 13:42 | XMS_ITS | Referral Summary ---
Author Organization [facility] Medical Office Building B Address [address] [place] [address] Care Team Providers Care Computer Project Manager Name Role Phone Ruddy Kingsley MD Primary Care Provider [phone] Encounters Date Type Department Care Team Description 09/03/2024 Patient Message [facility] Medical Group Primary Care at [address] [phone] Ruddy Kingsley MD Rollator 09/02/2024 Orders Only [facility] Primary Care at [address] [phone] Jeremi Vanessa MD 08/24/2024 Documentation [facility] Cardiology [address] [facility] [address] [place] [address] Glo Irvin MD 08/19/2024 10:15 AM CDT Office Visit [facility] Primary Care at [address] [phone] Ruddy Kingsley MD Essential hypertension (Primary Dx); Pure hypercholesterolemi a; Vertigo; Gastroesophageal reflux disease without esophagitis; SVT (supraventricular tachycardia) 08/07/2024 Telephone [facility] Primary Care at [address] [phone] Ruddy Kingsley MD Med Refill 07/27/2024 Telephone [facility] Primary Care at [address] [phone] Lyudmila Ritter MA 07/21/2024 Telephone [facility] Primary Care at [address] [phone] Ruddy Kingsley MD 07/19/2024 Telephone [facility] Primary Care at [address] [phone] Ruddy Kingsley MD Medication Request 07/19/2024 Documentation [facility] Cardiology [facility] Medical Office Building 3 [address] [place] [address] Glo Irvin MD 07/19/2024 3:30 PM CDT Office Visit [facility] Medical [facility] Primary Care at [address] [phone] Ruddy Kingsley MD Vertigo (Primary Dx) 07/13/2024 Telephone [facility] Cardiology [address] [facility] Medicine 8th [place] [address] [place] [address] Glo Irvin MD 07/13/2024 11:30 AM CDT Ancillary Procedure [facility] Cardiology [address] [place] [address] [address] [facility] [place] [address] Dizziness; Falls frequently 07/13/2024 11:15 AM CDT Office Visit [facility] Cardiology [address] [facility] [address] [place] [address] Glo Irvin MD Dizziness (Primary Dx); Syncope, [...] 3:13 PM CDT [facility] [address] [facility], [address] [place] [address] CARDIAC EVENT MONITOR REPORT Patient Name: STELLA CONNORS : 1945 (79y 3m) Gender: F Study Date: 08/12/2024 11:59:00 PM Ht(Inch): 60 Wt(Lb): 121 BSA: 1.52 Tech: Location: [facility] Order Provider: GLO IRVIN BMI: 23.63 Ref Provider: GLO IRVIN PROCEDURES: Enrollment Period: 07/14/2024 - 08/12/2024. Monitor Number: [id number]. Hookup: Hookup Tech: Saji Glover. Patient Instructions: Patient given monitor in office during appointment, patient understands directions and use of equipment. Location: [facility]. INDICATIONS: R42 Dizziness and giddiness and R29.6 Repeated falls. FINDINGS: Event Data: Min Rate: 65 BPM Min Rate Timestamp: 2024-07-31 01:18:00 Max Rate: 191 BPM Max Rate Timestamp: 2024-08-11 20:28:00 Mean Rate: 90 BPM Total beats: [id number] Protocol: Number of Diary entries: 30 Automatically [...] The PDF can be found in the [facility] Patient chart. Please go to the [...] MD PhD - 08/16/2024 [facility], [address] [place] [address] CARDIAC EVENT MONITOR REPORT Patient Name: STELLA CONNORS : 1945 (79y 3m) Gender: F Study Date: 08/12/2024 11:59:00 PM Ht(Inch): 60 Wt(Lb): 121 BSA: 1.52 Tech: Location: [facility] Order Provider: GLO IRVIN BMI: 23.63 Ref Provider: GLO IRVIN PROCEDURES: Enrollment Period: 07/14/2024 - 08/12/2024. Monitor Number: [id number]. Hookup: Hookup Tech: Saji Glover. Patient Instructions: Patient given monitor in office during appointment,patient understands directions and use of equipment. Location: [facility]. INDICATIONS: R42 Dizziness and giddiness and R29.6 Repeated falls. FINDINGS: Event Data: Min Rate: 65 BPM Min Rate Timestamp: 2024-07-31 01:18:00 Max Rate: 191 BPM Max Rate Timestamp: 2024-08-11 20:28:00 Mean Rate: 90 BPM Total beats: [id number] Protocol: Number of Diary entries: 30 Automatically [...] The PDF can be found in the [facility] Patient chart. Please go to theCardiology [...] Final Result from Last 3 Months Insurance Care Teams Computer Project Manager Relationship Specialty Start Date End Date Ruddy Kingsley MD [address] [place] [id number] PCP - General Family Medicine 01/22/24
--- NOTE | 2024-10-12 13:46 | ECG_ITS ---
Test Date: 2024-10-12 14:12:07 Measurements Intervals [place] Rate: 93 P: -5 NV: 169 QRS: -13 QRSD: 73 T: 12 QT: 351 QTc: 437 Interpretive Statements SINUS RHYTHM WITH OCCASIONAL SUPRAVENTRICULAR PREMATURE COMPLEXES Compared to ECG 07/08/2024 21:26:12 No significant changes Electronically Signed On 10-13-2024 12:32:46 CDT by Baldomero Price M.D.
--- NOTE | 2024-10-12 14:25 | ED.DIZZY ---
HPI - Dizziness General Chief Complaint: Dizziness <Kaylin Pavon PA-C - Last Filed: 10/12/24 19:21> Stated Complaint: Dizziness <Kaylin Pavon PA-C - Last Filed: 10/12/24 19:21> Time Seen by Provider: 10/12/24 13:34 <Kaylin Pavon PA-C - Last Filed: 10/12/24 19:21> Source: patient <AYSE Garcia Last Filed: 10/12/24 19:21> Mode of arrival: ambulatory <AYSE Garcia Last Filed: 10/12/24 19:21> Limitations: no limitations <AYSE Garcia Last Filed: 10/12/24 19:21> History of Present Illness HPI Narrative: Patient is an 79-year-old female who presents the ED with report of dizziness. Patient reports history of vertigo, reports this current episode began around 3 days ago. She is prescribed meclizine, but states this does not often help her vertigo. She has not tried this today. She reports this morning, she was unable to get up out of bed due to the dizziness, states it felt worse than usual. Worse with standing upright. Denies worsening with head movements/turning. She then prompted here for further evaluation. Reports slight headache currently. Denies focal numbness or weakness, vision changes, chest pain, shortness of breath. Patient is scheduled to began vestibular physical therapy soon, but has performed this in the past w/o improvement. She reports follow-up with neurology in January of this year. <Kaylin Pavon PA-C - Last Filed: 10/12/24 19:21> Related Data Home Medications: Home Medications ?Medication ?Instructions ?Recorded ?Confirmed ?Last Taken ?Type dorzolamide 2 % eye drops 1 drp RIGHT EYE DAILY 07/09/24 07/09/24 Unknown History latanoprost 0.005 % eye drops 1 drp RIGHT EYE BID 07/09/24 07/09/24 Unknown History pantoprazole 40 mg tablet,delayed 40 mg PO Q12H 07/09/24 07/09/24 Unknown History release venlafaxine 150 mg 150 mg PO QPM 07/09/24 07/09/24 Unknown History capsule,extended release 24 hr <Kaylin Pavon PA-C - Last Filed: 10/12/24 19:21> Allergies/Adverse Reactions: Allergies Allergy/AdvReac Type Severity Reaction Status Date / Time No Known Allergies Allergy Verified 10/12/24 14:12 <Kaylin Pavon PA-C - Last Filed: 10/12/24 19:21> Review of Systems Review of Systems: All systems reviewed & are unremarkable except as noted in HPI. <Kaylin Pavon PA-C - Last Filed: 10/12/24 19:21> All systems reviewed & are unremarkable except as noted in HPI and below <Kaylin Pavon PA-C - Last Filed: 10/12/24 19:21> PMFSH Past Medical History Medical History: Medical History Ulna fracture <Kaylin Pavon PA-C - Last Filed: 10/12/24 19:21> Family History Family History: Family History Mother Alzheimer dementia <Kaylin Pavon PA-C - Last Filed: 10/12/24 19:21> Social History Social History: Social History Smoking status: Never smoker Alcohol intake: current Drinks per week: 5 Substance use: never Substance use type: does not use Do You Feel Safe in your Home?: Yes Lack of Transportation: No Lack of Food: Never True Current Housing: I Have Housing Concerned About Future Housing: No Difficulty Paying Gas/Electric Bills: No Difficulty Paying for Meds: No Currently Unemployed: No Education: High School Diploma/GED Difficulty w/ Childcare or Family Care: No Spiritual care concerns: No <Kaylin Pavon PA-C - Last Filed: 10/12/24 19:21> Exam Narrative: GENERAL: Elderly, well appearing, well-nourished, non-toxic, in no acute distress. HEAD: Normocephalic, atraumatic. EYES: PERRL/EOMI, conjunctivae clear bilaterally. No significant nystagmus. TM: No cerumen impaction. No evidence of AOE/AOM. NECK: Supple. No meningeal signs. RESPIRATORY: Airway patent, respirations nonlabored. Clear to auscultation bilaterally, no rales, rhonchi, wheezing. CARDIOVASCULAR: Regular rate and rhythm without murmurs, rubs, or gallops. Peripheral pulses 2+ and equal bilaterally. MUSCULOSKELETAL: Moves all extremities. No gross deformities. SKIN: Warm, dry, normal color. No rashes. NEURO: A&O X3. Speech clear. Follows commands. CN II-XII intact. Sensation grossly intact. Steady gait. No ataxic movements. Strength 5/5 in upper and lower extremities bilaterally. [id number] and [id number] testing intact bilaterally. No pronator drift. Equal video game developer strength bilaterally. PSYCHIATRIC: Appropriate mood and affect. Normal interaction. <Kaylin Pavon PA-C - Last Filed: 10/12/24 19:21> Course DIVINITY PROFESSOR/PA Physician Supervision I agree with midlevel documentation; I performed the medical decision making component of this evaluation. <Leanne Moe MD - Last Filed: 10/12/24 18:45> Vital Signs Vital signs: Vital Signs Temperature 97.5 F L 10/12/24 12:40 Pulse Rate 100 10/12/24 12:40 Respiratory Rate 16 10/12/24 12:40 Blood Pressure 146/100 H 10/12/24 12:40 Pulse Oximetry 98 10/12/24 12:40 Oxygen Delivery Room Air 10/12/24 12:40 Temperature 97.5 F L 10/12/24 12:40 Pulse Rate 94 10/12/24 17:30 Respiratory Rate 20 10/12/24 17:30 Blood Pressure 157/94 H 10/12/24 17:30 Pulse Oximetry 97 10/12/24 17:30 Oxygen Delivery Room Air 10/12/24 12:40 <Kaylin Pavon PA-C - Last Filed: 10/12/24 19:21> Vital Signs Temperature 97.5 F L 10/12/24 12:40 Pulse Rate 100 10/12/24 12:40 Respiratory Rate 16 10/12/24 12:40 Blood Pressure 146/100 H 10/12/24 12:40 Pulse Oximetry 98 10/12/24 12:40 Oxygen Delivery Room Air 10/12/24 12:40 Temperature 97.5 F L 10/12/24 12:40 Pulse Rate 94 10/12/24 17:30 Respiratory Rate 20 10/12/24 17:30 Blood Pressure 157/94 H 10/12/24 17:30 Pulse Oximetry 97 10/12/24 17:30 Oxygen Delivery Room Air 10/12/24 12:40 <Leanne Moe MD - Last Filed: 10/12/24 18:45> MDM - Dizziness MDM Narrative Medical decision making narrative: Patient presented to ED with vertigo, long history of vertigo but reports worse than usual this morning and causing her to have difficulty getting out of bed. Vital signs are stable upon arrival. Patient is neurologically intact. No gross focal deficits or cerebellar signs on my exam. Laboratory studies without significant abnormalities. Stable electrolytes. No leukocytosis. H&H is stable, possibly mildly hemoconcentrated. EKG without concerning ST changes. Does show PVCs. Troponin is undetectable X2. UA with 2+ leuk esterase, 6-10 WBC. No urine bacteria seen. Discussed this with patient. She denies any urinary complaints. Low suspicion for acute UTI. Sent for cx. CTA of brain and carotid was obtained and unremarkable. No significant carotid stenosis. Patient given fluids, meclizine, Benadryl, scopolamine patch. She was able to ambulate a couple of steps in the bathroom to pivot, but still felt extremely dizzy and unsteady. On re-evaluation, patient reports she is feeling absolutely no better. Still extremely dizzy. Does not feel comfortable going home. Will attempt additional medications. Given additional valium, acetaminophen. On repeat eval, patient still reporting 8/10 dizziness. Attempted to ambulate patient with walker and unable to even make it out of the room w/o feeling extremely dizzy, at risk for falls. Patient lives at home alone. Do not feel comfortable sending patient home at this time. Will admit for continued eval. Discussed case with Dr. Espinoza, neurology, will consult. Discussed case with Angelic Inman NP hospitalist, accepted patient for admission. Patient and family in agreement with plan. <Kaylin Pavon PA-C - Last Filed: 10/12/24 19:21> Medical Records Attestation: I reviewed the patient's medical records. <Kaylin Pavon PA-C - Last Filed: 10/12/24 19:21> Lab Data Attestation: I reviewed the patient's lab results. <Kaylin Pavon PA-C - Last Filed: 10/12/24 19:21> Result diagrams: 10/12/24 14:56 10/12/24 14:56 <Kaylin Pavon PA-C - Last Filed: 10/12/24 19:21> Labs: Lab Results 10/12/24 10/12/24 10/12/24 Range/Units 14:56 16:10 17:52 WBC 5.1 (4.5-10.0) K/mm3 RBC 4.13 L (4.2-5.4) M/mm3 Hgb 11.3 L (12.0-15.0) g/dL Hct 36.1 L (37.0-47.0) % MCV 87.4 (80-100) fl MCH 27.4 (26-34) pg MCHC 31.3 L (32-36) g/dl RDW 15.0 H (11.5-14.5) % Plt Count 359 (150-375) k/mm3 MPV 9.6 (7.4-10.4) fl Immature Gran % (Auto) 0.6 H (0-0.5) % Neut % (Auto) 46.5 (45.5-73.1) % Lymph % (Auto) 38.9 (18.3-44.2) % [place] % (Auto) 9.3 H (2.6-8.5) % Eos % (Auto) 3.9 (0-4.4) % Baso % (Auto) 0.8 (0.2-1.2) % Lymph # (Auto) 2.00 (0.9-3.2) K/mm3 [place] # (Auto) 0.5 (0.1-0.6) K/mm3 Eos # (Auto) 0.2 (0-0.3) K/mm3 Baso # (Auto) 0.0 (0.0-0.1) K/mm3 Abs Immat Gran (auto) 0.03 (0.00-0.031) K/mm3 Absolute Neuts (auto) 2.4 (1.3-6.7) K/mm3 Absolute Nucleated RBC 0.000 (0.0-0.012) K/mm3 Nucleated RBC % 0.0 (0.0-0.2) % PT 13.2 (11.1-14.7) Seconds INR 1.0 APTT 25.9 (22.3-36.8) Seconds Sodium 133 L (137-145) mmol/L Potassium 4.3 (3.4-5.0) mmol/L Chloride 98 (98-107) mmol/L Carbon Dioxide 27 (22-30) mmol/L Anion Gap 8 (4-12) mmol/L BUN 14 (7-17) mg/dL Creatinine 0.87 (0.7-1.0) mg/dL Estim Creat Clear Calc 32 ml/min Estimated GFR > 60 (59 - ) Glucose 108 (65-110) mg/dL Calcium 9.5 (8.4-10.2) mg/dL Magnesium 2.0 (1.6-2.3) mg/dL Total Bilirubin 0.5 (0.2-1.3) mg/dL AST 25 (14-36) U/L ALT 10 (6-35) U/L Alkaline Phosphatase 73 (38-126) U/L Troponin I < 0.012 < 0.012 (0.000-0.034) ng/mL Total Protein 7.5 (6.3-8.2) g/dL Albumin 4.1 (3.5-5.1) g/dL Urine Color Yellow (Yellow) Urine Appearance Clear (Clear) Urine pH 7.5 (5.0-9.0) Ur Specific [place] 1.012 (1.001-1.035) Urine Protein Negative (Negative) mg/dL Urine Glucose (UA) Negative (Negative) mg/dL Urine Ketones Negative (Negative) mg/dL Ur Blood (Man) Negative (Negative) Urine Nitrate Negative (Negative) Urine Bilirubin Negative (Negative) Urine Urobilinogen 0.2 (<2.0) mg/dL Leukocyte Esterase Rfl 2+ H (Negative) ZULAY/UL Urine RBC 0-2 (0-2) /hpf Urine WBC 6-10 H (0-3) /hpf Ur Squamous Epith Cells None seen (Few) /hpf Urine Bacteria None seen /hpf Urine Casts 0-2 <Kaylin Pavon PA-C - Last Filed: 10/12/24 19:21> Lab Results 10/12/24 10/12/24 10/12/24 Range/Units 14:56 16:10 17:52 WBC 5.1 (4.5-10.0) K/mm3 RBC 4.13 L (4.2-5.4) M/mm3 Hgb 11.3 L (12.0-15.0) g/dL Hct 36.1 L (37.0-47.0) % MCV 87.4 (80-100) fl MCH 27.4 (26-34) pg MCHC 31.3 L (32-36) g/dl RDW 15.0 H (11.5-14.5) % Plt Count 359 (150-375) k/mm3 MPV 9.6 (7.4-10.4) fl Immature Gran % (Auto) 0.6 H (0-0.5) % Neut % (Auto) 46.5 (45.5-73.1) % Lymph % (Auto) 38.9 (18.3-44.2) % [place] % (Auto) 9.3 H (2.6-8.5) % Eos % (Auto) 3.9 (0-4.4) % Baso % (Auto) 0.8 (0.2-1.2) % Lymph # (Auto) 2.00 (0.9-3.2) K/mm3 [place] # (Auto) 0.5 (0.1-0.6) K/mm3 Eos # (Auto) 0.2 (0-0.3) K/mm3 Baso # (Auto) 0.0 (0.0-0.1) K/mm3 Abs Immat Gran (auto) 0.03 (0.00-0.031) K/mm3 Absolute Neuts (auto) 2.4 (1.3-6.7) K/mm3 Absolute Nucleated RBC 0.000 (0.0-0.012) K/mm3 Nucleated RBC % 0.0 (0.0-0.2) % PT 13.2 (11.1-14.7) Seconds INR 1.0 APTT 25.9 (22.3-36.8) Seconds Sodium 133 L (137-145) mmol/L Potassium 4.3 (3.4-5.0) mmol/L Chloride 98 (98-107) mmol/L Carbon Dioxide 27 (22-30) mmol/L Anion Gap 8 (4-12) mmol/L BUN 14 (7-17) mg/dL Creatinine 0.87 (0.7-1.0) mg/dL Estim Creat Clear Calc 32 ml/min Estimated GFR > 60 (59 - ) Glucose 108 (65-110) mg/dL Calcium 9.5 (8.4-10.2) mg/dL Magnesium 2.0 (1.6-2.3) mg/dL Total Bilirubin 0.5 (0.2-1.3) mg/dL AST 25 (14-36) U/L ALT 10 (6-35) U/L Alkaline Phosphatase 73 (38-126) U/L Troponin I < 0.012 < 0.012 (0.000-0.034) ng/mL Total Protein 7.5 (6.3-8.2) g/dL Albumin 4.1 (3.5-5.1) g/dL Urine Color Yellow (Yellow) Urine Appearance Clear (Clear) Urine pH 7.5 (5.0-9.0) Ur Specific [place] 1.012 (1.001-1.035) Urine Protein Negative (Negative) mg/dL Urine Glucose (UA) Negative (Negative) mg/dL Urine Ketones Negative (Negative) mg/dL Ur Blood (Man) Negative (Negative) Urine Nitrate Negative (Negative) Urine Bilirubin Negative (Negative) Urine Urobilinogen 0.2 (<2.0) mg/dL Leukocyte Esterase Rfl 2+ H (Negative) ZULAY/UL Urine RBC 0-2 (0-2) /hpf Urine WBC 6-10 H (0-3) /hpf Ur Squamous Epith Cells None seen (Few) /hpf Urine Bacteria None seen /hpf Urine Casts 0-2 <Leanne Moe MD - Last Filed: 10/12/24 18:45> Imaging Data Attestation: I personally reviewed and interpreted this imaging study as follows: <Kaylin Pavon PA-C - Last Filed: 10/12/24 19:21> Radiologist's impression: ITS Impressions Head/Neck CTA 10/12/24 15:56 IMPRESSION: 1. Normal CTA head. 2. CTA neck. Percent stenosis per NASCET criteria is 0%. <Kaylin Pavon PA-C - Last Filed: 10/12/24 19:21> ECG Data EKG #1: Attestation: I personally reviewed and interpreted this ECG as follows: <Kaylin Pavon PA-C - Last Filed: 10/12/24 19:21> ECG completion date: 10/12/24 <AYSE Garcia Last Filed: 10/12/24 19:21> ECG completion time: 14:12 <Kaylin Pavon PA-C - Last Filed: 10/12/24 19:21> EKG Interpretation: normal rate (93), sinus rhythm, PVCs and no ST changes <Kaylin Pavon PA-C - Last Filed: 10/12/24 19:21> Discharge Plan Discharge Clinical Impression: Vertigo, Unable to ambulate <AYSE Garcia Last Filed: 10/12/24 19:21> Patient Disposition: Still a Patient <AYSE Garcia Last Filed: 10/12/24 19:21> Condition: Stable <AYSE Garcia Last Filed: 10/12/24 19:21>
[2024-10-12] MEDS: SODIUM CHLORIDE 0.9% IV 1,000 ML 999 ML IV CONT (14:58)
[2024-10-12] MEDS: SCOPOLAMINE 1 MG PATCH 1 PATCH TRANSDERM (15:01)
[2024-10-12] MEDS: MECLIZINE HCL 25 MG TABLET PO (15:02)
[2024-10-12 15:04] LABS: Hematocrit 36.1 % (37.0-47.0); Hemoglobin 11.3 g/dL (12.0-15.0); Immature Granulocyte Percent A 0.6 % (0-0.5); Lymphocytes Absolute Auto 2.00 K/mm3 (0.9-3.2); Mean Corpuscular HGB Conc 31.3 g/dl (32-36); Mean Corpuscular Hemoglobin 27.4 pg (26-34); Mean Corpuscular Volume 87.4 fl (80-100); Nucleated Red Blood Cells Absolute Auto 0.000 K/mm3 (0.0-0.012); Nucleated Red Blood Cells Perc 0.0 % (0.0-0.2); Platelet Count Result 359 k/mm3 (150-375); Red Blood Count 4.13 M/mm3 (4.2-5.4); White Blood Count 5.1 K/mm3 (4.5-10.0)
[2024-10-12 15:19] LABS: INR 1.0; Prothrombin Time 13.2 Seconds (11.1-14.7)
[2024-10-12 15:20] LABS: Partial Thromboplastin Time 25.9 Seconds (22.3-36.8)
[2024-10-12 15:27] LABS: Alanine Aminotransferase 10 U/L (6-35); Albumin Level 4.1 g/dL (3.5-5.1); Alkaline Phosphatase 73 U/L (38-126); Anion Gap 8 mmol/L (4-12); Aspartate Amino Transferase 25 U/L (14-36); Bilirubin,Total 0.5 mg/dL (0.2-1.3); Blood Urea Nitrogen 14 mg/dL (7-17); Calcium 9.5 mg/dL (8.4-10.2); Carbon Dioxide 27 mmol/L (22-30); Chloride 98 mmol/L (98-107); Estimated CRCL calculation 32 ml/min; Estimated Glomerular Filt Rate > 60; Glucose 108 mg/dL (65-110); Magnesium 2.0 mg/dL (1.6-2.3); Potassium 4.3 mmol/L (3.4-5.0); Sodium 133 mmol/L (137-145); Total Protein 7.5 g/dL (6.3-8.2)
[2024-10-12 15:34] LABS: Troponin I < 0.012 ng/mL (0.000-0.034)
[2024-10-12 16:22] LABS: Add Urine Microscopic? YES; Appearance Urine Clear (Clear); Glucose Urine UA Negative (Negative); Leukocyte Esterase Ur 2+ LEU/UL (Negative); Nitrate Urine Negative (Negative); Non Pathogenic Casts 0-2; Specific Grav Ur 1.012 (1.001-1.035)
[2024-10-12] MEDS: ACETAMINOPHEN 500 MG TABLET 1000 MG PO (16:57)
[2024-10-12] MEDS: diazePAM INJ (*CRX) 10 MG/2 ML SYRINGE IV PUSH (16:57)
[2024-10-12] MEDS: BELLADONNA ALK/PHENOB ELIX 10 ML, MAG HYDROX/ALUMINUM HYD/SIMETH 30 ML, LIDOCAINE 2% VI... PO (16:58)
--- NOTE | 2024-10-12 17:49 | ECG_ITS ---
Test Date: 2024-10-12 17:53:25 Measurements Intervals [place] Rate: 105 P: 28 PA: 173 QRS: -11 QRSD: 70 T: 14 QT: 329 QTc: 435 Interpretive Statements SINUS TACHYCARDIA ABNORMAL RHYTHM ECG Compared to ECG 10/12/2024 14:12:07 Sinus rhythm no longer present Electronically Signed On 10-13-2024 12:38:29 CDT by Baldomero Price M.D.
[2024-10-12 18:20] LABS: Troponin I < 0.012 ng/mL (0.000-0.034)
--- NOTE | 2024-10-12 19:03 | PM.IMHP ---
H&P: HPI History of Present Illness Date/Time: 10/12/24 19:03 Chief Complaint: Vertigo Narrative: 79 y/o F with PMH of vertigo, HTN, GERD, and anxiety/depression presents here with dizziness. The patient presents here from home for further evaluation of ongoing dizziness. She reports onset 3 days ago and persistent. She has a prescription for meclizine, however she did not utilize this today, last dose last night, as she reports this is historically not helped her vertigo much. She reports the dizziness is so severe she was unable to get out of bed. She reports the dizziness worsens with standing upright and is accompanied by a mild headache. She denies worsening of vertigo with head movements returning, focal weakness, focal numbness, vision changes, chest pain, shortness of breath, or speech changes. She denies any changes in her dizziness compared to her previous episodes, only change is that today's is more severe. No resulting falls. She has an appt with Neurology in Jan. No new medications or supplements. Initial VS at presentation: 97.5? F, HR 100, RR 16, 146/100, and 98% on RA. ED workup showed: No leukocytosis, hemoglobin 11.3, normal coags, no significant electrolyte derangements, renal function within normal limits, initial troponin negative, UA showed 2+ leuk esterase and 6-10 WBC otherwise unremarkable. Head/neck CTA was unremarkable. Review of Systems Review of Systems: All systems reviewed & are unremarkable except as noted in HPI and below PMFSH Past Medical History Medical History Glaucoma Depression Anxiety Urgency incontinence GERD (gastroesophageal reflux disease) HTN (hypertension) Vertigo Ulna fracture Surgical History Surgical History History of bilateral cataract extraction Family History Family History Mother Alzheimer dementia Social History Social History Smoking status: Never smoker Alcohol intake: current Drinks per week: 5 Substance use: never Substance use type: does not use Do You Feel Safe in your Home?: Yes Lack of Transportation: No Lack of Food: Never True Current Housing: I Have Housing Concerned About Future Housing: No Difficulty Paying Gas/Electric Bills: No Difficulty Paying for Meds: No Currently Unemployed: No Education: High School Diploma/GED Difficulty w/ Childcare or Family Care: No Spiritual care concerns: No Meds Home Medications and Allergies Home Medications ?Medication ?Instructions ?Recorded ?Confirmed ?Type dorzolamide 2 % eye drops 1 drp RIGHT EYE DAILY 07/09/24 10/12/24 History latanoprost 0.005 % eye drops 1 drp RIGHT EYE BID 07/09/24 10/12/24 History pantoprazole 40 mg tablet,delayed 40 mg PO Q12H 07/09/24 10/12/24 History release venlafaxine 150 mg 150 mg PO QPM 07/09/24 10/12/24 History capsule,extended release 24 hr meclizine 12.5 mg tablet 12.5 mg PO DAILY PRN dizziness 10/12/24 10/12/24 History metoprolol succinate 25 mg 25 mg PO DAILY 10/12/24 10/12/24 History tablet,extended release 24 hr Allergies Allergy/AdvReac Type Severity Reaction Status Date / Time No Known Allergies Allergy Verified 10/12/24 14:12 Vital Signs Vital Signs - 24 hr 10/12/24 12:40 10/12/24 15:07 10/12/24 15:31 Temperature 97.5 F L Pulse Rate 100 87 81 Respiratory Rate 16 16 18 Blood Pressure 146/100 H 171/98 H 170/99 H Pulse Oximetry 98 99 99 Oxygen Delivery Room Air 10/12/24 16:30 10/12/24 17:30 10/12/24 18:30 Temperature Pulse Rate 89 94 94 Respiratory Rate 22 H 20 18 Blood Pressure 155/99 H 157/94 H 157/96 H Pulse Oximetry 98 97 97 Oxygen Delivery Exam Const: General: comfortable and no acute distress Other: , female, nontoxic appearance, frail HENMT: Face/Nose/Sinus: Normal nares present Mouth: Yes moist mucous membranes Eyes: General: appearance normal, both eyes and all related structures Sclera: sclerae normal Pupils: Equal, round and reactive pupils present EOM: EOMs intact bilaterally Other: No nystagmus appreciated Resp: Effort & Inspection: normal respiratory effort Auscultation: clear to auscultation bilaterally Cardio: Rate: regular rate Rhythm: regular rhythm Other: S1-S2 present without murmur, rub, ectopy GI: Other: Abdomen soft, nondistended, nontender. Normoactive bowel sounds in all quadrants. Skin: General skin exam: normal color and no rashes or lesions noted Wounds: no wounds Neuro: Speech: normal speech Motor exam (neuro): 5/5 motor strength present throughout Sensory Exam: normal sensation Other: A&O x4 Extrem: General: normal to inspection Psych: Mental Status: mental status grossly normal Affect: normal affect Other: Good insight and judgment, pleasant H&P: Results Labs Labs: Short CBC 10/12/24 Range/Units 14:56 WBC 5.1 (4.5-10.0) K/mm3 Hgb 11.3 L (12.0-15.0) g/dL Hct 36.1 L (37.0-47.0) % Plt Count 359 (150-375) k/mm3 BMP 10/12/24 14:56 Sodium 133 L Potassium 4.3 Chloride 98 Carbon Dioxide 27 BUN 14 Creatinine 0.87 Glucose 108 Calcium 9.5 Cardiac Enzymes 10/12/24 10/12/24 Range/Units 14:56 17:52 Troponin I < 0.012 < 0.012 (0.000-0.034) ng/mL Liver Function 10/12/24 Range/Units 14:56 Total Bilirubin 0.5 (0.2-1.3) mg/dL AST 25 (14-36) U/L ALT 10 (6-35) U/L Alkaline Phosphatase 73 (38-126) U/L Albumin 4.1 (3.5-5.1) g/dL Urine 10/12/24 Range/Units 16:10 Urine Color Yellow (Yellow) Urine Appearance Clear (Clear) Urine pH 7.5 (5.0-9.0) Ur Specific [place] 1.012 (1.001-1.035) Urine Protein Negative (Negative) mg/dL Urine Glucose (UA) Negative (Negative) mg/dL Assessment and Plan Assessment and plan (1) Vertigo: Code(s): R42 - Dizziness and giddiness Status: Acute Assessment and Plan: Vertigo with onset 3 days ago prior to seeking evaluation on 10/12. Did not utilize home meclizine as she reports this has historically not helped her vertigo. Review of chart showed a negative brain MRI in June of 2024. She has an appointment scheduled with Neurology in January of 2025. Despite treatment with Tylenol, Valium, Benadryl, elixir, meclizine, scopolamine patch, and IV fluids the patient reports no changes dizziness. Given her inability to walk and perform her ADLs due to the dizziness the patient was admitted for further workup. Neurology has been consulted. Will hold off on Brain MRI after shared decision making with the patient and her family, would like to await neurology input. Discussed trying steroid course, patient and family agreeable and would like to try as she has previously not benefited from vestibular therapy, meclizine, or other medications. (2) Unable to ambulate: Code(s): R26.2 - Difficulty in walking, not elsewhere classified Status: Acute Assessment and Plan: See above. Care coordination consulted for possible NH placement. (3) HTN (hypertension): Code(s): I10 - Essential (primary) hypertension Status: Acute Assessment and Plan: Chronic, currently 125/70. Arrived 146/100. Continue metoprolol ER 25 mg daily. Monitor. Plan Diet: Heart healthy GI Prophylaxis: Not currently indicated DVT Prophylaxis: SCDs IV fluids: 1 L bolus Lines/Tubes: Peripheral IV Code Status: Full code Quality VTE Prophylaxis VTE prophylaxis: mechanical ordered Hospitalist [facility] Advance Care Plan I have confirmed that the patient's Advanced Care Plan is present, code status is documented, or surrogate decision maker is listed in patient medical record.: Yes Medication Reconciliation I have utilized all available resources to obtain, update and review the patients current medications (includes all prescriptions, OTC, herbals, cannabis, and nutritional supplements).: Yes
--- NOTE | 2024-10-12 20:05 | ADMGEN ---
This patient, Stella Antunez, was admitted to 2 Medical Room 254-01. Patient/family oriented to hospital policies and general routines including ID bracelet, bed and alarms, visiting hours, pain management, procedures, bathroom and other care routines, personal items, smoking policy, room service/diet, and visiting hours. Information on how to activate the Rapid Response Team has been discussed. Patient/Family are encouraged to report perceived risks to care and to ask questions if they do not understand what they are told or what they should do.
[2024-10-12] MEDS: MELATONIN 5 MG TABLET PO (22:36)
[2024-10-12] MEDS: PANTOPRAZOLE 40 MG TABLET PO (22:37)
[2024-10-12] MEDS: LATANOPROST 0.005% OP SOLN 2.5 ML BTL 1 DROP RIGHT EYE (22:38)
[2024-10-13] VITALS (10 sets, daily range): BP systolic 127–145; BP diastolic 60–82; PULSE 62–101; RESP 16–18; TEMP 36.1–36.4; O2SAT 93–95; BMI 19.7
[2024-10-13] MEDS: CALCIUM CARBONATE (TUMS) 500 MG (200 MG ELEMENTAL) PO ×3 (00:37→17:09)
[2024-10-13] MEDS: DORZOLAMIDE HCL 2% OPHTH DROPS 1 DROP RIGHT EYE (08:25)
[2024-10-13] MEDS: LATANOPROST 0.005% OP SOLN 2.5 ML BTL 1 DROP RIGHT EYE ×2 (08:25→20:11)
[2024-10-13] MEDS: MECLIZINE HCL 25 MG TABLET PO ×3 (08:25→17:06)
[2024-10-13] MEDS: PANTOPRAZOLE 40 MG TABLET PO ×2 (08:25→20:11)
[2024-10-13] MEDS: METOPROLOL SUCCINATE EXT REL 25 MG TABCR PO (08:25)
--- NOTE | 2024-10-13 09:16 | PM.IMPN ---
Progress Note: A&P Assessment and Plan (1) Vertigo: Code(s): R42 - Dizziness and giddiness Status: Acute Assessment and Plan: Vertigo with onset 3 days ago prior to seeking evaluation on 10/12. Did not utilize home meclizine as she reports this has historically not helped her vertigo. Review of chart showed a negative brain MRI in June of 2024. She has an appointment scheduled with Neurology in January of 2025. Despite treatment with Tylenol, Valium, Benadryl, elixir, meclizine, scopolamine patch, and IV fluids the patient reports no changes dizziness. Given her inability to walk and perform her ADLs due to the dizziness the patient was admitted for further workup. Neurology has been consulted. Will hold off on Brain MRI after shared decision making with the patient and her family, would like to await neurology input. Discussed trying steroid course, patient and family agreeable and would like to try as she has previously not benefited from vestibular therapy, meclizine, or other medications. - neurology consulted-awaiting recommendations (2) Unable to ambulate: Code(s): R26.2 - Difficulty in walking, not elsewhere classified Status: Acute Assessment and Plan: See above. Care coordination consulted for possible NH placement. pt/ot ordered (3) HTN (hypertension): Code(s): I10 - Essential (primary) hypertension Status: Acute Assessment and Plan: Chronic, currently 125/70. Arrived 146/100. Continue metoprolol ER 25 mg daily. Monitor. Plan Diet: Heart healthy GI Prophylaxis: Not currently indicated DVT Prophylaxis: SCDs IV fluids: 1 L bolus Lines/Tubes: Peripheral IV Code Status: Full code Time Spent With Patient Time with patient: 25 - 35 minutes Subjective Date/time seen: 10/13/24 09:16 Interval history: 79 y/o F with PMH of vertigo, HTN, GERD, and anxiety/depression presents here with dizziness. The patient presents here from home for further evaluation of ongoing dizziness. She reports onset 3 days ago and persistent. She has a prescription for meclizine, however she did not utilize this today, last dose last night, as she reports this is historically not helped her vertigo much. She reports the dizziness is so severe she was unable to get out of bed. She reports the dizziness worsens with standing upright and is accompanied by a mild headache. She denies worsening of vertigo with head movements returning, focal weakness, focal numbness, vision changes, chest pain, shortness of breath, or speech changes. She denies any changes in her dizziness compared to her previous episodes, only change is that today's is more severe. No resulting falls. She has an appt with Neurology in Jan. No new medications or supplements. Initial VS at presentation: 97.5? F, HR 100, RR 16, 146/100, and 98% on RA. ED workup showed: No leukocytosis, hemoglobin 11.3, normal coags, no significant electrolyte derangements, renal function within normal limits, initial troponin negative, UA showed 2+ leuk esterase and 6-10 WBC otherwise unremarkable. Head/neck CTA was unremarkable. 10/13- pt is seen and examined. Neurology was consulted and waiting for recommendations. Pt vomited earlier but now feels ok. Review of Systems Review of Systems: All systems reviewed & are unremarkable except as noted in HPI and below Exam Const: General: comfortable and no acute distress Other: frail HENMT: Face/Nose/Sinus: Normal nares present Mouth: Yes moist mucous membranes Eyes: General: appearance normal, both eyes and all related structures Sclera: sclerae normal Pupils: Equal, round and reactive pupils present EOM: EOMs intact bilaterally Other: No nystagmus appreciated Resp: Effort & Inspection: normal respiratory effort Auscultation: clear to auscultation bilaterally Cardio: Rate: regular rate Rhythm: regular rhythm Other: S1-S2 present without murmur, rub, ectopy GI: Other: Abdomen soft, nondistended, nontender. Normoactive bowel sounds in all quadrants. Skin: General skin exam: normal color and no rashes or lesions noted Wounds: no wounds Neuro: Cranial nerves: Yes Equal, round and reactive pupils present Speech: normal speech Motor exam (neuro): 5/5 motor strength present throughout Sensory Exam: normal sensation Other: A&O x4 Extrem: General: normal to inspection Psych: Mental Status: mental status grossly normal Affect: normal affect Other: Good insight and judgment, pleasant Objective Data Vital Signs Vital Signs: Vital Signs - 24 hr 10/12/24 12:40 10/12/24 15:07 10/12/24 15:31 Temperature 97.5 F L Pulse Rate 100 87 81 Respiratory Rate 16 16 18 Blood Pressure 146/100 H 171/98 H 170/99 H Pulse Oximetry 98 99 99 Oxygen Delivery Room Air 10/12/24 16:30 10/12/24 17:30 10/12/24 18:30 Temperature Pulse Rate 89 94 94 Respiratory Rate 22 H 20 18 Blood Pressure 155/99 H 157/94 H 157/96 H Pulse Oximetry 98 97 97 Oxygen Delivery 10/12/24 19:15 10/12/24 20:00 10/12/24 20:00 Temperature 97.8 F Pulse Rate 100 108 H Respiratory Rate 16 20 Blood Pressure 144/100 H 125/70 Pulse Oximetry 100 96 Oxygen Delivery Room Air 10/12/24 20:00 10/13/24 00:00 10/13/24 03:17 Temperature 97.6 F Pulse Rate 116 H 82 98 Respiratory Rate 18 Blood Pressure 145/82 H Pulse Oximetry 95 Oxygen Delivery 10/13/24 04:00 10/13/24 08:25 10/13/24 08:32 Temperature Pulse Rate 93 93 95 Respiratory Rate Blood Pressure Pulse Oximetry Oxygen Delivery Intake/Output Intake/Output: Intake & Output 10/10/24 10/11/24 10/12/24 10/13/24 23:59 23:59 23:59 23:59 Intake Total 1000 530 Output Total 200 Balance 1000 330 Meds/Results Medications: Active Medications Generic Name Dose Route Start Last Admin Trade Name Freq PRN Reason Stop Dose Admin Acetaminophen 650 mg 10/12/24 18:40 Acetaminophen 325 Mg Tablet PO Q4H PRN Mild Pain (1-3) or Fever Calcium Carbonate 200 mg 10/13/24 00:25 10/13/24 00:37 Calcium Carbonate (Tums) 500 Mg (200 Mg Elemental) PO 200 mg Q6H PRN Administration Indigestion Dextrose 12.5 gm 10/12/24 18:40 Dextrose 50% 25 Gm/50 Ml Syringe IV PUSH PRN PRN Hypoglycemia Protocol Dorzolamide HCl 1 drop 10/13/24 09:00 10/13/24 08:25 Dorzolamide Hcl 2% Ophth Drops RIGHT EYE 1 drop DAILY JANE Administration Glucagon 1 mg 10/12/24 18:40 Glucagon For Inj 1 Mg Vial IM PRN PRN Hypoglycemia Protocol Glucose 15 gm 10/12/24 18:40 Glucose Oral Gel 15 Gm Of Glucse In 37.5 Gm Tube PO PRN PRN Hypoglycemia Protocol Dextrose 1,000 mls @ 100 mls/hr 10/12/24 18:40 Dextrose 5% 1,000 Ml IVPB PRN PRN Hypoglycemia Protocol Latanoprost 1 drop 10/12/24 22:05 10/13/24 08:25 Latanoprost 0.005% Op Soln 2.5 Ml Btl RIGHT EYE 1 drop Q12HR JANE Administration Meclizine HCl 25 mg 10/13/24 09:00 10/13/24 08:25 Meclizine Hcl 25 Mg Tablet PO 25 mg TID JANE Administration Melatonin 5 mg 10/12/24 20:44 10/12/24 22:36 Melatonin 5 Mg Tablet PO 5 mg HS PRN Administration Insomnia Metoprolol Succinate 25 mg 10/13/24 09:00 10/13/24 08:25 Metoprolol Succinate Ext Rel 25 Mg Tabcr PO 25 mg DAILY JANE Administration Ondansetron HCl 4 mg 10/12/24 18:40 Ondansetron Inj 4 Mg/2 Ml Vial IV PUSH Q4H PRN Nausea Pantoprazole Sodium 40 mg 10/12/24 22:05 10/13/24 08:25 Pantoprazole 40 Mg Tablet PO 40 mg Q12HR [facility] Administration Prednisone 40 mg 10/12/24 20:45 10/13/24 08:25 Prednisone 20 Mg Tablet PO 40 mg DAILY@0800 [facility] Administration Venlafaxine HCl 150 mg 10/13/24 18:00 Venlafaxine Hcl Xr 75 Mg Cap.Er.24h PO QPM [facility] Radiology Results: ITS Impressions Head/Neck CTA 10/12/24 15:56 IMPRESSION: 1. Normal CTA head. 2. CTA neck. Percent stenosis per NASCET criteria is 0%. Labs Labs: Laboratory Results - last 24 hr 10/12/24 10/12/24 10/12/24 14:56 16:10 17:52 WBC 5.1 RBC 4.13 L Hgb 11.3 L Hct 36.1 L MCV 87.4 MCH 27.4 MCHC 31.3 L RDW 15.0 H Plt Count 359 MPV 9.6 Immature Gran % (Auto) 0.6 H Neut % (Auto) 46.5 Lymph % (Auto) 38.9 Cameron % (Auto) 9.3 H Eos % (Auto) 3.9 Baso % (Auto) 0.8 Lymph # (Auto) 2.00 Cameron # (Auto) 0.5 Eos # (Auto) 0.2 Baso # (Auto) 0.0 Abs Immat Gran (auto) 0.03 Absolute Neuts (auto) 2.4 Absolute Nucleated RBC 0.000 Nucleated RBC % 0.0 PT 13.2 INR 1.0 APTT 25.9 Sodium 133 L Potassium 4.3 Chloride 98 Carbon Dioxide 27 Anion Gap 8 BUN 14 Creatinine 0.87 Estim Creat Clear Calc 32 Estimated GFR > 60 Glucose 108 Calcium 9.5 Magnesium 2.0 Total Bilirubin 0.5 AST 25 ALT 10 Alkaline Phosphatase 73 Troponin I < 0.012 < 0.012 Total Protein 7.5 Albumin 4.1 Urine Color Yellow Urine Appearance Clear Urine pH 7.5 Ur Specific [place] 1.012 Urine Protein Negative Urine Glucose (UA) Negative Urine Ketones Negative Ur Blood (Man) Negative Urine Nitrate Negative Urine Bilirubin Negative Urine Urobilinogen 0.2 Leukocyte Esterase Rfl 2+ H Urine RBC 0-2 Urine WBC 6-10 H Ur Squamous Epith Cells None seen Urine Bacteria None seen Urine Casts 0-2 Quality VTE Prophylaxis VTE prophylaxis: mechanical ordered
[2024-10-13] MEDS: ONDANSETRON INJ 4 MG/2 ML VIAL IV PUSH (09:40)
--- NOTE | 2024-10-13 11:48 | P.CONNEU_ITS ---
Assessment and Plan Assessment and plan (1) Benign paroxysmal positional vertigo: Code(s): H81.10 - Benign paroxysmal vertigo, unspecified ear Status: Acute Plan 1 dizziness secondary benign paroxysmal vertigo. 2. Neurologically she is stable except that she has mild underlying dementia. 3 history of ongoing mild depression 4 current alcohol intaker. 5. Possibility of aneurysm, major vascular involvement, and brain to on recent MRI has been ruled out. Consult date: 10/13/24 HPI: Stella Antunez is a 79 year old female Admitted to the hospital through the emergency room for the complaint of dizziness in addition to the history of vertigo and history of this particular episode starting about 3 days ago. Patient has meclizine prescribed by the physician but was not helping for this particular episode and also she has not particularly tried on the day of visit to the ER she was unable to get out of the bed, reported she feels worse even when she is standing or she moves her head from side to side. She had no associated headache or weakness or numbness of 1 side or other side. Her medications included when left vaccine 150mg every evening, and local eye drops. She is not allergic to any medications. She has never smoker. She is currently drinking 5 drinks per week. Her initial exam in the emergency room was nonfocal. Vital signs were normal. CBC was normal, BMP was normal, and the mast scan was normal too, she had a negative CT A of the head and neck in the emergency room, and she had normal EKG without any atrial fibrillation in the emergency room, he had an MRI of the brain in June of this year which was only consistent with mild to moderate diffuse volume loss involving the pontine and cerebral white matter consistent with the chronic small-vessel ischemic disease. At present she is receiving meclizine 12.5mg p.r. and has been continued her on home medication. Today's visit she is anxious to go home she lives alone and quite stable Review of Systems 2 Review of Systems: All systems reviewed & are unremarkable except as noted in HPI and below PMFSH Past Medical History Medical History Glaucoma Depression Anxiety Urgency incontinence GERD (gastroesophageal reflux disease) HTN (hypertension) Vertigo Ulna fracture Surgical History Surgical History History of bilateral cataract extraction Family History Family History Mother Alzheimer dementia Social History Social History Smoking status: Never smoker Alcohol intake: current Drinks per week: 5 Substance use: never Substance use type: does not use Do You Feel Safe in your Home?: Yes Lack of Transportation: No Lack of Food: Never True Current Housing: I Have Housing Concerned About Future Housing: No Difficulty Paying Gas/Electric Bills: No Difficulty Paying for Meds: No Currently Unemployed: No Education: High School Diploma/GED Difficulty w/ Childcare or Family Care: No Spiritual care concerns: No Meds Home Medications and Allergies Home Medications ?Medication ?Instructions ?Recorded ?Confirmed ?Type dorzolamide 2 % eye drops 1 drp RIGHT EYE DAILY 07/09/24 10/12/24 History latanoprost 0.005 % eye drops 1 drp RIGHT EYE BID 07/09/24 10/12/24 History pantoprazole 40 mg tablet,delayed 40 mg PO Q12H 07/09/24 10/12/24 History release venlafaxine 150 mg 150 mg PO QPM 07/09/24 10/12/24 History capsule,extended release 24 hr meclizine 12.5 mg tablet 12.5 mg PO DAILY PRN dizziness 10/12/24 10/12/24 History metoprolol succinate 25 mg 25 mg PO DAILY 10/12/24 10/12/24 History tablet,extended release 24 hr Allergies Allergy/AdvReac Type Severity Reaction Status Date / Time No Known Allergies Allergy Verified 10/12/24 14:12 Vital Signs Vital Signs - 24 hr 10/12/24 12:40 10/12/24 15:07 10/12/24 15:31 Temperature 36.4 C L Pulse Rate 100 87 81 Respiratory Rate 16 16 18 Blood Pressure 146/100 H 171/98 H 170/99 H Pulse Oximetry 98 99 99 Oxygen Delivery Room Air 10/12/24 16:30 10/12/24 17:30 10/12/24 18:30 Temperature Pulse Rate 89 94 94 Respiratory Rate 22 H 20 18 Blood Pressure 155/99 H 157/94 H 157/96 H Pulse Oximetry 98 97 97 Oxygen Delivery 10/12/24 19:15 10/12/24 20:00 10/12/24 20:00 Temperature 36.6 C Pulse Rate 100 108 H Respiratory Rate 16 20 Blood Pressure 144/100 H 125/70 Pulse Oximetry 100 96 Oxygen Delivery Room Air 10/12/24 20:00 10/13/24 00:00 10/13/24 03:17 Temperature 36.4 C Pulse Rate 116 H 82 98 Respiratory Rate 18 Blood Pressure 145/82 H Pulse Oximetry 95 Oxygen Delivery 10/13/24 04:00 10/13/24 08:25 10/13/24 08:32 Temperature Pulse Rate 93 93 95 Respiratory Rate Blood Pressure Pulse Oximetry Oxygen Delivery Exam 2 Narrative: revealed her to be awake alert cooperative in no obvious acute distress, his speech was not dysphasic not dysarthric not dysphonic, head normocephalic with no cranial bruit, neck supple with no restriction and no cervical bruit, heart was regular with no murmur, lungs clear to auscultation with no rhonchi or crepitations, abdomen is soft nontender with normal bowel sounds, neurologically she was awake alert ,was able to relate to the physician completely, her speech was not dysphasic not dysarthric not dysphonic, pupils were round regular ,hernandez of the vision full ,extraocular movements were full, facial sensation was intact ,face symmetrical ,tongue midline ,motor examination revealed normal strength and tone without evidence of any cogwheeling rigidity, reflexes were symmetrical and plantars were downgoing there was no evidence of gross cerebellar deficit. Results Labs 10/12/24 14:56 10/12/24 14:56 Labs: Short CBC 10/12/24 Range/Units 14:56 WBC 5.1 (4.5-10.0) K/mm3 Hgb 11.3 L (12.0-15.0) g/dL Hct 36.1 L (37.0-47.0) % Plt Count 359 (150-375) k/mm3 BMP 10/12/24 14:56 Sodium 133 L Potassium 4.3 Chloride 98 Carbon Dioxide 27 BUN 14 Creatinine 0.87 Glucose 108 Calcium 9.5 Cardiac Enzymes 10/12/24 10/12/24 Range/Units 14:56 17:52 Troponin I < 0.012 < 0.012 (0.000-0.034) ng/mL Liver Function 10/12/24 Range/Units 14:56 Total Bilirubin 0.5 (0.2-1.3) mg/dL AST 25 (14-36) U/L ALT 10 (6-35) U/L Alkaline Phosphatase 73 (38-126) U/L Albumin 4.1 (3.5-5.1) g/dL Urine 10/12/24 Range/Units 16:10 Urine Color Yellow (Yellow) Urine Appearance Clear (Clear) Urine pH 7.5 (5.0-9.0) Ur Specific [place] 1.012 (1.001-1.035) Urine Protein Negative (Negative) mg/dL Urine Glucose (UA) Negative (Negative) mg/dL
--- NOTE | 2024-10-13 13:11 | P.CDI_ITS ---
CDI Query Clarification Request BMI: 19.7 Nutritional Diagnostic Statement: Please refer to the comprehensive nutrition assessment for further information. If you agree with diagnosis of Severe Protein Calorie Malnutrition as related to inadequate protein energy intake in setting of chronic disease as evidenced by significant weight loss of 26% in 1 year, ,minimal oral intake > 1-2 months; moderate subcutaneous fat loss (orbital fat pads) and moderate muscle wasting (temporalis). Please specify severity if known: * Mild * Moderate * Severe * Other/Unknown <Key Watts RN - Last Filed: 10/13/24 13:12> Clarified Diagnosis Clarified Diagnosis: mild <Kaila Brooke APRN - Last Filed: 10/13/24 14:05>
[2024-10-13] MEDS: VENLAFAXINE HCL XR 75 MG CAP.ER.24H 150 MG PO (17:06)
[2024-10-13] MEDS: MELATONIN 5 MG TABLET PO (20:11)
[2024-10-14] VITALS (7 sets, daily range): BP systolic 118–128; BP diastolic 70–73; PULSE 63–85; RESP 17–18; TEMP 36.3–36.4; O2SAT 95–96
[2024-10-14] MEDS: PANTOPRAZOLE 40 MG TABLET PO (08:50)
[2024-10-14] MEDS: MECLIZINE HCL 25 MG TABLET PO ×2 (08:50→12:33)
[2024-10-14] MEDS: METOPROLOL SUCCINATE EXT REL 25 MG TABCR PO (08:50)
[2024-10-14] MEDS: DORZOLAMIDE HCL 2% OPHTH DROPS 1 DROP RIGHT EYE (08:52)
[2024-10-14] MEDS: LATANOPROST 0.005% OP SOLN 2.5 ML BTL 1 DROP RIGHT EYE (08:52)
--- NOTE | 2024-10-14 13:22 | P.DS_ITS ---
DS: Admitting Diagnosis Discharge Date 10/14 Admitting Diagnosis dizziness DS: Discharge Diagnosis Discharge Diagnosis (1) Vertigo: Code(s): R42 - Dizziness and giddiness Status: Acute (2) Unable to ambulate: Code(s): R26.2 - Difficulty in walking, not elsewhere classified Status: Acute (3) HTN (hypertension): Code(s): I10 - Essential (primary) hypertension Status: Acute DS: Summary Hospital Course Hospital Course: 79 y/o F with PMH of vertigo, HTN, GERD, and anxiety/depression presents here with dizziness. The patient presents here from home for further evaluation of ongoing dizziness. She reports onset 3 days ago and persistent. She has a prescription for meclizine, however she did not utilize this today, last dose last night, as she reports this is historically not helped her vertigo much. She reports the dizziness is so severe she was unable to get out of bed. She reports the dizziness worsens with standing upright and is accompanied by a mild headache. She denies worsening of vertigo with head movements returning, focal weakness, focal numbness, vision changes, chest pain, shortness of breath, or speech changes. She denies any changes in her dizziness compared to her previous episodes, only change is that today's is more severe. No resulting falls. She has an appt with Neurology in Jan. No new medications or supplements. Initial VS at presentation: 97.5? F, HR 100, RR 16, 146/100, and 98% on RA. ED workup showed: No leukocytosis, hemoglobin 11.3, normal coags, no significant electrolyte derangements, renal function within normal limits, initial troponin negative, UA showed 2+ leuk esterase and 6-10 WBC otherwise unremarkable. Head/neck CTA was unremarkable. Neurology was consulted and recommendations reviewed: 1 dizziness secondary benign paroxysmal vertigo. 2. Neurologically she is stable except that she has mild underlying dementia. 3 history of ongoing mild depression 4 current alcohol intaker. 5. Possibility of aneurysm, major vascular involvement, and brain to on recent MRI has been ruled out. Also noted that pt drinks about 5 alcoholic drinks a week. Also taking metoprolol for htn. discussed that she need to cut down and stop all together alcohol and discuss HTN regimen. She was started on steroid burst- 3 doses so far, still needs two more- rx sent. Status at Discharge Functional status at discharge: independent ambulation Overall status at discharge: patient is progressing back to baseline Time Spent with Patient Time attestation: Total time spent providing and/or coordinating discharge services: Time spent: Greater than 30 minutes Exam Const: General: comfortable and no acute distress Other: frail HENMT: Face/Nose/Sinus: Normal nares present Mouth: Yes moist mucous membranes Eyes: General: appearance normal, both eyes and all related structures Sclera: sclerae normal Pupils: Equal, round and reactive pupils present EOM: EOMs intact bilaterally Other: No nystagmus appreciated Resp: Effort & Inspection: normal respiratory effort Auscultation: clear to auscultation bilaterally Cardio: Rate: regular rate Rhythm: regular rhythm Other: S1-S2 present without murmur, rub, ectopy GI: Other: Abdomen soft, nondistended, nontender. Normoactive bowel sounds in all quadrants. Skin: General skin exam: normal color and no rashes or lesions noted Wounds: no wounds Neuro: Cranial nerves: Yes Equal, round and reactive pupils present Speech: normal speech Motor exam (neuro): 5/5 motor strength present throughout Sensory Exam: normal sensation Other: A&O x4 Extrem: General: normal to inspection Psych: Mental Status: mental status grossly normal Affect: normal affect Other: Good insight and judgment, pleasant Discharge Plan Discharge Attending physician on discharge: Sohan Pierce Consulting providers: Mike Espinoza Discharging Clinician: Kaila Brooke Patient Disposition: Home Activity: july shower Diet: regular Discharge Instructions: You were admitted for dizziness. Neurology was consulted and recommendations reviewed: 1 dizziness secondary benign paroxysmal vertigo. 2. Neurologically is stable except mild underlying dementia. 3 history of ongoing mild depression 4 current alcohol Also noted that pt drinks about 5 alcoholic drinks a week. Also taking metoprolol for htn. As discussed, please cut down and stop all together alcohol and discuss HTN regimen with your PCP. WE started prednisone for you. Please take it for two more days to complete the course. Patient Instructions: Antibiotic Form Patient Language: [place] Stand Alone Forms: General Discharge Information Follow-up/Referrals: Teetee,Ruddy Davis MD [Primary Care Provider] - 2 Weeks Discharge Medications: New prednisone 20 mg Tablet 40 mg PO DAILY@0800 Qty: 2 0RF ondansetron 4 mg tablet,disintegrating 4 mg PO Q8H PRN (Reason: nausea and vomiting) Qty: 10 0RF Continued venlafaxine 150 mg capsule,extended release 24hr 150 mg PO QPM pantoprazole 40 mg tablet,delayed release (DR/EC) 40 mg PO Q12H latanoprost 0.005 % drops 1 drp RIGHT EYE BID dorzolamide 2 % drops 1 drp RIGHT EYE DAILY meclizine 12.5 mg tablet 12.5 mg PO DAILY PRN (Reason: dizziness) metoprolol succinate 25 mg tablet extended release 24 hr 25 mg PO DAILY Date of admission: 10/12/24 18:40 Primary Care Provider: Teetee,Ruddy Davis Admitting Provider: Sohan Pierce Attending physician on admission: Sohan Pierce Condition: Stable Quality VTE Prophylaxis VTE prophylaxis: mechanical ordered
== END 2024-10-14 15:41 | disposition home or self-care (01) ==
LOC: ANHED 18:31 → ANH2MED 19:05
PROVIDERS: Admitting Provider Internal Medicine; Emergency Provider Physician Assistant; PCP Family Medicine; Visit Provider Internal Medicine
DX: H81.10 Benign paroxysmal vertigo, unspecified ear (principal); R26.2 Difficulty in walking, not elsewhere classified; I10 Essential (primary) hypertension; K21.9 Gastro-esophageal reflux disease without esophagitis; F41.9 Anxiety disorder, unspecified; F32.A Depression, unspecified; F03.A0 Unspecified dementia, mild, without behavioral disturbance, psychotic disturbance, mood disturbance, and anxiety; F10.90 Alcohol use, unspecified, uncomplicated; H40.9 Unspecified glaucoma; Z79.899 Other long term (current) drug therapy; Z98.42 Cataract extraction status, left eye; Z98.41 Cataract extraction status, right eye
CPT/HCPCS: 36415; 70496; 70498; 80053; 81001; 83735; 84484; 85025; 85610; 85730; 87086; 93005; 96361; 96374; 96375; 97161; 99285; A9270; G0378; J1200; J2405; J3360; J7030; J7512; Q9967

== ENCOUNTER 2024-12-27 12:30 | Outpatient (RCR) | payer MEDICARE, SELFPAY ==
--- NOTE | 2024-09-29 09:22 | OPREHPOC ---
Outpatient Therapy Plan of Care This is a Multidisciplinary Plan of Care that may contain components documented by all disciplines (PT, OT, and ST.) PT Problem 1 PT Problem #1 Knowledge Deficit PT Goal 1 Goal / Goal Update *independent with HEP Target Visit 10 PT Problem 2 PT Problem #2 Impaired Strength PT Goal 1 Goal / Goal Update 1* increase strength of R and L LE to gross of 4/5 2* pt transfer sit/stand with use of 1 UE and controlled motions Target Visit 10 PT Problem 3 PT Problem #3 Impaired Functional Mobility PT Goal 1 Goal / Goal Update 1* 5 reps sit/stand time of 21 seconds 2* 2 minute walking test distance of 300' with rollator 3* pt up/down 4 steps with one hand railing, independent 4* pt report going out in community and using rollator 5* pt report NO falls Target Visit 10 PT Problem 4 PT Problem #4 Impaired Vestibular System PT Goal 1 Goal / Goal Update pt perform without any spinning sensation/ dizziness reported: 1* pt transfer supine to sit 2* in standing, lean forward with trunk and return to upright posture 3* further assessment & treatment of vestibular system and progression of activity level Target Visit 10
--- NOTE | 2024-09-29 09:23 | PTOPEVAL1 ---
Assessment and note entered by Iesha De Jesus, PT Evaluation Information Assessment Status Evaluation ICD-10 Condition Codes (PT) Repeated falls R29.6,Difficulty Walking R26.2, Abnormalities of gait and mobility R26.9,Weakness R53.1,Dizziness and Giddiness R42 Onset 11-30-2023 Subjective Information intermittent dizziness; take meclazine- sometimes help; had some vestibular treatment with HH therapy, do the self maneuver at home and not really help; in the past 6 months have had 8 falls- tends to occur with looking down and fall backwards; use rollator, PRN use in her condo & use it with going out of home; for grocery store and shopping- use motorized cart does not go out with her friends' from lunch due to these issues. also- major changes in her life recently-- , sold her home and moved to a different city to be closer to her children. have been to a appeals nurse, had a full check up with 30 day monitor and everything is OK with my heart. symptoms: have to reach out for something, loss of balance and go down; some times room is spinning; meds: meclazine, for acid relux, for depression; recently taken off BP med due to dizziness activity: live alone, does not drive due to dizziness; family assist with driving and heavy tasks; Reported Pain Level Pain Score 0: Self Report Assessment PT Clinical Summary Stella has the diagnosis of unsteady gait, falls, vertigo, syncopy. She lives alone, with local family support and assist, uses a rollator for ambulation and for distances with shopping, uses the motorized scooter. Reports decreased community and social outings due to decreased mobility. Dizziness Handicap Index self rating of 46% limitation in activity level. She has had recent hospitalization and HH therapy due to fall with R ulnar styloid fracture/ non surgical. The HH therapist did some vestibular treatment and it did not really help. She has been cleared by cardiology, with a decrease in HTN meds and 30 day heart monitor. Medical history includes risk factors for vestibular and balance issues: chronic LBP, glaucoma with decreased vision, weakness of LE's, multiple meds. With the subjective history she describes her symptoms as: unsteady when stand up, have to reach out for something to steady herself, legs give out and she falls, sometimes room spinning/dizzy. With the evaluation: she has weakness of LE's, poor sit/stand transfer with use of both hands on chair and plopping with sitting down; 5 reps sit/ stand time of 25 seconds; 2 minute walking test distance of 225' with rollator; the only activity that elicited spinning reports was with supine to sit position change. Skilled PT services are indicated for therapeutic exercises and activity to increase LE strength, transfer and gait skills, with education for HEP and safety with mobility. With further assessment and treatment of vestibular symptoms. Plan of Care Interventions Gait Training,Neuro Re-education,Patient/Caregiver Education,Therapeutic Activities,Therapeutic Exercise PT Services Indicated Yes Treatment Frequency and 1-2x/wk for 10 visits Duration These treatments will address the objective and functional deficits as defined above. The patient will be advanced safely and appropriately in order for the patient to progress towards his/her prior level of function. Additional exercises will be introduced and as well as a comprehensive home exercise program upon discharge, if needed, ?to ensure carryover of functional gains achieved in the clinic. This treatment plan has been reviewed and agreement upon by the patient.
--- NOTE | 2024-11-02 15:22 | PCPTNOTE ---
pt called and canceled today's reevaluation appt.
--- NOTE | 2024-11-18 11:50 | OPREHPOC ---
Outpatient Therapy Plan of Care This is a Multidisciplinary Plan of Care that may contain components documented by all disciplines (PT, OT, and ST.) PT Problem 1 PT Problem #1 Knowledge Deficit PT Goal 1 Goal / Goal Update *independent with HEP 11-18-24 progress goal met continue to progress HEP and education for safety Target Visit 15 PT Problem 2 PT Problem #2 Impaired Strength PT Goal 1 Goal / Goal Update 1* increase strength of R and L LE to gross of 4/5 2* pt transfer sit/stand with use of 1 UE and controlled motions 11-18-24 progress goals not met; #1 4-5/ and #2 uses both UE continue towards goals Target Visit 15 PT Problem 3 PT Problem #3 Impaired Functional Mobility PT Goal 1 Goal / Goal Update 1* 5 reps sit/stand time of 21 seconds 2* 2 minute walking test distance of 300' with rollator 3* pt up/down 4 steps with one hand railing, independent 4* pt report going out in community and using rollator 5* pt report NO falls 11-18-24 progress goals not met; #1 is 26 seconds; #2 is 225'; #3 use of bilateral hand rails #4 limited outings #5 6 falls since starting therapy continue towards goals Target Visit 15 PT Problem 4 PT Problem #4 Impaired Vestibular System PT Goal 1 Goal / Goal Update pt perform without any spinning sensation/ dizziness reported: 1* pt transfer supine to sit 2* in standing, lean forward with trunk and return to upright posture 3* further assessment & treatment of vestibular system and progression of activity level 11-18-24 progress goal 2 met; continue towards goals Target Visit 15
--- NOTE | 2024-11-18 11:51 | PTOPPROG ---
Assessment and note entered by Iesha De Jesus, PT Progress Report Assessment Status Progress ICD-10 Condition Codes (PT) Repeated falls R29.6,Difficulty Walking R26.2, Abnormalities of gait and mobility R26.9,Weakness R53.1,Dizziness and Giddiness R42 Onset 11-30-2023 Subjective Information have 4-5 falls since coming for therapy, but have not had any in 2 weeks; falls with bending over to pick something up off floor; she does have a long handled grabber, but not use; have gone out into the community with family only, not very often due to fall and fear of falling; take meclazine about once/day with the rest of her medicines; at home, does not always use the walker in her house, hold onto furniture; symptoms: wobbly, off balance; have to hold on to keep from falling; dizzy; Assessment PT Clinical Summary Stella has received 5 PT sessions. She called and canceled one appointment. With today's assessment: Dizziness Handicap Index rating of 60% limitation in activity level; symptoms are of off balance, wobbly, weakness, dizzy, head feels funny; with BPPV testing, has visual changes without nystagmus; gross LE strength of 4-/5; sit/stand transfer with use of both UE's and decreased initial standing balance without UE support- tends to lean posterior; 2 minute walking test distance of 225' with rollator ; on 4 steps uses bilateral hand rails; 5 reps sit/stand time of 26 seconds; Compared to the initial evaluation, she has made minimal changes. Continues to have falls-- but reports in the past 2 weeks has not had any and is taking meclazine daily. The goals were partially met. Continue PT to further increase LE strength, gait and balance skills for safety with mobility. And vestibular treatment with safety education. Plan of Care Interventions Gait Training,Neuro Re-education,Patient/Caregiver Education,Therapeutic Activities,Therapeutic Exercise PT Services Indicated Yes Treatment Frequency and 1-2x/wk for 10 visits Duration These treatments will address the objective and functional deficits as defined above. The patient will be advanced safely and appropriately in order for the patient to progress towards his/her prior level of function. Additional exercises will be introduced and as well as a comprehensive home exercise program upon discharge, if needed, ?to ensure carryover of functional gains achieved in the clinic. This treatment plan has been reviewed and agreement upon by the patient.
--- NOTE | 2024-12-17 15:20 | OPREHPOC ---
Outpatient Therapy Plan of Care This is a Multidisciplinary Plan of Care that may contain components documented by all disciplines (PT, OT, and ST.) PT Problem 1 PT Problem #1 Knowledge Deficit PT Goal 1 Goal / Goal Update *independent with HEP 11-18-24 progress goal met continue to progress HEP and education for safety 12-17-24 progress goal met; continue to progress HEP and education Target Visit 21 PT Problem 2 PT Problem #2 Impaired Strength PT Goal 1 Goal / Goal Update 1* increase strength of R and L LE to gross of 4/5 2* pt transfer sit/stand with use of 1 UE and controlled motions 11-18-24 progress goals not met; #1 4-5/ and #2 uses both UE 12-17-24 progress goals not met: #1 4 to 4-/5 and #2 uses 1 UE but not controlled continue towards goals continue towards goals Target Visit 21 PT Problem 3 PT Problem #3 Impaired Functional Mobility PT Goal 1 Goal / Goal Update 1* 5 reps sit/stand time of 21 seconds 2* 2 minute walking test distance of 300' with rollator 3* pt up/down 4 steps with one hand railing, independent 4* pt report going out in community and using rollator 5* pt report NO falls 11-18-24 progress goals not met; #1 is 26 seconds; #2 is 225'; #3 use of bilateral hand rails #4 limited outings #5 6 falls since starting therapy continue towards goals 12-17-24 progress goals 1,3,4,5 met Target Visit 15 Progress Partially Met PT Goal 2 Goal / Goal Update NEW goals 12-17-24 progress 1* 5 reps sit/stand with use of 1 UE and standing upright, let go of arm rest, 20 seconds 2* 2 minute walking test distance with rollator 260' 3* pt report NO falls 4* pt transfer sitting/floor with use of UE on mat , CGA for safety Target Visit 21 PT Problem 4 PT Problem #4 Impaired Vestibular System PT Goal 1 Goal / Goal Update pt perform without any spinning sensation/ dizziness reported: 1* pt transfer supine to sit 2* in standing, lean forward with trunk and return to upright posture 3* further assessment & treatment of vestibular system and progression of activity level 11-18-24 progress goal 2 met; continue towards goals 12-17-24 progress goal 2 met continue towards goals Target Visit 21
--- NOTE | 2024-12-17 15:21 | PTOPPROG ---
Assessment and note entered by Iesha De Jesus, PT Assessment Status Progress ICD-10 Condition Codes (PT) Repeated falls R29.6,Difficulty Walking R26.2, Abnormalities of gait and mobility R26.9,Weakness R53.1,Dizziness and Giddiness R42 Onset 11-30-2023 Subjective Information have not had any falls in the past 4 weeks; sat of the floor to do something and was able to get up by herself; going up the stairs to her son's home easier; still have dizziness, sometimes just wake up dizzy and it subsides after I take my medicine and move around; Assessment PT Clinical Summary Stella has received 13 PT sessions. Today's assessment compared to the last assessment : Dizziness handicap index rating from 60 to 44% limitation in activity level; improve sit/stand 5 reps from 26 sec with use of both UE's to 20 seconds with 1 UE use, but she does not let go of the arm rest with standing up; 2 minute walking test with rollator from 225' to 235', with reports of SOB and tired at end of walk; gait pattern improved with step length pass other foot; 4 steps with bilateral hand rails to use of 1 UE with CGA for safety; has not had any falls; continues to have poor sitting posture with rounded shoulders and trunk, leaning posterior; she is able to safely reach to floor in standing, with rollator; transfer from sitting/floor with use of UE on mat and minimal assist to get hips off the floor. She continues to be inconsistent with her reports of dizziness--sometimes spinning, off balance, not know where feet are, unsteady. She reports waking up dizzy every morning, then after get up take meds, it eases. The goals were partially met. Continue PT to further improve LE strength, gait and balance skills for safety with mobility. Continue to monitor vestibular issues and education for progression of HEP. Plan of Care Interventions Gait Training,Neuro Re-education,Patient/Caregiver Education,Therapeutic Activities,Therapeutic Exercise PT Services Indicated Yes Treatment Frequency and 1-2x/wk for 8 visits Duration These treatments will address the objective and functional deficits as defined above. The patient will be advanced safely and appropriately in order for the patient to progress towards his/her prior level of function. Additional exercises will be introduced and as well as a comprehensive home exercise program upon discharge, if needed, ?to ensure carryover of functional gains achieved in the clinic. This treatment plan has been reviewed and agreement upon by the patient.
--- NOTE | 2024-12-27 13:33 | OPREHPOC ---
Outpatient Therapy Plan of Care This is a Multidisciplinary Plan of Care that may contain components documented by all disciplines (PT, OT, and ST.) PT Problem 1 PT Problem #1 Knowledge Deficit PT Goal 1 Goal / Goal Update *independent with HEP 11-18-24 progress goal met continue to progress HEP and education for safety 12-17-24 progress goal met; continue to progress HEP and education 12-27-24 d/c goal met Target Visit 21 Progress Met PT Problem 2 PT Problem #2 Impaired Endurance PT Goal 1 Goal / Goal Update 1* increase strength of R and L LE to gross of 4/5 2* pt transfer sit/stand with use of 1 UE and controlled motions 11-18-24 progress goals not met; #1 4-5/ and #2 uses both UE 12-17-24 progress goals not met: #1 4 to 4-/5 and #2 uses 1 UE but not controlled continue towards goals 12-27-24 d/c goal 2 met Target Visit 21 Progress Partially Met PT Problem 3 PT Problem #3 Impaired Functional Mobility PT Goal 1 Goal / Goal Update 1* 5 reps sit/stand time of 21 seconds 2* 2 minute walking test distance of 300' with rollator 3* pt up/down 4 steps with one hand railing, independent 4* pt report going out in community and using rollator 5* pt report NO falls 11-18-24 progress goals not met; #1 is 26 seconds; #2 is 225'; #3 use of bilateral hand rails #4 limited outings #5 6 falls since starting therapy continue towards goals 12-17-24 progress goals 1,3,4,5 met Target Visit 15 Progress Partially Met PT Goal 2 Goal / Goal Update NEW goals 12-17-24 progress 1* 5 reps sit/stand with use of 1 UE and standing upright, let go of arm rest, 20 seconds 2* 2 minute walking test distance with rollator 260' 3* pt report NO falls 12-27-24 d/c goal 3 met 4* pt transfer sitting/floor with use of UE on mat , CGA for safety Target Visit 21 Progress Partially Met PT Problem 4 PT Problem #4 Impaired Vestibular System PT Goal 1 Goal / Goal Update pt perform without any spinning sensation/ dizziness reported: 1* pt transfer supine to sit 2* in standing, lean forward with trunk and return to upright posture 3* further assessment & treatment of vestibular system and progression of activity level 11-18-24 progress goal 2 met; continue towards goals 12-17-24 progress goal 2 met continue towards goals 12-27-24 d/c goal 2,3 met Target Visit 21 Progress Partially Met
--- NOTE | 2024-12-27 13:33 | PTOPDC ---
Assessment and note entered by Iesha De Jesus, PT Assessment Status Discharge ICD-10 Condition Codes (PT) Repeated falls R29.6,Difficulty Walking R26.2, Abnormalities of gait and mobility R26.9,Weakness R53.1,Dizziness and Giddiness R42 Onset 11-30-2023 Subjective Information no falls at home; use the wheeled walker in the house and when going out; feel like: dizziness- not head spinning/ wobbly, in boat rocking around, off balance; Reported Pain Level Pain Score 3: Self Report back pain Assessment PT Clinical Summary Stella has received a total of 15 PT sessions. Compared to last assessment: Dizziness Handicap Index rating of 34% limitation in activity level; sit to stand transfer with use of 1 UE and stand to sit without UE use; static stand without UE use for 2 minutes and 10 seconds, tends to lean posterior; and rounded shoulders and trunk in sitting and standing; 5 reps sit/stand with use of 1 UE in 21 seconds; 2 minute walking test distance with wheeled walker 235'; transfer sitting/floor with moderate assist x1 with use of UE's on mat; education for HEP completed. Daughter in law Ina is very supportive and assist pt with HEP and mobility. And is going to start taking pt to the fitness center with her, for recumbent stepper and chair exercise class. Stella has not had any falls since attending therapy. She continues to report dizziness/spinning with supine/sit transfer, and wobbly, off balance, unsteady reports. The goals were partially met. Discharge PT services. She is to continue with her HEP, activity as tolerated. Plan of Care PT Services Indicated No
== END 2024-12-27 14:14 | disposition home or self-care (01) ==
LOC: ANHPT 12:30
PROVIDERS: PCP Family Medicine; Visit Provider Family Medicine
DX: R42 Dizziness and giddiness (principal); R29.6 Repeated falls; R53.1 Weakness; H40.9 Unspecified glaucoma
CPT/HCPCS: 95992; 97110; 97112; 97140; 97162; 97530

== ENCOUNTER 2025-03-07 10:46 | Outpatient (CLI) | payer MEDICARE, SELFPAY ==
--- NOTE | ~2025-03-07 | DEXA_ITS ---
Bone Density Report Name: EDISON CONNORS Age: 79 Sex: Female Ethnicity: White Date of : 1945 Indication: postmenopausal; screening for osteoporosis; height loss; prior fracture; Referring Provider: STAN, NGUYỄN [place] Study: Bone densitometry was performed. Exam Date: March 07, 2025 Accession number: [id number] Bone Density: Region BMD T-score Z-score Classification AP Spine(L1, L2, L3) 0.945 -0.7 2.0 Normal World Health Organization criteria for BMD impression classify patients as: Normal (T-score at or above -1.0), Osteopenia (T-score between -1.0 and -2.5), or Osteoporosis (T-score at or below -2.5). Clinical Information Provided by Patient: Has had a low trauma fracture Has used the following medications: Vitamin D Patient maximum height was 62 Menopause Age: 54 No regular weight bearing exercise Drinks caffeinated beverages Onset of menses at age 13 Number of children 2 Impression: The patient has normal bone mass. The patient has risk factors, including: previous fracture. Discussion: BONE DENSITY IS ABOVE THE MINIMUM DESIRABLE LEVEL AT ALL SKELETAL SITES TESTED. This patient?s bone mineral density is above the minimum desirable level (T-score -1.0 or better) at all sites measured. The patient should follow a healthful lifestyle (good nutrition with adequate calcium and vitamin D, and appropriate weight-bearing exercise). Follow-Up: Consider repeating this study in 5 years or sooner if there is some new clinical indication. Reported by: DEQUAN on 03/09/2025 12:35:00 PM. Reviewed, dictated and finalized at location A.
== END 2025-03-07 10:47 | disposition home or self-care (01) ==
LOC: ANHFOHIMG 10:48
PROVIDERS: PCP Family Medicine; Visit Provider Family Medicine
DX: Z13.820 Encounter for screening for osteoporosis (principal); Z78.0 Asymptomatic menopausal state; Z11.59 Encounter for screening for other viral diseases
CPT/HCPCS: 77080

== ENCOUNTER 2025-03-25 15:51 | Emergency (ER) | payer MEDICARE, SELFPAY ==
[2025-03-25] VITALS (10 sets, daily range): BP systolic 120–161; BP diastolic 80–117; PULSE 98–113; RESP 15–20; TEMP 36.8; O2SAT 96–100
--- NOTE | ~2025-03-25 | CT_ITS ---
EXAMINATION: CT brain wo con DATE: 03/25/2025 16:54 INDICATION: Dizziness. Headache. TECHNIQUE: Computed tomography (CT) of the paranasal sinuses was performed without intravenous contrast. The dose-length product was 681.00 mGy-cm. Automated exposure control and iterative reconstruction technique were employed. COMPARISON: CT dated 10/12/2024 FINDINGS: There are scattered mild periventricular and subcortical white matter changes, most likely related to small vessel ischemic disease (microangiopathy). Generalized atrophy. There are surgical changes of the orbits. Paranasal sinuses are pneumatized. Mastoids are pneumatized. No depressed skull fractures. No acute intracranial hemorrhage, infarction, mass or mass effect. Basilar cisterns are patent. IMPRESSION: 1. No acute intracranial abnormality. Reviewed, dictated and finalized at location O. [facility] KEEPER
--- NOTE | 2025-03-25 16:40 | ECG_ITS ---
Test Date: 2025-03-25 21:21:58 Measurements Intervals Hyrum Rate: 101 P: 36 HI: 173 QRS: 2 QRSD: 68 T: 32 QT: 337 QTc: 437 Interpretive Statements SINUS TACHYCARDIA WITH OCCASIONAL SUPRAVENTRICULAR PREMATURE COMPLEXES BASELINE ARTIFACT- I, II, III, AVR, AVL, AVF BORDERLINE ECG Compared to ECG 10/12/2024 17:53:25 No significant changes Electronically Signed On 03-26-2025 09:01:46 ICU CLERK by Vincenzo Colvin D.O.
--- OUTSIDE RECORDS SUMMARY | 2025-03-25 16:42 | XMS_ITS | Encounter Summary ---
Author Organization [facility] Address [address] [place] [address] Care Team Providers Care Inspector Raw Quartz Name Role Phone Ruddy Kingsley MD Primary Care Provider Encounter Details Date Type Department Care Team (Late st Contact Info) Description 02/02/2025 Results Follow-Up [facility] Primary Care at [address] [address] Ruddy Kingsley MD [address] [place] [address] [address] [place] [address] Thyroid Function [place], Vitamin D 25 hydroxy, Lipid panel, Additional followed-up results: 8 Social History Tobacco Use Types Packs/Day Years [...] points, staff should administer the PHQ-9) 2 01/27/2025 PHQ-9 Answer Date Recorded PHQ-9 Total Score [...] Diagnoses Not on filedocumented in this encounter Discontinued Medications Medication Sig Discontinue Reason Start Date End Da te cholecalciferol (VITAMIN D-3) 5,000 unit capsuleIndications:Vitamin D insufficiency 02/02/2025 documented as of this encounter Care Teams Inspector Raw Quartz Relationship Specialty Start Date End Date Ruddy Kingsley MD [address] [facility] [address] [place] [address] PCP - General Family Medicine 01/22/24 documented as of this encounter
--- OUTSIDE RECORDS SUMMARY | 2025-03-25 16:42 | XMS_ITS | Clinical Summary ---
Author Organization [facility] Address [address] [place] [address] Care Team Providers Care Talent Acquisition Assistant Name Role Phone Ruddy Kingsley MD Primary Care Provider Allergies Active Allergy Reactions Criticality Noted Date Comments Mold Other (See comments),Rhinitis Low 11/26/2013 MOLD AND DUST CAUSE EYE IRRITATION AND RUNNY NOSE Other Rhinitis Low 02/22/2021 Agent: Dust Medications latanoprost (XALATAN) 0.005 % ophthalmic solution 1 Active cetirizine (ZyrTEC) 10 mg tablet Take 1 tablet (10 mg total) by mouth Active acetaminophen (TYLENOL) 325 mg tablet Take 2 tablets (650 mg total) by mouth every 4 (four) hours as needed 1 Active baclofen (LIORESAL) 10 mg tablet Take 1 tablet (10 mg total) by mouth nightly 1 Active dorzolamide (TRUSOPT) 2 % ophthalmic solution 1 drop 3 (three) times a day Active ondansetron ODT (ZOFRAN-ODT) 4 mg disintegrating tabletIndications: Vertigo Take 1 tablet (4 mg total) by mouth every 8 (eight) hours as needed for nausea or vomiting 20 tablet 1 5 Active diazePAM (VALIUM) 2 mg tabletIndications: vertigo Take 1 tablet (2 mg total) by mouth every 6 (six) hours as needed for anxiety 30 tablet 1 5 Active meclizine (ANTIVERT) 12.5 mg tablet Take 1 tablet (12.5 mg total) by mouth 3 (three) times a day as needed for dizziness 90 tablet 1 5 Active sodium chloride (OCEAN) 0.65 % nasal spray Administer 1 spray into each nostril as needed for rhinitis Active metoprolol XL (TOPROL-XL) 25 mg extended release tablet Take 1 tablet (25 mg total) by mouth daily 30 tablet 11 5 026 Active venlafaxine XR (EFFEXOR-XR) 75 mg 24 hr capsule TAKE 1 CAPSULE BY MOUTH DAILY - TAKE WITH FOOD. 90 capsule [address] (PROTONIX) 40 mg EC tabletIndications: Gastroesophageal reflux disease without esophagitis TAKE 1 TABLET BY MOUTH DAILY 100 tablet 1 5 Active hydrocortisone 2.5 % creamIndications:s kin rash Apply topically 2 (two) times a day for 14 days 90 g 4 5 Active diphenhydrAMINE (BenadryL) 25 mg capsule Take 1 tablet/capsule (25 mg total) by mouth every 6 (six) hours as needed for itching 30 capsule 5 Active nitrofurantoin monohydrate (MACROBID) 100 mg capsule Take 1 capsule (100 mg total) by mouth 2 (two) times a day for 5 days 10 capsule 5 025 Active Active Problems Problem Noted Date Diagnosed Date Unsteady gait 02/16/2025 Fall 01/27/2025 Fracture of ulnar styloid 01/27/2025 Physical deconditioning 01/27/2025 Ulna fracture 01/27/2025 Incontinence overflow, 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 Stella Antunez is not up to date on screening [...] Encounters Date Type Department Care Team Description 03/25/2025 Nurse Triage [facility] Family Medicine at [facility] - [address] [place] [address] Ruddy Kingsley MD 03/22/2025 Nurse Triage [facility] Family Medicine at [facility] - [address] [place] [address] Ruddy Kingsley MD 03/08/2025 11:04 AM YIELD IMPROVEMENT ENGINEER - 03/08/2025 11:59 PM YIELD IMPROVEMENT ENGINEER Hospital Encounter [facility] [address] [place] [address] Unsteady gait Discharge Disposition: Discharge to home or self care 02/16/2025 10:00 AM YIELD IMPROVEMENT ENGINEER Office Visit [facility] [address] [facility] [address] [place] [id number] Jay Tan MD Unsteady gait (Primary Dx); Dizziness 02/02/2025 Results Follow-Up [facility] Primary Care at [address] [phone] Ruddy Kingsley MD Thyroid Function [place], Vitamin D 25 hydroxy, Lipid panel, Additional followed-up results: 8 01/27/2025 12:15 PM CDT Lab [address] [address] Essential hypertension; Vitamin D insufficiency; Pure hypercholesterolemi a; Need for hepatitis B screening test; B12 deficiency 01/27/2025 11:30 AM CDT Office Visit [facility] Primary Care at [address] [address] Ruddy Kingsley MD Encounter for subsequent annual wellness visit (AWV) in Medicare patient (Primary Dx); Essential hypertension; Pure hypercholesterolemi a; Raynaud's disease without gangrene; B12 deficiency; Gastroesophageal reflux disease without esophagitis; Macrocytic anemia; Recurrent major depressive disorder, in full remission; Lumbar disc disease with radiculopathy; Incontinence overflow, 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; Vertigo; Vitamin D insufficiency; Need for hepatitis B screening test; Screening for osteoporosis; Asymptomatic menopausal state from Last 3 Months Immunizations Immunization Administration [...] Sign Reading Time Taken Comments Blood Pressure 136/85 02/16/2025 10:48 AM YIELD IMPROVEMENT ENGINEER Pulse 64 02/16/2025 10:48 AM YIELD IMPROVEMENT ENGINEER Temperature 36.6 C (97.8 F) 01/27/2025 11:35 AM CDT Respiratory Rate 18 01/27/2025 11:35 AM CDT Oxygen Saturation 93% 02/16/2025 10:48 AM YIELD IMPROVEMENT ENGINEER Inhaled Oxygen Concentration - - Weight 56.7 kg (125 lb) 02/16/2025 10:48 AM YIELD IMPROVEMENT ENGINEER Height 152.4 cm (5') 02/16/2025 10:48 AM YIELD IMPROVEMENT ENGINEER Body Mass Index 24.41 02/16/2025 10:48 AM YIELD IMPROVEMENT ENGINEER Plan of Treatment Health Maintenance Due Date Last Done Comments Osteoporosis Screening-Bone Density Scan 05/19/2025 Postponed from 1944 (Patient declined, but will receive in the future) Influenza Vaccine (#1) 2025 , 02/06/2023, 03/19/2022, Additional history exists Postponed from 11/29/2024 (Patient declined, but will receive in the future) Covid-19 Vaccine ( season) 2026 11/27/2023, 03/18/2022, 01/03/2021, Additional history exists Postponed from 11/29/2024 (Patient declined, but will receive in the future) Depression Screening 01/27/2026 01/27/2025, 08/19/2024, 08/19/2024, Additional history exists Fall Risk Assessment 01/27/2026 01/27/2025, 01/22/20 Well Visit 65+ 01/27/2026 01/27/2025, 01/22/2024 Zoster Vaccine (1 of 2) 01/27/2026 Post poned from 1994 (Insurance / Financial) DTaP/Tdap/Td Vaccine (2 - Td or Tdap) 04/14/2032 04/14/2022 Pneumococcal vaccine 65+ Completed 016, 12/21/2014, 12/29/2012 Hepatitis B Screening Completed 01/27/2025 Procedures Procedure Name Priority Date/Time Associated Diagnosis Comments MRI CERVICAL SPINE WO CONTRAST Schedule SENG, Read Routine (Patient lives out of area) 03/08/2025 11:44 AM YIELD IMPROVEMENT ENGINEER Unsteady gait EGFR Routine 01/27/2025 12:23 PM CDT Essential hypertension DIFFERENTIAL AUTO Routine 01/27/2025 12:23 PM CDT Essential hypertension VITAMIN B12 Routine 01/27/2025 12:23 PM CDT B12 deficiency CBC WITH AUTO DIFFERENTIAL Routine 01/27/2025 12:23 PM CDT Essential hypertension COMPREHENSIVE METABOLIC PANEL Routine 01/27/2025 12:23 PM CDT Essential hypertension LIPID PANEL Routine 01/27/2025 12:23 PM CDT Pure hypercholesterolemia VITAMIN D 25 HYDROXY Routine 01/27/2025 12:23 PM CDT Vitamin D insufficiency THYROID FUNCTION CASCADE Routine 01/27/2025 12:23 PM CDT Essential hypertension HEPATITIS B SURFACE ANTIGEN Routine 01/27/2025 12:23 PM CDT Need for hepatitis B screening test HEPATITIS B CORE ANTIBODY, TOTAL Routine 01/27/2025 12:23 PM CDT Need for hepatitis B screening test HEPATITIS B SURFACE ANTIBODY (IMMUNE STATUS) Routine 01/27/2025 12:23 PM CDT Need for hepatitis B screening test from Last 3 Months Results * MRI Cervical Spine WO Contrast (03/08/2025 11:44 AM YIELD IMPROVEMENT ENGINEER) Anatomical Region Laterality Modality Spine N/A Magnetic Resonan ce 03/08/2025 12:2 0 PM YIELD IMPROVEMENT ENGINEER Impressions 03/08/2025 12:20 PM YIELD IMPROVEMENT ENGINEER 1. Cervical disc degeneration ranging up to moderate to severe with thickened ligamentum flavum, uncovertebral spurring and facet arthropathy as described. The spinal canal narrowing is most noticeable at C4-C5 and C5-C6. 2. Varying degrees of bilateral neural foraminal stenosis and other findings as above. 3. Previous cervical spine imaging is not available for comparison. Electronically signed by: Jarrett Rios D.O. Narrative 03/08/2025 12:20 PM YIELD IMPROVEMENT ENGINEER EXAM DESCRIPTION:MRI CERVICAL SPINE WO CONTRAST REASON FOR STUDY: Unsteady gait. Rule out cervical spinal stenosis TECHNIQUE: Sagittal and Axial imaging includes T1, T2, STIR and gradient echo sequences. COMPARISON:None available FINDINGS: ALIGNMENT: There is grade 1 retrolisthesis of C4 on C5 and C5 on C6. Grade 1 anterolisthesis of C6 on C7 and C7 on T1. VERTEBRAE: No gross acute compression fracture in the cervical spine. In the setting of trauma a CT has higher sensitivity for spinal fractures and can be obtained as clinically indicated. Multilevel endplate degenerative changes with marginal spur formation. STIR hyperintense signal about the C1-C2 level is nonspecific and presumed to be degenerative in nature. DISCS: Diffuse disc desiccation and height loss ranging up to moderate to severe. HARDWARE: None in the spine. CORD: The evaluation of the cord is degraded by patient motion and pulsation artifact. INDIVIDUAL LEVELS: C2-C3: Minor disc bulge and thickened ligamentum flavum. No significant spinal canal stenosis. Bilateral facet arthropathy without significant neural foraminal narrowing. C4: Minor disc bulge and thickened ligamentum flavum. No significant spinal canal stenosis. Uncovertebral spurring and facet arthropathy with mild right and [id number] left neural foraminal narrowing. C4-C5: Posterior discussion right complex and thickened ligamentum flavum. Moderate spinal canal stenosis. Uncovertebral spurring and facet arthropathy with moderate to severe bilateral neural foraminal narrowing. C5-C6: Posterior disc osteophyte complex and thickened ligamentum flavum. Moderate spinal canal stenosis. Uncovertebral spurring and facet arthropathy with moderate to severe bilateral neural foraminal narrowing. C6-C7: Anterolisthesis of C6 on C7 with unroofing of the disc. No significant spinal canal stenosis. Uncovertebral spurring and facet arthropathy with mild bilateral neural foraminal narrowing. C7-T1: Anterolisthesis of C7 on T1 with unroofing of the disc. Thickened ligamentum flavum. No significant spinal canal stenosis. Uncovertebral spurring and facet arthropathy with mild to moderate neural foraminal narrowing. UPPER THORACIC: Incompletely imaged. Degenerative changes without high-grade spinal canal stenosis. Procedure Note Jarrett Rios, DO - 03/08/2025 EXAM DESCRIPTION:MRI CERVICAL SPINE WO CONTRAST REASON FOR STUDY: Unsteady gait. Rule out cervical spinal stenosis TECHNIQUE: Sagittal and Axial imaging includes T1, T2, STIR and gradient echo sequences. COMPARISON:None available FINDINGS: ALIGNMENT: There is grade 1 retrolisthesis of C4 on C5 and C5 on C6. Grade 1 anterolisthesis of C6 on C7 and C7 on T1. VERTEBRAE: No gross acute compression fracture in the cervical spine. In the setting of trauma a CT has higher sensitivity for spinal fractures and can be obtained as clinically indicated. Multilevel endplate degenerative changes with marginal spur formation. STIR hyperintense signal about the C1-C2 level is nonspecific and presumed to be degenerative in nature. DISCS: Diffuse disc desiccation and height loss ranging up to moderate to severe. HARDWARE: None in the spine. CORD: The evaluation of the cord is degraded by patient motion and pulsation artifact. INDIVIDUAL LEVELS: C2-C3: Minor disc bulge and thickened ligamentum flavum. No significant spinal canal stenosis. Bilateral facet arthropathy without significant neural foraminal narrowing. C4: Minor disc bulge and thickened ligamentum flavum. No significant spinal canal stenosis. Uncovertebral spurring and facet arthropathy with mild right and [id number]-[id number]-[id number] left neural foraminal narrowing. C4-C5: Posterior discussion right complex and thickened ligamentum flavum. Moderate spinal canal stenosis. Uncovertebral spurring and facet arthropathy with moderate to severe bilateral neural foraminal narrowing. C5-C6: Posterior disc osteophyte complex and thickened ligamentum flavum. Moderate spinal canal stenosis. Uncovertebral spurring and facet arthropathy with moderate to severe bilateral neural foraminal narrowing. C6-C7: Anterolisthesis of C6 on C7 with unroofing of the disc. No significant spinal canal stenosis. Uncovertebral spurring and facet arthropathy with mild bilateral neural foraminal narrowing. C7-T1: Anterolisthesis of C7 on T1 with unroofing of the disc. Thickened ligamentum flavum. No significant spinal canal stenosis. Uncovertebral spurring and facet arthropathy with mild to moderate neural foraminal narrowing. UPPER THORACIC: Incompletely imaged. Degenerative changes without high-grade spinal canal stenosis. IMPRESSION: 1. Cervical disc degeneration ranging up to moderate to severe with thickened ligamentum flavum, uncovertebral spurring and facet arthropathy as described. The spinal canal narrowing is most noticeable at C4-C5 and C5-C6. 2. Varying degrees of bilateral neural foraminal stenosis and other findings as above. 3. Previous cervical spine imaging is not available for comparison. Electronically signed by: Jarrett Rios D.O. Jay Tan MD IMG MRI PROCEDURES Rox l Result * eGFR (01/27/2025 12:23 PM CDT) eGFR 79 >=60 mL/min/1. 73 m2 Comment: Interpretive Data [...] interpretive data was last reviewed 2021. Blood 01/27/2025 12:2 3 PM CDT 01/27/2025 2:17 PM CDT us Ruddy Kingsley MD LAB BLOOD ORDERABLES Final Result [place] [id number] [facility] [place] [address] * Differential, auto (01/27/2025 12:23 PM CDT) Neutrophil abs 3.18 1.50 - 6.50 K/cumm Imm gran abs 0.02 0.00 - 0.10 K/cumm [facility] Lymphocyte abs 2.01 0.80 - 3.30 K/cumm [facility] Monocyte abs 0.55 0.20 - 0.80 K/cumm [facility] Eosinophil abs 0.21 0.00 - 0.50 K/cumm [facility] Basophil abs 0.05 0.00 - 0.10 K/cumm [facility] Neutrophil pct 52.9 % [facility] Comment: Interpretive Data Percent cell count reference ranges are not reported, since discordance with absolute values may lead to misinterpretation of CBC data. Current Interpretive Data was last revised on 2017. Imm gran pct 0.3 % [facility] Comment: Interpretive Data Percent cell count reference ranges are not reported, since discordance with absolute values may lead to misinterpretation of CBC data. Current Interpretive Data was last revised on 2017. Lymphocyte pct 33.4 % [facility] Comment: Interpretive Data Percent cell count reference ranges are not reported, since discordance with absolute values may lead to misinterpretation of CBC data. Current Interpretive Data was last revised on 2017. Monocyte pct 9.1 % [facility] Comment: Interpretive Data Percent cell count reference ranges are not reported, since discordance with absolute values may lead to misinterpretation of CBC data. Current Interpretive Data was last revised on 2017. Eosinophil pct 3.5 % [facility] Comment: Interpretive Data Percent cell count reference ranges are not reported, since discordance with absolute values may lead to misinterpretation of CBC data. Current Interpretive Data was last revised on 2017. Basophil pct 0.8 % [facility] Comment: Interpretive Data Percent cell count reference ranges are not reported, since discordance with absolute values may lead to misinterpretation of CBC data. Current Interpretive Data was last revised on 2017. Blood 01/27/2025 12:2 3 PM CDT 01/27/2025 2:13 PM CDT Result [facility] Ruddy Kingsley MD LAB BLOOD ORDERABLES Final Result Performing Organization Address [facility] Co de Phone Number [address] [place] [address] * Thyroid Function [place] (01/27/2025 12:23 PM CDT) Pathologist [facility] TSH 3.08 0.30 - 4.20 mcIUnit/mL Blood 01/27/2025 12:2 3 PM CDT 01/27/2025 2:17 PM CDT Result [facility] Ruddy Kingsley MD LAB BLOOD ORDERABLES Final Result Performing Organization Address City/[facility] Co de Phone Number [address] [address] * (ABNORMAL) CBC with auto differential (01/27/2025 12:23 PM CDT) Pathologist [facility] WBC 6.02 3.80 - 9.90 K/cumm Hgb 11.5(L) 11.9 - 15.5 g/dL [facility] Hct 36.2 35.6 - 45.5 % [facility] Plt 399 150 - 400 K/cumm [facility] MPV 10.0 9.1 - 12.3 fL [facility] RBC 4.20 3.90 - 5.20 M/cumm [facility] MCV 86.2 81.3 - 96.4 fL [facility] MCH 27.4 27.1 - 33.3 pg [facility] MCHC 31.8(L) 32.3 - 35.7 g/dL [facility] RDW CV 14.9 11.1 - 14.9 % [facility] RDW SD 47.1 35.7 - 48.1 fL [facility] NRBC abs 0.00 0.00 - 0.01 K/cumm [facility] Blood 01/27/2025 12:2 3 PM CDT 01/27/2025 2:13 PM CDT Ruddy Kingsley MD LAB BLOOD ORDERABLES Final Result Performing Organization Address City/[facility] Co de Phone Number HESHAM [address] [place] [address] * Hepatitis B core antibody, total Blood (01/27/2025 12:23 PM CDT) Pathologist [facility] Hep B core IgG/IgM Nonreactive Nonreactive Comment:Testing performed by : [facility], [address] [place]., [address] Blood 01/27/2025 12:2 3 PM CDT 01/27/2025 5:26 PM CDT Ruddy Kingsley MD LAB MICROBIOLOGY - GENERAL ORDERABLES Final Result Performing Organization Address City/[facility] Co de Phone Number HESHAM [address] [place] [address] * (ABNORMAL) Vitamin D 25 hydroxy (01/27/2025 12:23 PM CDT) Pathologist [facility] Vitamin D 25-OH 89.0(H) 30.0 - 80.0 ng/mL Blood 01/27/2025 12:2 3 PM CDT 01/27/2025 2:17 PM CDT Ruddy Kingsley MD LAB BLOOD ORDERABLES Final Result Performing Organization Address [facility] Co de Phone Number HESHAM [facility] [facility] [place] [address] * Hepatitis B surface antibody (immune status) Blood (01/27/2025 12:23 PM CDT) Pathologist [facility] HBsAb (immune status) Nonreactive Comment: Interpretive Data Nonreactive: This result is consistent with a lack of immunity to Hepatitis B Virus when used in the setting of routine screening. Equivocal: The immune status of the individual should be further assessed, if appropriate, after consideration of clinical status, risk factors, and additional diagnostic information. Reactive: This result is consistent with immunity to Hepatitis B Virus when used in the setting of routine screening. Current interpretive data was last revised on 19. Blood 01/27/2025 12:2 3 PM CDT 01/27/2025 3:21 PM CDT Ruddy Kingsley MD LAB MICROBIOLOGY - GENERAL ORDERABLES Final Result Performing Organization Address [facility] Co de Phone Number [id number] [address] * Hepatitis B Surface Antigen Blood (01/27/2025 12:23 PM CDT) [facility] HepBsAg Nonreactive Nonreactive Blood 01/27/2025 12:2 3 PM CDT 01/27/2025 3:21 PM CDT Ruddy Kingsley MD LAB MICROBIOLOGY - GENERAL ORDERABLES Final Result Performing Organization Address [facility] Co de Phone Number [place] [address] [facility] [place] [address] * Vitamin B12 (01/27/2025 12:23 PM CDT) [facility] Vitamin B12 913 230 - 1,250 pg/mL Blood 01/27/2025 12:2 3 PM CDT 01/27/2025 2:17 PM CDT us Ruddy Kingsley MD LAB BLOOD ORDERABLES Final Result [facility] [place] [address] [facility] [place] [address] * (ABNORMAL) Lipid panel (01/27/2025 12:23 PM CDT) Cholesterol 203(H) 30 - 199 mg/dL Comment: Interpretive Data Ages < or = 19 years Acceptable: <170 mg/dL Borderline high: 170-199 mg/dL High: >or= 200 mg/dL Ages > or = 20 years Desirable: <200 mg/dL Borderline high: 200-239 mg/dL High: >or= 240 mg/dL Literature References: 1. Expert Panel on Integrated Guidelines for Cardiovascular Health and Risk Reduction in Children and Adolescents. Pediatrics 2011;128:S213 2. NCEP Expert Panel. Circulation 2004;110:227 Current Interpretive Data was last revised on 2017. Triglycerides 89 <=149 mg/dL HESHAM Comment: Interpretive Data Ages < or = 9 years Acceptable: <75 mg/dL Borderline high: 75-99 mg/dL High: >or= 100 mg/dL Ages 10 to 20 years Acceptable: <90 mg/dL Borderline high: 90-129 mg/dL High: >or= 130 mg/dL Ages > or = 20 years Desirable: <150 mg/dL Borderline high: 150-199 mg/dL High: 200-499 mg/dL Very high: >or= 499 mg/dL Literature References: 1. Expert Panel on Integrated Guidelines for Cardiovascular Health and Risk Reduction in Children and Adolescents. Pediatrics 2011;128:S213 2. NCEP Expert Panel. Circulation 2004;110:227 Current Interpretive Data was last revised on 2017. HDL 53 >=40 mg/dL HESHAM Comment: Interpretive Data Ages < or = 19 years Acceptable: >45 mg/dL Borderline low: 40-45 mg/dL Low: <40 mg/dL Ages > or = 20 years Desirable: >or= 60 mg/dL Low: <40 mg/dL Literature References: 1. Expert Panel on Integrated Guidelines for Cardiovascular Health and Risk Reduction in Children and Adolescents. Pediatrics 2011;128:S213 2. NCEP Expert Panel. Circulation 2004;110:227 Current Interpretive Data was last revised on 2017. LDL, calculated 134(H) <=129 mg/dL [facility] [place] Comment: Interpretive Data Ages < or = 19 years Acceptable: <110 mg/dL Borderline high: 110-129 mg/dL High: >or= 130 mg/dL Ages > or = 20 years Optimal: <100 mg/dL Near optimal: 100-129 mg/dL Borderline high: 130-159 mg/dL High: >160 mg/dL Calculated using the Eulalio LDL-C estimating equation. This equation was implemented on 2023. Prior to this date LDL-C was estimated using the Friedewald equation. Literature References: 1. Expert Panel on Integrated Guidelines for Cardiovascular Health and Risk Reduction in Children and Adolescents. Pediatrics 2011;128:S213 2. NCEP Expert Panel. Circulation 2004;110:227 3. Eulalio Alexander et al. ANANDA Cardiol. 2019July 29;5(5):540-548. doi: 10.1001/jamacardio.2020.0013 Current Interpretive Data was last revised on 2023. Non-HDL Cholesterol 150 mg/dL [facility]AM MCGREG[facility] Comment: Interpretive Data Ages < or = 19 years Acceptable: <120 mg/dL Borderline high: 120-144 mg/dL High: >145 mg/dL Ages > or = 20 years When triglycerides are >200 mg/dL, Non-HDL cholesterol is a secondary target of therapy with treatment goals that are 30 mg/dL greater than the LDL cholesterol target. Literature References: 1. Expert Panel on Integrated Guidelines for Cardiovascular Health and Risk Reduction in Children and Adolescents. Pediatrics 2011;128:S213 2. NCEP Expert Panel. Circulation 2004;110:227 Current Interpretive Data was last revised on 2017. Chol/HDL ratio 4 HESHAM MCGREGOR Blood 01/27/2025 12:2 3 PM CDT 01/27/2025 2:17 PM CDT us Ruddy Kingsley MD LAB BLOOD ORDERABLES Final Result [facility] [place] [address] [facility] [place] [address] * (ABNORMAL) Comprehensive metabolic panel (01/27/2025 12:23 PM CDT) Sodium 133(L) 135 - 145 mmol/L Potassium, pl 4.4 3.3 - 4.9 mmol/L [facility] Chloride 96(L) 97 - 110 mmol/L [facility] CO2 27 22 - 32 mmol/L [facility] Anion gap 10 2 - 15 mmol/L [facility] BUN 15 6 - 25 mg/dL [facility] Creatinine 0.76 0.60 - 1.10 mg/dL [facility] Glucose 104 70 - 199 mg/dL [facility] [facility]ALTH[facility]ARE Comment: Interpretive Data Fasting glucose >/= 126 [...] interpretive data was last revised 2022. Calcium 9.6 8.5 - 10.3 mg/dL [facility] Bilirubin, total 0.5 0.1 - 1.2 mg/dL [facility] Protein, pl 7.4 6.5 - 8.5 g/dL [facility] Albumin 4.4 3.5 - 5.0 g/dL [facility] Alk phos 79 40 - 130 Units/L [facility] ALT 6(L) 7 - 45 Units/L [facility] AST 20 10 - 45 Units/L [facility] Blood 01/27/2025 12:2 3 PM CDT 01/27/2025 2:17 PM CDT us Ruddy Kingsley MD LAB BLOOD ORDERABLES Final Result [facility] [id number] [facility] Department [place] [address] from Last 3 Months Insurance [facility] MEDICARE ADVANTAGE [facility] MEDICARE ADVANTAGE Care Teams Talent Acquisition Assistant Relationship Specialty Start Date End Date Ruddy Kingsley MD [address] [address] PCP - General Family Medicine 01/22/24
--- OUTSIDE RECORDS SUMMARY | 2025-03-25 16:42 | XMS_ITS | Encounter Summary ---
Author Organization [facility] Healthcare Address [address] [place] [address] Care Team Providers Care Cigar Head Puncher Name Role Phone Ruddy Kingsley MD Primary Care Provider Reason for Visit * Reason Onset Date Comments Dizziness 03/25/2025 Encounter Details Date Type Department Care Team (Late st Contact Info) Description 03/25/2025 Nurse Triage [facility] Family Medicine at [facility] - [address] [facility] [address] [place] [address] Ruddy Kingsley MD [facility] [address] Social History Tobacco Use Types Packs/Day Years [...] encounter Miscellaneous Notes * Telephone Encounter - Alyson Dias RN - 03/25/2025 3:09 PM SENIOR ENGINEERING MANAGER Sunday 03/25, office is closed, it is 1515. ED NOW FYI ONLY to Ruddy Kingsley MD. No additional action required at this time. Reason for Conversation Dizziness last night, can't get dressed she is so dizzy. Background Spinning type of dizziness, is able to walk with her walker but she was unable to get dressed today. Son is with her. They were unable to find her BP cuff. States she has a headache but her main symptom is dizziness. She took meclizine early this morning and again about 30 min ago but it has not helped. She feels extra sleepy, this could be contributed to meclizine. Denies that her heart is racing. Denies unusual bleeding, vomiting, diarrhea, rectal bleeding recent injuries, chest pain, sob. Disposition Go to ED Now (or PCP Triage), See More Appropriate Protocol Stella agrees to have her son drive her to the ED now and if he can't get her to the car safely they need to call 911 for ambulance transport. Reason for Disposition Dizziness is described as a spinning sensation (i.e., vertigo) [1] Dizziness (vertigo) present now AND [2] one or more STROKE RISK FACTORS (i.e., hypertension, diabetes, prior stroke/TIA, heart attack) (Exception: Prior doctor or TEST ENGINE MECHANIC/PA evaluation for this AND nodifferent/worse than usual.) Protocols Used Dizziness - Yvabqyl-Mqzke-SR Dizziness - Nnziojqjaqrbkzf-Qrbmx-HE OR ENGINEERING MANAGER * Telephone Encounter - Alyson Dias RN - 03/25/2025 3:08 PM SENIOR ENGINEERING MANAGER Regarding: dizziness ----- Message from Jacinda Francisco sent at 03/25/2025 3:05 PM SENIOR ENGINEERING MANAGER ----- Symptom Based Call Chief Complaint(s): dizziness Duration: last night What type of symptom(s) is the patient experiencing? Red Flag. Is the patient concerned they are experiencing a medical emergency requiring an ambulance? No Additional Comments: patient states she is so dizzy she can't even get dressed Does message need to be routed? Yes-Action Needed OR ENGINEERING MANAGER documented in this encounter Plan of Treatment Not on file documented as of this encounter Visit Diagnoses Not on filedocumented in this encounter Care Teams Cigar Head Puncher Relationship Specialty [place] [address] [place] [id number] PCP - General Family Medicine 01/22/24 documented as of this encounter
--- OUTSIDE RECORDS SUMMARY | 2025-03-25 16:42 | XMS_ITS | Clinical Summary ---
Author Organization [facility] Address [address] [place] [address] Care Team Providers Care Ship Wirer Name Role Phone Ruddy Kingsley MD Primary Care Provider [phone] Source Comments [facility],non-owned Affiliates and Associated Physician Practices is amultiple site organization consisting of ambulatory clinics and hospital sitesin [place], [place], [place] and [place]. This disclosure is being madepursuant to the Care Everywhere program and may not contain all information available regarding this patient. Last updated 17.[facility] Encounters Date Type Department Care Team Description 02/22/2025 12:54 PM CYLINDER DYER - 02/22/2025 11:59 PM CYLINDER DYER Hospital Encounter [place] [id number] [place] [address] Brandy Calvillo MD Discharge Disposition: Home or Self Care 02/16/2025 Transcribe Orders [place] [id number] [facility] [address] [place] [address] Jay Tan MD Dizziness from Last 3 Months Social History Tobacco Use Types Packs/Day Years Used Date Smoking Tobacco: Never Assessed Comments Unknown Sex and Gender Information Value Date Recorded Sex Assigned at Not on file Legal Sex Female 2:40 PM CYLINDER DYER Gender Identity Not on file Sexual Orientation Not on file Plan of Treatment Health Maintenance Due Date Last Done Comments DTAP/TDAP/TD VACCINES (1 - Tdap) 1963 PNEUMOCOCCAL VACCINE 50+ (1 of 1 - PCV) 1994 ZOSTER VACCINE (1 of 2) 1994 Respiratory Syncytial Virus (RSV) Vaccine Pt: or over 60 yrs (1 - 1-dose 75+ series) 2019 DEPRESSION SCREENING 03/31/2024 MEDICARE AWV CALENDAR YEAR 2024 COVID-19 VACCINE ( - 2024- season) 2024 03/18/2022, 06/10/2020, 05/20/2020 INFLUENZA VACCINE (#1) 2024 4, 02/06/2023, 03/19/2022, Additional history exists BONE DENSITY TESTING Completed 11/29/2020, 02/20/20 16 HEPATITIS B VACCINE Aged Out No longe r eligible based on patient's age to complete this topic HIB VACCINE Aged Out No longer eligi ble based on patient's age to complete this topic HPV VACCINE Aged Out No longer eligi ble based on patient's age to complete this topic MENINGOCOCCAL (Group B) VACCINE SHARED DECISION-MAKING Aged Out No longer eligible based on patient's age to complete this topic MENINGOCOCCAL GROUPS A/C/Y/W VACCINE Aged Out No longer eligible based on patient's age to complete this topic Procedures Procedure Name Priority Date/Time Associated Diagnosis Comments TILT TABLE TEST WITHOUT AUTONOMIC STUDIES Routine 02/22/2025 4:41 PM CYLINDER DYER Dizziness from Last 3 Months Results * TILT TABLE TEST WITHOUT AUTONOMIC STUDIES (02/22/2025 4:41 PM CYLINDER DYER) Narrative Brandy Calvillo MD - 02/22/2025 4:41 PM CYLINDER DYER Brandy Calvillo MD 02/28/2025 2:26 PM Autonomic Laboratory Studies January, 3:55:36 PM Testing Facility [facility] [employer] (MM), [facility] [place] [address] Reason for Referral: Dizziness Patient Profile Visit Remarks: 79yoFemale referred for Dizziness. Started about 2yrs ago, started with Vertigo. Sx - Dizziness, Lightheadedness, SOB, Nausea Vomiting, Off balance, Increase in Fatigue, Falls. Quick standing, Position changes, Exertion can trigger sx's. Sitting, Lying down, Hydration can improve sx's. Meds - Baclofen, Zyrtec, Valium, Benadryl, Meclizine, Metoprolol, Zofran, Pantoprazole, Effexor. ID: [id number] Name: Stella Antunez Referring: Jay Tan M.D. Sex: Female Birthdate: 1945 Attending: Brandy Calvillo M.D. Height: 60 in Weight: 125 lbs Primary: Impression: The study is limited by electrical artifact. There is evidence of orthostatic hypertensive response without clear evidence of POTS, [place] or vasovagal syncope, despite reproducing symptoms. Clinical correlation is recommended. Signature: Brandy Calvillo M.D. Director, Clinical Neurophysiology Time: 02/22/2025 1:24 PM Test Notes: Increase in baseline dizziness upon standing. 5- Double checking BP - 154/87. Palpitations causing artifact. Nausea. 8-Hot. 11- Still Dizzy, Hot, Nauseous. SOB. 22- Still Hot, Dizzy, Nauseous, SOB. 24- Back pain level 7. Right foot has more pressure on it than the left. 37- Neck pain. Test Tilt Test - Version Date 3 Manager Transfusion: Josh Gutiérrez Analysis Tilt (ECG) Analysis - Version Date 3 us Jay Tan MD NEUROLOGY ORDERABLES Fi nal Result from Last 3 Months Insurance Care Teams Ship Wirer Relationship Specialty Start Date End Date Ruddy Kingsley MD [address] [address] PCP - General Family Medicine 02/22/25
--- NOTE | 2025-03-25 20:20 | ED.DIZZY ---
HPI - Dizziness General Chief Complaint: Dizziness Stated Complaint: dizzy Time Seen by Provider: 03/25/25 20:03 Source: patient and family Mode of arrival: ambulatory Limitations: no limitations History of Present Illness HPI Narrative: Patient presents with report of dizziness. This episode started last night but she has been dealing with these episodes for awhile and has undergone multiple tests including CT, MRI, cardiac work up including a recent tilt table. Her a year ago and symptoms started after that. No unilateral symptoms, paresthesias, slurred speech, or altered mental status. The episodes make it that she can hardly stand. She had fallen a few times but not in months. She describes it as a lightheadedness, no rotational component/spinning. No sensation of falling. Denies ear pain, tinnitus, hearing changes. Has meclizine at home and has taken 2 total , 12.5mg each with last dose at 2:30. There is a positional component to her symptoms but not preceded by head position changes. Her PCP Dr Borrero. He has a frontal headache associated with nausea but no vomiting. No photophobia or phonophobia. Not on anticoagulation. No neck pain. Lives by herself. No sick contacts. Ambulates with assist device. Related Data Home Medications ?Medication ?Instructions ?Recorded ?Confirmed ?Last Taken ?Type dorzolamide 2 % eye drops 1 drp RIGHT EYE DAILY 07/09/24 10/12/24 10/12/24 History latanoprost 0.005 % eye drops 1 drp RIGHT EYE BID 07/09/24 10/12/24 Unknown History pantoprazole 40 mg tablet,delayed 40 mg PO Q12H 07/09/24 10/12/24 10/12/24 History release venlafaxine 150 mg 150 mg PO QPM 07/09/24 10/12/24 10/11/24 History capsule,extended release 24 hr meclizine 12.5 mg tablet 12.5 mg PO DAILY PRN dizziness 10/12/24 10/12/24 Unknown History metoprolol succinate 25 mg 25 mg PO DAILY 10/12/24 10/12/24 10/12/24 History tablet,extended release 24 hr Allergies Allergy/AdvReac Type Severity Reaction Status Date / Time No Known Allergies Allergy Verified 03/25/25 20:37 [facility] Past Medical History Medical History Glaucoma Depression Anxiety Urgency incontinence GERD (gastroesophageal reflux disease) HTN (hypertension) Vertigo Ulna fracture Surgical History Surgical History History of bilateral cataract extraction Family History Family History Mother Alzheimer dementia Social History Social History (Updated 03/27/25 @ 04:28 by Elma Sutton MD) Smoking status: Never smoker Alcohol intake: current Drinks per week: 5 Substance use: never Substance use type: does not use Lack of Transportation: No Lack of Food: Never True Current Housing: I Have Housing Concerned About Future Housing: No Difficulty Paying Gas/Electric Bills: No Difficulty Paying for Meds: No Currently Unemployed: No Education: High School Diploma/GED Difficulty w/ Childcare or Family Care: No Living arrangements: alone Spiritual care concerns: No Exam Narrative: GENERAL: well-nourished, and in no acute distress. HEAD: Normocephalic, atraumatic. EYES: Non injected, non icteric. No horizontal or vertical nystagmus. ENT: Nares clear, no rhinorrhea or epistaxis. Gross auditory acuity intact. Bilateral TMs visualized without effusion, bulging, erythema. No vesicles. NECK: Supple. No meningismus. CHEST: Speaking in full sentences. No respiratory distress. HEART: Tachycardic rate and rhythm. . ABDOMEN: Soft, nondistended. No rigidity or guarding. Not peritoneal EXTREMITIES: Normal range of motion. No lower extremity edema. SKIN: Warm, dry, no rash. NEURO: No focal deficits. Alert and oriented. Answering questions. Following commands. Normal speech without aphasia or dysarthria. No ataxia on finger nose finger. PSYCH: Congruent mood and affect. Course Vital Signs Vital signs: Vital Signs Temperature 98.3 F 03/25/25 16:38 Pulse Rate 111 H 03/25/25 16:38 Respiratory Rate 16 03/25/25 16:38 Blood Pressure 147/101 H 03/25/25 16:38 Pulse Oximetry 97 03/25/25 16:38 Temperature 98.3 F 03/25/25 16:38 Pulse Rate 100 03/26/25 00:36 Respiratory Rate 18 03/26/25 00:36 Blood Pressure 153/78 H 03/26/25 02:20 Pulse Oximetry 98 03/26/25 00:36 MDM MDM Narrative Medical decision making narrative: Patient presents with report of dizziness starting last night and still persisting. Described as a lightheadedness, not particularly vertiginous, associated with nausea and causing gait disturbance. Has been having these episodes for the better part of a year with extensive work up thus far. In the emergency department she is afebrile with vital signs notable for mild tachycardia as hypertension. 10/12/2024 IMPRESSION: 1. Normal CTA head. 2. CTA neck. Percent stenosis per NASCET criteria is 0%. MRI June 2024 IMPRESSION: 1. No acute intracranial process. 2. Age-related changes including mild to moderate diffuse volume loss and moderate scattered pontine and cerebral white matter T2 hyperintensity consistent with chronic small vessel ischemic disease. == Meclizine given as first line agent. Had already taken a total of 25mg at home (two tablets of 12.5 throughout the day, last dose at 2:30 . She has a normocytic anemia. This does represent a drop of >1g from previous however per review of previous lab values before that, patient had consistently had a Hgb of between 10 and 11 thus this otherwise appears chronic/stable. Hyponatremia is chronic. She is still dizzy on reassessment at 9pm. Valium ordered as second line agent. On reassessment she reports dizziness improved while laying there but when gets up gets dizzy again. Orthostatics reviewed. Promethazine ordered as third line agent to suppress vestibular end-organ receptors and inhibit activation of vagal response. Successfully PO challenges and is feeling better on repeat gait assessment per RN. Will be discharged with Rx for phenergan. Advised follow up with PCP and neurology. Differential Diagnosis Differential Diagnosis: Although not distinctly vertiginous, considered Central causes: infection ( encephalitis, meningitis, cerebritis); vertebrobasilar arterial insufficiency, subclavian steal syndrome, cerebellar or brainstem hemorrhage or infarction, vertebrobasilar migraine, trauma ( temporal bone fracture, post concussive syndrome); tumor (brainstem or cerebellum); MS; temporal lobe epilepsy Peripheral causes: Foreign body, cerumen impaction, acute otitis media, labyrinthitis, benign paroxysmal positional vertigo, Meniere's disease, vestibular neuronitis, perilymphatic fistula, trauma, motion sickness, acoustic neuroma, ototoxic medications Also considered orthostatic, psychogenic Medical Records I have reviewed the following patient records and this information was taken into consideration when formulating the assessment and plan.: previous labs (previous imaging) Lab Data MDM Lab Attestation statement: I personally reviewed the patient's lab results. 03/25/25 20:16 03/25/25 20:16 Labs: Lab Results 03/25/25 Range/Units 20:16 WBC 8.5 (4.5-10.0) K/mm3 RBC 3.72 L (4.2-5.4) M/mm3 Hgb 10.1 L (12.0-15.0) g/dL Hct 31.7 L (37.0-47.0) % MCV 85.2 (80-100) fl MCH 27.2 (26-34) pg MCHC 31.9 L (32-36) g/dl RDW 15.2 H (11.5-14.5) % Plt Count 348 (150-375) k/mm3 MPV 9.2 (7.4-10.4) fl Immature Gran % (Auto) 0.7 H (0-0.5) % Neut % (Auto) 63.6 (45.5-73.1) % Lymph % (Auto) 27.1 (18.3-44.2) % Linn % (Auto) 7.1 (2.6-8.5) % Eos % (Auto) 1.3 (0-4.4) % Baso % (Auto) 0.2 (0.2-1.2) % Lymph # (Auto) 2.30 (0.9-3.2) K/mm3 Linn # (Auto) 0.6 (0.1-0.6) K/mm3 Eos # (Auto) 0.1 (0-0.3) K/mm3 Baso # (Auto) 0.0 (0.0-0.1) K/mm3 Abs Immat Gran (auto) 0.06 H (0.00-0.031) K/mm3 Absolute Neuts (auto) 5.4 (1.3-6.7) K/mm3 Absolute Nucleated RBC 0.000 (0.0-0.012) K/mm3 Nucleated RBC % 0.0 (0.0-0.2) % Sodium 131 L (137-145) mmol/L Potassium 3.4 (3.4-5.0) mmol/L Chloride 98 (98-107) mmol/L Carbon Dioxide 25 (22-30) mmol/L Anion Gap 8 (4-12) mmol/L BUN 16 (7-17) mg/dL Creatinine 0.76 (0.7-1.0) mg/dL Estim Creat Clear Calc Not Reportable Estimated GFR > 60 (59 - ) Glucose 119 H (65-110) mg/dL Calcium 9.4 (8.4-10.2) mg/dL Total Bilirubin 0.7 (0.2-1.3) mg/dL AST 24 (14-36) U/L ALT 11 (6-35) U/L Alkaline Phosphatase 91 (38-126) U/L Total Protein 7.7 (6.3-8.2) g/dL Albumin 4.3 (3.5-5.1) g/dL Imaging Data Radiologist's impression: ITS Impressions Head CT 03/25/25 16:57 IMPRESSION: 1. No acute intracranial abnormality. ECG Data EKG #1: Attestation: I personally reviewed and interpreted this ECG as follows: ECG completion date: 03/25/25 ECG completion time: 21:21 Interpretation: Sinus tachycardia rate of 101 beats per minute. Occasional PVC. DE interval 173. QRS 68. QT/QTC 337/437. Good R-wave progression across the precordial leads. No T-wave inversion. Baseline wander of the isoelectric line limits full interpretation however there are no marked ST segment elevations or depressions. Discharge Plan Discharge Clinical Impression: Dizziness of unknown etiology, Chronic hyponatremia Patient Disposition: Home Condition: Stable Instructions: Antibiotic Form, Hyponatremia (ED), Lightheadedness (ED), Dizziness (ED) Additional Instructions: Given that you have persistently had these issues, I recommend follow up with your PCP as well as neurology. The name of a neurologist is listed below. You are being prescribed the medication that seemed to help your dizziness the most while in the ED. return to the emergency department with any new or worsening symptoms. Patient Language: Albanian Prescriptions: New promethazine 12.5 mg tablet 12.5 mg PO TID PRN (Reason: dizziness or vertigo) Qty: 21 0RF No Action venlafaxine 150 mg capsule,extended release 24hr 150 mg PO QPM pantoprazole 40 mg tablet,delayed release (DR/EC) 40 mg PO Q12H latanoprost 0.005 % drops 1 drp RIGHT EYE BID dorzolamide 2 % drops 1 drp RIGHT EYE DAILY meclizine 12.5 mg tablet 12.5 mg PO DAILY PRN (Reason: dizziness) metoprolol succinate 25 mg tablet extended release 24 hr 25 mg PO DAILY prednisone 20 mg Tablet 40 mg PO DAILY@0800 Qty: 2 0RF ondansetron 4 mg tablet,disintegrating 4 mg PO Q8H PRN (Reason: nausea and vomiting) Qty: 10 0RF Follow-up/Referrals: Teetee,Ruddy Davis MD [Primary Care Provider, Unknown] Faisal Tomlin MD [Physician, Neurology] Time of Disposition: 01:57
[2025-03-25 20:24] LABS: Hematocrit 31.7 % (37.0-47.0); Hemoglobin 10.1 g/dL (12.0-15.0); Immature Granulocyte Percent A 0.7 % (0-0.5); Lymphocytes Absolute Auto 2.30 K/mm3 (0.9-3.2); Mean Corpuscular HGB Conc 31.9 g/dl (32-36); Mean Corpuscular Hemoglobin 27.2 pg (26-34); Mean Corpuscular Volume 85.2 fl (80-100); Nucleated Red Blood Cells Absolute Auto 0.000 K/mm3 (0.0-0.012); Nucleated Red Blood Cells Perc 0.0 % (0.0-0.2); Platelet Count Result 348 k/mm3 (150-375); Red Blood Count 3.72 M/mm3 (4.2-5.4); White Blood Count 8.5 K/mm3 (4.5-10.0)
[2025-03-25 20:36] LABS: Alanine Aminotransferase 11 U/L (6-35); Albumin Level 4.3 g/dL (3.5-5.1); Alkaline Phosphatase 91 U/L (38-126); Anion Gap 8 mmol/L (4-12); Aspartate Amino Transferase 24 U/L (14-36); Bilirubin,Total 0.7 mg/dL (0.2-1.3); Blood Urea Nitrogen 16 mg/dL (7-17); Calcium 9.4 mg/dL (8.4-10.2); Carbon Dioxide 25 mmol/L (22-30); Chloride 98 mmol/L (98-107); Estimated Glomerular Filt Rate > 60; Glucose 119 mg/dL (65-110); Potassium 3.4 mmol/L (3.4-5.0); Sodium 131 mmol/L (137-145); Total Protein 7.7 g/dL (6.3-8.2)
[2025-03-25] MEDS: MECLIZINE HCL 25 MG TABLET PO (20:49)
[2025-03-25] MEDS: diazePAM (*CRX) 2 MG TABLET PO (22:13)
--- NOTE | 2025-03-25 23:50 | PC.NURSE ---
tolerated fair with walker and standby assist. + occasional unstable with guidance.
[2025-03-26] MEDS: PROMETHAZINE HCL 25 MG TABLET PO (00:35)
[2025-03-26 00:36] VITALS: BP 126/84; PULSE 100; RESP 18; O2SAT 98
[2025-03-26 02:20] VITALS: BP 153/78
== END 2025-03-26 02:21 | disposition home or self-care (01) ==
PROVIDERS: Registered Nurse; Emergency Provider Student in an Organized Health Care Education/Training Program; PCP Family Medicine
DX: E87.1 Hypo-osmolality and hyponatremia (principal); I10 Essential (primary) hypertension; R42 Dizziness and giddiness
CPT/HCPCS: 36415; 70450; 80053; 85025; 93005; 99284; A9270